=== PATIENT | male | born 1945 | race Caucasian/White ===

== ENCOUNTER → 2018-01-19 08:03 | Outpatient (CLI) | payer MEDICARE, SELFPAY ==
[2018-01-19 10:19] LABS: AST(SGOT) 24 U/L (15-37); Alanine Aminotransfer ALT/SGPT 34 U/L (16-61); Albumin, Serum 3.9 g/dL (3.2-5.0); Alkaline Phosphatase 70 U/L (45-117); Bilirubin, Direct 0.18 mg/dL (0.00-0.30); Cholesterol 125 mg/dL (200); Globulin 3.7 g/dL (2.2-4.2); High Density Lipoprotein 54 mg/dL; Protein, Total 7.6 g/dL (6.4-8.2); Triglycerides 80 mg/dL; Very Low Density Lipoprotein 16 mg/dL (5-40)
== END ==
PROVIDERS: Family Provider Family Medicine; PCP Family Medicine; Visit Provider Physician Assistant Medical
DX: E78.5 Hyperlipidemia, unspecified (principal); Z79.899 Other long term (current) drug therapy
CPT/HCPCS: 36415; 80061; 80076

== ENCOUNTER → 2018-02-08 06:11 | Outpatient (CLI) | payer MEDICARE, SELFPAY ==
--- NOTE | 2018-02-08 10:33 | STRESSREP ---
Stress Test Report Pharmacologic myocardial perfusion stress test. 72-year-old man with a history of chest pain. Medications: Aspirin metoprolol atorvastatin Plavix. Stress protocol: Resting EKG demonstrates sinus bradycardia with a rate of 56 bpm normal intervals and noted resting blood pressure is 138/84 mmHg. The patient exercised according to regular Jovanni protocol for 6 minutes and 45 seconds attaining a maximum heart rate of 153 bpm which was 103% of maximum predicted heart rate the maximum workload was 8.1 metabolic equivalents. At rest there were no ST or T-wave changes noted suggest ischemia peak exercise upsloping ST changes only were noted would not be the criteria for ischemia. No clinical angina was noted the test was terminated due to leg fatigue. The resting blood pressure 138/84 with a peak blood pressure 172/82. Myocardial perfusion protocol. 14.3 mCi of technetium 99m sestamibi was injected at rest. The patient exercised according to regular Jovanni protocol for 6 minutes and 45 seconds at 103% of maximum predicted heart rate at peak exercise 44.4 mCi of technetium 99m sestamibi was injected stress images were obtained stress and rest images were reconstructed and compared in the short axis vertical long and horizontal long axis. Gated images were also obtained. Perfusion SPECT analysis: Review of the stress images demonstrate normal uptake of tracer noted in all areas of the myocardium the resting images similarly demonstrate normal uptake of tracer noted in all areas of the myocardium. No areas of reversibility are noted suggest ischemia and no previous infarct is noted. Gated SPECT analysis: The gated ejection fraction is noted to be 66%. Conclusion: Normal exercise myocardial perfusion stress test at a moderate workload No clinical angina noted. Good functional aerobic capacity. Preserved ejection fraction.
== END ==
PROVIDERS: Family Provider Family Medicine; PCP Family Medicine; Visit Provider Internal Medicine Cardiovascular Disease
DX: R07.89 Other chest pain (principal)
CPT/HCPCS: 78452; 93017; A9500; A4216

== ENCOUNTER → 2018-07-19 08:08 | Outpatient (CLI) | payer MEDICARE, SELFPAY ==
[2018-07-19 09:20] LABS: AST(SGOT) 24 U/L (15-37); Alanine Aminotransfer ALT/SGPT 36 U/L (16-61); Albumin, Serum 3.9 g/dL (3.2-5.0); Alkaline Phosphatase 67 U/L (45-117); Bilirubin, Direct 0.21 mg/dL (0.00-0.30); Cholesterol 123 mg/dL (200); Globulin 3.6 g/dL (2.2-4.2); High Density Lipoprotein 47 mg/dL; PSA,Total- Diagnostic 8.71 ng/mL (0.0-4.0); Protein, Total 7.5 g/dL (6.4-8.2); Triglycerides 71 mg/dL; Very Low Density Lipoprotein 14 mg/dL (5-40)
== END ==
PROVIDERS: Family Provider Family Medicine; PCP Family Medicine; Referring Provider Physician Assistant Medical; Visit Provider Physician Assistant Medical
DX: E78.5 Hyperlipidemia, unspecified (principal); R97.20 Elevated prostate specific antigen [PSA]
CPT/HCPCS: 36415; 80061; 80076; 84153

== ENCOUNTER → 2019-01-18 | Outpatient (CLI) | payer MEDICARE, SELFPAY ==
[2019-01-18 08:49] LABS: AST(SGOT) 27 U/L (15-37); Alanine Aminotransfer ALT/SGPT 37 U/L (16-61); Albumin, Serum 3.9 g/dL (3.2-5.0); Alkaline Phosphatase 80 U/L (45-117); Bilirubin, Direct 0.24 mg/dL (0.00-0.30); Cholesterol 116 mg/dL (200); Globulin 3.4 g/dL (2.2-4.2); High Density Lipoprotein 47 mg/dL; Protein, Total 7.3 g/dL (6.4-8.2); Triglycerides 79 mg/dL; Very Low Density Lipoprotein 16 mg/dL (5-40)
== END | disposition home or self-care (01) ==
PROVIDERS: Referring Provider Physician Assistant Medical; Visit Provider Physician Assistant Medical
DX: E78.5 Hyperlipidemia, unspecified (principal)
CPT/HCPCS: 36415; 80061; 80076

== ENCOUNTER → 2019-01-25 11:24 | Outpatient (CLI) | payer MEDICARE, SELFPAY ==
[2019-01-25 10:13] VITALS: BMI 26.6
== END ==
PROVIDERS: Family Provider Family Medicine; PCP Family Medicine; Referring Provider Internal Medicine Cardiovascular Disease; Visit Provider Internal Medicine Cardiovascular Disease
DX: R55 Syncope and collapse (principal); R00.1 Bradycardia, unspecified
CPT/HCPCS: 93225; 93226

== ENCOUNTER → 2019-02-17 08:23 | Outpatient (CLI) | payer MEDICARE, SELFPAY ==
[2019-01-25 10:13] VITALS: BMI 26.6
--- NOTE | 2019-02-17 08:24 | ECHOCS_ITS ---
Reason For Study: CAD/ASHD Procedure This was a 2D Doppler, Color Flow transthoracic echocardiogram. Exam performed in department. Left Ventricle Normal LV size. Left ventricular systolic function is normal. The estimated ejection fraction is 55 %. Stage 2 diastolic dysfunction. No regional wall motion abnormalities noted. Right Ventricle Normal RV size. Normal systolic function. Atria Normal left atrium. Normal right atrium. Mitral Valve Normal mitral valve. Tricuspid Valve Normal tricuspid valve. Mild (1+) tricuspid valve insufficiency. Pulmonary artery systolic pressure is 35 mmHg. Aortic Valve Normal aortic valve. Trisinus/trileaflet aortic valve. Pulmonic Valve Normal pulmonic valve. Great Vessels Normal aortic root. The pulmonary artery is normal size. Normal inferior vena cava. Pericardium/Pleural No pericardial effusion. Medication 22 gauge I.V. with prn adaptor inserted into right arm. Diluted definity 4ml given slow IV push to enhance endocardial definition. MMode/2D Measurements & Calculations LVIDd: 4.8 cm IVSd: 0.69 cm Ao root diam: 3.3 cm LVIDs: 3.3 cm LVPWd: 0.81 cm RVDd: 3.3 cm FS: 31.9 % LAV(MOD-bp): 58.3 ml LVAd ap4: 30.5 cm2 SV(MOD-sp4): 51.1 ml LAV(MOD-bp) Indexed: 26.3 ml/m2 EDV(MOD-sp4): 90.6 ml LAV(MOD-sp2): 61.8 ml EDV(sp4-el): 93.1 ml LAV(MOD-sp4): 54.2 ml LVAs ap4: 18.1 cm2 ESV(MOD-sp4): 39.5 ml ESV(sp4-el): 39.5 ml EF(MOD-sp4): 56.4 % EF(sp4-el): 57.6 % SV(sp4-el): 53.6 ml LA A4 area: 19.7 cm2 LA dimension(2D): 3.6 cm RA A4 area: 17.2 cm2 Time Measurements MV dec time: 0.18 sec Doppler Measurements & Calculations MV E max reese: 92.6 cm/sec Lat Peak E' Reese: 11.6 cm/sec Med Peak E' Reese: 12.3 cm/sec MV A max reese: 56.4 cm/sec E/E' lat: 8.0 E/E' med: 7.5 MV E/A: 1.6 Ao V2 max: 113.2 cm/sec LV V1 max: 106.1 cm/sec PA V2 max: 86.3 cm/sec Ao max P.1 mmHg LV V1 max P.5 mmHg TR max reese: 276.4 cm/sec TR max P.7 mmHg Interpretation Summary Normal LV size. Left ventricular systolic function is normal. The estimated ejection fraction is 55 %. Stage 2 diastolic dysfunction. Mild (1+) tricuspid valve insufficiency. Contrast injection was performed. Ordering Physician: Joshua Bennett Referring Physician: DENNIS SHAIKH Performed By: Maryse Truong RDCS
== END ==
PROVIDERS: Family Provider Family Medicine; PCP Family Medicine; Referring Provider Internal Medicine Cardiovascular Disease; Visit Provider Internal Medicine Cardiovascular Disease
DX: R55 Syncope and collapse (principal)
CPT/HCPCS: 93306; Q9957; A4216; C8929

== ENCOUNTER → 2019-08-10 07:33 | Outpatient (CLI) | payer MEDICARE, SELFPAY ==
[2019-01-25 10:13] VITALS: BMI 26.6
[2019-08-10 08:57] LABS: AST(SGOT) 21 U/L (15-37); Alanine Aminotransfer ALT/SGPT 34 U/L (16-61); Albumin, Serum 3.8 g/dL (3.2-5.0); Alkaline Phosphatase 70 U/L (45-117); Bilirubin, Direct 0.22 mg/dL (0.00-0.30); Cholesterol 133 mg/dL (200); Globulin 3.6 g/dL (2.2-4.2); High Density Lipoprotein 60 mg/dL; Protein, Total 7.4 g/dL (6.4-8.2); Triglycerides 71 mg/dL; Very Low Density Lipoprotein 14 mg/dL (5-40)
== END ==
PROVIDERS: Family Provider Family Medicine; PCP Family Medicine; Referring Provider Physician Assistant Medical; Visit Provider Physician Assistant Medical
DX: E78.5 Hyperlipidemia, unspecified (principal)
CPT/HCPCS: 36415; 80061; 80076

== ENCOUNTER → 2020-02-09 08:26 | Outpatient (CLI) | payer MEDICARE, SELFPAY ==
[2019-08-18 08:30] VITALS: BMI 27.2
[2020-02-09 09:50] LABS: AST(SGOT) 26 U/L (15-37); Alanine Aminotransfer ALT/SGPT 38 U/L (16-61); Albumin, Serum 3.7 g/dL (3.2-5.0); Alkaline Phosphatase 75 U/L (45-117); Bilirubin, Direct 0.21 mg/dL (0.00-0.30); Cholesterol 115 mg/dL (200); Globulin 3.4 g/dL (2.2-4.2); High Density Lipoprotein 56 mg/dL; Protein, Total 7.1 g/dL (6.4-8.2); Triglycerides 63 mg/dL; Very Low Density Lipoprotein 13 mg/dL (5-40)
== END ==
PROVIDERS: PCP Family Medicine; Referring Provider Physician Assistant Medical; Visit Provider Physician Assistant Medical
DX: E78.00 Pure hypercholesterolemia, unspecified (principal); E78.5 Hyperlipidemia, unspecified
CPT/HCPCS: 36415; 80061; 80076

== ENCOUNTER → 2020-08-16 07:45 | Outpatient (CLI) | payer MEDICARE, SELFPAY ==
[2019-08-18 08:30] VITALS: BMI 27.2
[2020-08-16 08:43] LABS: AST(SGOT) 25 U/L (15-37); Alanine Aminotransfer ALT/SGPT 38 U/L (16-61); Albumin, Serum 3.8 g/dL (3.2-5.0); Alkaline Phosphatase 80 U/L (45-117); Bilirubin, Direct 0.24 mg/dL (0.00-0.30); Cholesterol 130 mg/dL (200); Globulin 3.7 g/dL (2.2-4.2); High Density Lipoprotein 58 mg/dL; Protein, Total 7.5 g/dL (6.4-8.2); Triglycerides 61 mg/dL; Very Low Density Lipoprotein 12 mg/dL (5-40)
== END ==
PROVIDERS: PCP Family Medicine; Referring Provider Internal Medicine Cardiovascular Disease; Visit Provider Internal Medicine Cardiovascular Disease
DX: E78.00 Pure hypercholesterolemia, unspecified (principal); E78.5 Hyperlipidemia, unspecified
CPT/HCPCS: 36415; 80061; 80076

== ENCOUNTER → 2021-08-20 08:09 | Outpatient (CLI) | payer MEDICARE, SELFPAY ==
[2021-08-20 09:03] LABS: AST(SGOT) 25 U/L (15-37); Alanine Aminotransfer ALT/SGPT 40 U/L (16-61); Albumin, Serum 3.7 g/dL (3.2-5.0); Alkaline Phosphatase 76 U/L (45-117); Bilirubin, Direct 0.18 mg/dL (0.00-0.30); Cholesterol 127 mg/dL (200); Globulin 3.6 g/dL (2.2-4.2); High Density Lipoprotein 50 mg/dL; Protein, Total 7.3 g/dL (6.4-8.2); Triglycerides 90 mg/dL; Very Low Density Lipoprotein 18 mg/dL (5-40)
== END ==
PROVIDERS: PCP Family Medicine; Referring Provider Internal Medicine Cardiovascular Disease; Visit Provider Internal Medicine Cardiovascular Disease
DX: E78.00 Pure hypercholesterolemia, unspecified (principal)
CPT/HCPCS: 36415; 80061; 80076

== ENCOUNTER → 2021-09-03 07:12 | Outpatient (CLI) | payer MEDICARE, SELFPAY ==
--- NOTE | 2021-09-03 17:34 | STRESSREP ---
Stress Test Report Exercise myocardial perfusion stress test. 75-year-old man with a history of coronary artery disease. Medications losartan aspirin atorvastatin Plavix. Stress protocol: Resting EKG demonstrates normal sinus rhythm with a rate of 62 bpm normal intervals are noted resting blood pressure is 128/84 mmHg. The patient exercised according to the regular Jovanni protocol for total duration of 6 minutes and 21 seconds. Patient completed 21 seconds into stage III of the Jovanni protocol the maximum heart rate attained was 148 bpm which was 102% of max impact at heart rate and the maximum workload was 8 metabolic equivalents. At rest there were no ST or T wave changes noted to suggest ischemia and at peak exercise upsloping ST changes less than 1 mm were noted with did not meet the criteria for ischemia. No clinical angina was noted the test was terminated due to target heart rate being achieved. Myocardial perfusion protocol. 13.8 mCi of technetium 99m sestamibi was injected at rest. The patient exercised according to regular Jovanni protocol for 6-1/2 minutes and at peak exercise 44.1 mCi of technetium 99m sestamibi was injected stress images were obtained stress and rest images were reconstructed and compared in the short axis vertical long and horizontal long axis. Gated images were also obtained per Perfusion SPECT analysis: Review of the stress images demonstrate normal uptake of tracer noted in all areas of the myocardium. The resting images similarly demonstrate normal uptake of tracer noted in all areas of the myocardium. No areas of reversibility are noted to suggest ischemia and no evidence of previous infarct is noted. Gated SPECT analysis: The gated ejection fraction is 50%. Conclusion: Normal exercise myocardial perfusion stress test at a moderate workload. Preserved ejection fraction.
== END ==
PROVIDERS: PCP Family Medicine; Referring Provider Internal Medicine Cardiovascular Disease; Visit Provider Internal Medicine Cardiovascular Disease
DX: Z95.5 Presence of coronary angioplasty implant and graft (principal); I25.10 Atherosclerotic heart disease of native coronary artery without angina pectoris
CPT/HCPCS: 78452; 93017; A9500; A4216

== ENCOUNTER → 2022-08-20 | Outpatient (CLI) | payer MEDICARE, SELFPAY ==
[2022-08-20 09:29] LABS: AST(SGOT) 26 U/L (15-37); Alanine Aminotransfer ALT/SGPT 34 U/L (16-61); Alkaline Phosphatase 74 U/L (45-117); Bilirubin, Direct 0.25 mg/dL (0.00-0.30); Cholesterol 132 mg/dL (200); Globulin 3.7 g/dL (2.2-4.2); High Density Lipoprotein 60 mg/dL; Protein, Total 7.7 g/dL (6.4-8.2); Triglycerides 63 mg/dL; Very Low Density Lipoprotein 13 mg/dL (5-40)
== END | disposition home or self-care (01) ==
LOC: LAB 08:25
PROVIDERS: PCP Family Medicine; Referring Provider Internal Medicine Cardiovascular Disease; Visit Provider Internal Medicine Cardiovascular Disease
DX: E78.00 Pure hypercholesterolemia, unspecified (principal)
CPT/HCPCS: 36415; 80061; 80076

== ENCOUNTER → 2023-05-28 | Outpatient (CLI) | payer MEDICARE, SELFPAY ==
[2023-05-28 09:43] LABS: AST(SGOT) 29 U/L (15-37); Alanine Aminotransfer ALT/SGPT 43 U/L (16-61); Albumin, Serum 3.9 g/dL (3.2-5.0); Alkaline Phosphatase 74 U/L (45-117); Bilirubin, Direct 0.22 mg/dL (0.00-0.30); Cholesterol 101 mg/dL (200); Globulin 3.6 g/dL (2.2-4.2); High Density Lipoprotein 42 mg/dL; Protein, Total 7.5 g/dL (6.4-8.2); Triglycerides 51 mg/dL; Very Low Density Lipoprotein 10 mg/dL (5-40)
== END | disposition home or self-care (01) ==
LOC: LAB 08:27
PROVIDERS: PCP Family Medicine; Referring Provider Internal Medicine Cardiovascular Disease; Visit Provider Internal Medicine Cardiovascular Disease
DX: E78.00 Pure hypercholesterolemia, unspecified (principal)
CPT/HCPCS: 36415; 80061; 80076

== ENCOUNTER → 2024-05-27 | Outpatient (CLI) | payer MEDICARE, SELFPAY ==
[2024-05-27 11:03] LABS: Absolute Lymphocyte Count 2.29 X10^3/uL (0.83-4.51); Absolute Neutrophil Count 3.9 X10^3/uL (2.0-7.7); Basophil# 0.05 X10^3/uL; Basophil% 0.7 % (0-1); Eosinophil# 0.08 X10^3/uL; Eosinophils% 1.2 % (0-5); Hematocrit 40.4 % (40-54); Lymphocyte # 2.29 X10^3/ul (0.83-4.51); Lymphocyte % 33.6 % (19-41); Mean Corp Hgb Conc 32.2 g/dL (32-36); Mean Corpuscular Volume 93.1 fL (80-94); Mean Platelet Vol. 9.6 fl (6.2-12.0); Monocyte# 0.53 X10^3/uL; Monocyte% 7.8 % (0-10); NRBC Flagged by Analyzer 0 % (0-5); Neutrophil # 3.85 X10^3/uL (2.7-7.7); Neutrophil % 56.4 % (47-70); Platelet Count 200 K/mm3 (150-450); RBC Distribution Width CV 16.2 % (11.6-14.6); Red Blood Count 4.34 M/mm3 (4.6-6.2); White Blood Count 6.8 K/mm3 (4.4-11.0)
[2024-05-27 11:41] LABS: CRP < 2.90 mg/L (0.0-3.0)
[2024-05-27 11:54] LABS: Erythrocyte Sedimentation Rate 6 mm/hr (0-20)
== END | disposition home or self-care (01) ==
PROVIDERS: PCP Family Medicine; Referring Provider Specialist; Visit Provider Specialist
DX: Z96.651 Presence of right artificial knee joint (principal)
CPT/HCPCS: 36415; 85025; 85652; 86140

== ENCOUNTER → 2024-07-21 | Outpatient (CLI) | payer MEDICARE, SELFPAY ==
[2024-07-21 10:31] LABS: AST(SGOT) 19 U/L (15-37); Alanine Aminotransfer ALT/SGPT 29 U/L (16-61); Albumin, Serum 3.9 g/dL (3.2-5.0); Alkaline Phosphatase 74 U/L (45-117); Bilirubin, Direct 0.25 mg/dL (0.00-0.30); Cholesterol 116 mg/dL (200); Globulin 3.9 g/dL (2.2-4.2); High Density Lipoprotein 58 mg/dL; Protein, Total 7.8 g/dL (6.4-8.2); Triglycerides 61 mg/dL; Very Low Density Lipoprotein 12 mg/dL (5-40)
== END | disposition home or self-care (01) ==
LOC: LAB 08:17
PROVIDERS: PCP Family Medicine; Referring Provider Physician Assistant Medical; Visit Provider Physician Assistant Medical
DX: E78.00 Pure hypercholesterolemia, unspecified (principal)
CPT/HCPCS: 36415; 80061; 80076

== ENCOUNTER → 2024-08-08 | Outpatient (CLI) | payer MEDICARE, SELFPAY ==
--- OUTSIDE RECORDS SUMMARY | 2024-08-08 06:00 | XMS RPT_ITS | CCD ---
Author Organization [facility] Care Team Providers Care Street Supervisor Name Role Phone DENNIS SHAIKH DO Primary Care Physician [phone] Jai MARSHALL, Shawna Unavailable Unavailable Anu Dominguez Primary Care Provider [phone] Anu Dominguez Primary Care Provider [phone] DENNIS SHAIKH DO Primary Care Physician [phone] [employer] DENNIS North DO Primary Care Unavailable MATY NAVARRO, DR JUDSON Whitehead Attending Unavailab stella RUTLEDGE MD, DR JUDSON Whitehead Admitting Unavailab stella SHAIKH DO, DENNIS Primary Care Unavailable EMIR CORDERO DO Attending Unavailable HAWA LUIS, DENNIS Primary Care Unavailable MATY NAVARRO, DR JUDSON Whitehead Attending Unavailab ERASMO Leiva Attending Tabitha SHAIKH DO, DENNIS Primary Care Unavailable HAWA LUIS, DENNIS Primary Care Unavailable DENNIS SHAIKH DO Attending Unavailable MATY NAVARRO, DR JUDSON Whitehead Attending Unavailab stella SHAIKH DO, DENNIS Primary Care Unavailable HAWA LUIS, DENNIS Primary Care Unavailable MATY NAVARRO, DR JUDSON Whitehead Attending Unavailab stella SHAIKH DO, DENNIS Primary Care Unavailable LENKA DEXTER PA-C Attending Unavailable LASHELL HALL, ERASMO Stringer Attending Unavai soo SHAIKH DO, DENNIS Primary Care Unavailable HAWA DO, DENNIS Primary Care Unavailable DENNIS SHAIKH DO Attending Unavailable Anu Dominguez Primary Care Provider Dennis Shaikh DO Primary Care Provider [phone] DENNIS SHAIKH Primary Care Unavailable TEENA CROCKETT Attending Unavailable ANU DOMINGUEZ Primary Care Unavailable TEENA CROCKETT Attending Unavailable Allergies Allergy Classification Reported Allergen(s) Allergy Type Date of Onset Reaction(s) Facility (13 sources) Diclofenac; Translations: [diclofenac topical] Drug Allergy Swelling [facility] (18 sources) Fluorouracil; Translations: [fluorouracil topical] Drug Allergy 08-18-2019 Rash [facility] (11 sources) Diclofenac; Translations: [DICLOFENAC SODIUM] Drug Allergy 07-23-2017 Swelling [facility] Work Phone: Medications Current Medications Medication Drug Class(es) Dates Sig (Normalized) Sig (Original) acetaminophen 1000 mg oral tablet (5 sources) Start: 12-02-2023 take 1 tablet by mouth once daily Tylenol Dose : 1,000 mg = 2 tab(s), Oral, TID, not to exceed 3000 mg/day, 0 Refill(s) Start Date: 12/02/23 Status: Ordered aspirin 81 mg oral tablet (20 sources) Platelet Aggregation Inhibitor, Nonsteroidal Anti-inflammatory Drug Start: 12-02-2023 take 1 tablet by mouth twice daily at mealtime aspirin Dose : 81 mg = 1 tab(s), Oral, BIDM, Take 81 mg aspirin twice daily with food for 4 weeks postoperatively for DVT prophylaxis., 0 Refill(s) Start Date: 12/02/23 Status: Ordered Start: 08-31-2019 take 1 dose by mouth once judi y aspirin Dose : 81 mg =, Oral, qDay, 0 Refill(s) Start Date: 08/31/19 Status: Ordered Start: 11-27-2011 take 1 tablet by [facility] once daily aspirin 81 mg ORAL chewable tablet Take 1 tablet by mouth once daily. 0 11/27/2011 Active Comment on above: Take 1 tablet by helena [facility] once daily. atorvastatin 80 mg oral tablet (20 sources) HMG-CoA Reductase Inhibitor Start: 6 Lipitor 80 mg oral tablet Dose : 80 mg = 1 tab(s), Oral, Daily Start Date: 07/27/16 Status: Ordered Comment on above: take one tablet judi y citalopram 20 mg oral tablet (1 source) Serotonin Reuptake Inhibitor Start: 3 citalopram 20 mg oral tablet Dose : 20 mg = 1 tab(s), Oral, qDay, Start with taking 1/2 tablet daily for 2 weeks then increase to 1 whole tablet daily. Discontinue Zoloft prescription please, # 30 tab(s), 2 Refill(s), Pharmacy: [facility]/pharmacy #[id number], Depression Anxiety, 186.5, cm... Start Date: 03/17/23 Status: Ordered clopidogrel 75 mg oral tablet (20 sources) P2Y12 Platelet Inhibitor Start: 6 Plavix 75 mg oral tablet Dose : 75 mg = 1 tab(s), Oral, Daily Start Date: 07/27/16 Status: Ordered Comment on above: take one tablet judi y docusate sodium 50 mg / sennosides, nursing home 8.6 mg oral tablet (2 sources) Start: 4 End: 4 take 1 tablet by mouth twice daily Senokot S 50 mg-8.6 mg oral tablet Dose = 2 tab(s), Oral, BID, Take until first bowel movement, then as needed, X 3 day(s), # 12 tab(s), 0 Refill(s), Pharmacy: [facility]/pharmacy #[id number], 186, cm, 12/01/23 14:02:00 EST, Height, kg, 12/01/23 14:02:00 EST, Dosing Weight Start Date: 12/02/23 Stop Date: 12/05/23 Status: Ordered doxycycline hyclate 100 mg oral capsule (2 sources) Tetracycline-class Drug Start: 4 End: 4 doxycycline hyclate 100 mg oral capsule Dose : 100 mg = 1 cap(s), Oral, q12h, X 14 day(s), # 28 cap(s), 0 Refill(s), 12/16/23 7:40:00 AM EST, Pharmacy: [facility]/pharmacy #[id number], 186, cm, 12/01/23 14:02:00 EST, Height, 97.1, kg, 12/01/23 14:02:00 EST, Dosing Weight Start Date: 12/02/23 Stop Date: 12/16/23 Status: Ordered famotidine 20 mg oral tablet (4 sources) Histamine-2 Receptor Antagonist Start: 4 Pepcid 20 mg oral tablet Dose : 20 mg = 1 tab(s), Oral, qDay, # 30 tab(s), 0 Refill(s), Pharmacy: [facility]/pharmacy #[id number], 186, cm, 12/01/23 14:02:00 EST, Height, kg, 12/01/23 14:02:00 EST, Dosing Weight Start Date: 12/02/23 Status: Ordered iv contrast (will be provided with radiology test) (10 sources) Start: 1 iv contrast (will be provided with radiology test) Indications: Elevated prostate specific antigen (PSA) MRI Prostate Inject, intravenously, once for 1 dose. No IV access, insert saline lock prior to the beginning of sedation, infusion, injection of imaging exam. Discontinue saline lock post exam. If Pt. has a central line or IVAD, may access for administration according to line specific nursing protocol. Once exam is complete flush line and de-access according to line specific nursing protocol in the MR contrast administration guidelines link. 1 Each 09/20/2021 Active Start: 09-20-2021 iv contrast (w ill be provided with radiology test) Indications: Elevated prostate specific antigen (PSA) MRI Prostate Inject, intravenously, once for 1 dose. No IV access, insert saline lock prior to the beginning of sedation, infusion, injection of imaging exam. Discontinue saline lock post exam. If Pt. has a central line or IVAD, may access for administration according to line specific nursing protocol. Once exam is complete flush line and de-access according to line specific nursing protocol in the MR contrast administration guidelines link. 1 Each 0 09/20/2021 Active Comment on above: MRI Prostate Inject, intravenously, once for 1 dose. No IV access, insert saline lock prior to the beginning of sedation, infusion, injection of imaging exam. Discontinue saline lock post exam. If Pt. has a central line or IVAD, may access for administration according to line specific nursing protocol. Once exam is complete flush line and de-access according to line specific nursing protocol in the MR contrast administration guidelines link. lisinopril 10 mg oral tablet (10 sources) Angiotensin Converting Enzyme Inhibitor Start: 020 take 1 tablet by mouth once daily lisinopril (ZESTRIL, PRINIVIL) 10 mg tablet Take 10 mg by mouth once daily. 08/23/2020 Active Comment on above: Take 10 mg by mouth once daily. losartan potassium 50 mg oral tablet (20 sources) Angiotensin 2 Receptor Jeremy Start: take 1 tablet by mouth once daily losartan (COZAAR) 50 mg tablet Take 50 mg by mouth once daily. 09/11/2021 Active Comment on above: Take 50 mg by mouth once daily. oxyCODONE hydrochloride 5 mg oral tablet (2 sources) Opioid Agonist Start: End: take 1-2 tablets by mouth every four hours as needed for pain oxyCODONE 5 mg oral tablet ( IMMEDIATE release ) See Instructions, PRN as needed for pain, 1-2 tab(s) Oral q4h, # 42 tab(s), 0 Refill(s), 12/09/23 7:41:00 AM EST, Pharmacy: [facility]/pharmacy #[id number], Status post revision of total replacement of right knee, 186, cm, 12/01/23 14:02:00 EST, Height, 97.1, kg, 12/01/23 14:02:00 EST, Dosing Weight Start Date: 12/02/23 Stop Date: 12/09/23 Status: Ordered pantoprazole 20 mg delayed release oral tablet (1 source) Proton Pump Inhibitor Start: Protonix 20 mg oral enteric coated tablet Dose : 20 mg = 1 tab(s), Oral, qDay, # 30 tab(s), 5 Refill(s), Pharmacy: [facility]/pharmacy #[id number], GERD (gastroesophageal reflux disease), 186.8, cm, 09/11/21 13:24:00 EST, Height, kg, 09/11/21 13:24:00 EST, Dosing Weight Start Date: 09/11/21 Status: Ordered sertraline 100 mg oral tablet (20 sources) Serotonin Reuptake Inhibitor Start: take 1 tablet by mouth once daily sertraline hcl(ZOLOFT 100 MG TAB) Take 100 mg by mouth once daily. 0 12/07/2008 Active Comment on above: Take one(1) tablet d aily. sulfamethoxazole 800 mg / trimethoprim 160 mg oral tablet (2 sources) Dihydrofolate Reductase Inhibitor Antibacterial, Sulfonamide Antimicrobial Start: End: take 1 tablet by mouth every twelve hours Bactrim DS 800 mg-160 mg oral tablet 1, Oral, q12h, X 7 day(s), # 14 tab(s), 0 Refill(s), [id number], 185.5, cm, 01/28/24 14:02:00 EDT, Height, 95.5, kg, 01/28/24 14:02:00 EDT, Dosing Weight Start Date: 01/28/24 Stop Date: 02/04/24 Status: Ordered Start: 01-19-2024 End: 01-26-2024 take 1 tablet by mouth every twelve hours Bactrim DS 800 mg-160 mg oral tablet Dose = 1 tab(s), Oral, q12h, Dosage expressed as trimethoprim, X 7 day(s), # 14 tab(s), 0 Refill(s), [id number], 185.4, cm, 01/19/24 13:20:00 EDT, Height, 96.8, kg, 01/19/24 13:07:00 EDT, Dosing Weight Start Date: 01/19/24 Stop Date: 01/26/24 Status: Ordered tamsulosin hydrochloride 0.4 mg oral capsule (20 sources) alpha-Adrenergic Jeremy Start: 08-15-2019 End: 08-03-2024 take 1 capsule by mouth once daily tamsulosin (FLOMAX) 0.4 mg take 1 capsule by mouth every day 90 capsule 3 08/03/2024 Active Comment on above: TAKE 1 CAPSULE BY [facility] ONCE DAILY Take 1 capsule by [facility] once daily. vitamin B12 (5 sources) Vitamin B12 Start: 11-10-2023 Vitamin B12 unsure what dose, 0 Refill(s) Start Date: 11/10/23 Status: Ordered Vitamin D3 1250 mcg (50,000 intl units) oral capsule (12 sources) Start: 09-16-2023 End: 09-10-2024 Vitamin D3 1250 mcg (50,000 intl units) oral capsule Dose : 1,250 mcg = 1 cap(s), Oral, qWeek, # 13 cap(s), 3 Refill(s), Pharmacy: [facility]/pharmacy #[id number], Vitamin D deficiency, 186, cm, 09/16/23 11:12:00 EST, Height, kg, 09/16/23 11:12:00 EST, Dosing Weight Start Date: 09/16/23 Stop Date: 09/10/24 Status: Ordered Start: 09-12-2022 End: 09-07-2023 Vitamin D3 1250 mcg (50,000 intl units) oral capsule Dose : 1,250 mcg = 1 cap(s), Oral, qWeek, # 13 cap(s), 3 Refill(s), Pharmacy: [facility]/pharmacy #[id number], Vitamin D deficiency, 187, cm, 09/12/22 10:07:00 EST, Height, kg, 09/12/22 10:07:00 EST, Dosing Weight Start Date: 09/12/22 Stop Date: 09/07/23 Status: Ordered Start: 09-12-2021 End: 09-07-2022 Vitamin D3 1250 mcg (50,000 intl units) oral capsule Dose : 1,250 mcg = 1 cap(s), Oral, qWeek, # 13 cap(s), 3 Refill(s), Pharmacy: [facility]/pharmacy #[id number], Vitamin D deficiency, 186.8, cm, 09/11/21 13:24:00 EST, Height, kg, 09/11/21 13:24:00 EST, Dosing Weight Start Date: 09/12/21 Stop Date: 09/07/22 Status: Ordered Completed/Discontinued Medications Medication Drug Class(es) Dates Sig (Normalized) Sig (Original) 24 hr metoprolol succinate 25 mg extended release oral tablet (20 sources) beta-Adrenergic Jeremy Start: 12-02-2023 End: 12-03-2023 Toprol-XL 25 mg oral tablet, extended release Start: 12/03/23 8:00:00 AM EST, Dose = 25 mg, = 1 tab(s), Oral, 0, 12/01/23 15:27:00 EST Start Date: 12/03/23 Stop Date: 12/03/23 Status: Completed Start: 08-15-2019 Metoprolol Suc cinate ER 25 mg oral tablet, extended release Dose : 25 mg = 1 tab(s), Oral, qDay, # 30 tab(s), 0 Refill(s) Start Date: 08/15/19 Status: Ordered metoprolol tartr ate 25 mg ORAL tablet Take by mouth once daily. Active Comment on above: take one tablet twic e daily Problems Active Problems Problem Classification Problem Date Documented Date Episodic/Chronic Acute myocardial infarction (5 sources) Myocardial infarction 07-27-2016 Chronic Anxiety disorders (9 sources) Anxiety disorder; Translations: [Anxiety disorder, unspecified] Chronic Coronary atherosclerosis and other heart disease (20 sources) Coronary arteriosclerosis; Translations: [History of myocardial infarction] 07-27-2016 Chronic Diabetes mellitus without complication (13 sources) Hyperglycemia 08-21-2020 Episodic Disorders of lipid metabolism (13 sources) Hypercholesterolemia 08-19-2019 Chronic Esophageal disorders (13 sources) Gastroesophageal reflux disease 09-11-2021 Chronic Essential hypertension (17 sources) Hypertensive disorder; Translations: [Essential hypertension] Onset: 3 08-19-2019 Chronic Genitourinary symptoms and ill-defined conditions (1 source) Urinary incontinence; Translations: [Unspecified urinary incontinence] 06-02-2023 Chronic Hemorrhoids (13 sources) Hemorrhoids 08-19-2019 Episodic Hyperplasia of prostate (20 sources) Benign prostatic hypertrophy with outflow obstruction; Translations: [Benign prostatic hyperplasia with lower urinary tract symptoms] Onset: 9 12-07-2008 Chronic Malaise and fatigue (9 sources) Fatigue; Translations: [Other fatigue] Episodic Mood disorders (20 sources) Depressive disorder; Translations: [Major depressive disorder] Onset: 4 07-27-2016 Chronic Nutritional deficiencies (12 sources) Vitamin D deficiency; Translations: [Vitamin D deficiency, unspecified] 03-12-2022 Chronic Nutritional deficiencies (7 sources) Cobalamin deficiency 05-19-2023 Episodic Osteoarthritis (14 sources) Osteoarthritis of left knee joint; Translations: [Osteoarthritis] Onset: 4 08-30-2019 Chronic Other aftercare (1 source) Follow-up orthopedic assessment; Translations: [Aftercare following joint replacement surgery] Chronic Other connective tissue disease (3 sources) Artificial knee joint present; Translations: [Presence of unspecified artificial knee joint] Onset: 4 Chronic Other connective tissue disease (1 source) Disorder of soft tissue; Translations: [Other specified soft tissue disorders] Episodic Other diseases of kidney and ureters (1 source) Disorder of kidney and/or ureter; Translations: [Disorder of kidney and ureter, unspecified] Onset: 4 Episodic Other ear and sense organ disorders (13 sources) 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 01-25-2020 Chronic Other ear and sense organ disorders (13 sources) Sensorineural hearing loss, bilateral 03-20-2020 Chronic Other injuries and conditions due to external causes (1 source) Traumatic AND/OR non-traumatic injury; Translations: [Other injury of unspecified body region, initial encounter] Onset: 4 Episodic Other male genital disorders (10 sources) Erectile dysfunction co-occurrent and due to arterial insufficiency; Translations: [Erectile dysfunction due to arterial insufficiency] Onset: 4 12-22-2013 Chronic Other nervous system disorders (1 source) Walking disability; Translations: [Difficulty in walking, not elsewhere classified] Chronic Other nervous system disorders (1 source) Muscle fasciculation; Translations: [Fasciculation] Episodic Other nervous system disorders (8 sources) Muscle twitch 03-17-2023 Episodic Other non-epithelial cancer of skin (13 sources) Malignant neoplasm of skin 07-27-2016 Episodic Comment on above: basal & squamous guy l Other non-traumatic joint disorders (11 sources) Shoulder pain 03-12-2022 Episodic Other non-traumatic joint disorders (5 sources) Knee pain 11-10-2023 Episodic Other non-traumatic joint disorders (1 source) Pain in right knee; Translations: [Pain of right knee joint] Episodic Residual codes; unclassified (13 sources) Needs influenza immunization 09-11-2021 Episodic Residual codes; unclassified (5 sources) Preoperative state 11-10-2023 Episodic Spondylosis; intervertebral disc disorders; other back problems (20 sources) Low back pain; Translations: [Pain in cervical spine] 03-12-2022 Episodic Unclassified (20 sources) Patient encounter status 09-11-2021 Urinary tract infections (1 source) Acute cystitis; Translations: [Acute cystitis without hematuria] 03-01-2024 Episodic Past or Other Problems Problem Classification Problem Date Documented Date Episodic/Chronic Genitourinary symptoms and ill-defined conditions (20 sources) Nocturia; Translations: [Nocturia] Onset: 11-27-2011 11-27-2011 Episodic Other screening for suspected conditions (not mental disorders or infectious disease) (20 sources) Viral screening status; Translations: [Raised prostate specific antigen] Onset: 12-07-2008 03-12-2022 Episodic Residual codes; unclassified (10 sources) Family history of prostate cancer; Translations: [Family history of malignant neoplasm of prostate] Onset: 11-27-2011 11-27-2011 Episodic Residual codes; unclassified (10 sources) Noncompliance with treatment; Translations: [Patient's noncompliance with other medical treatment and regimen] Onset: 12-25-2011 12-25-2011 Episodic Results Test Name Value Interpretation Reference Range Facility CNOVon 06-07-2024 CNOV Office Visit (UROLWS) LAZARO AMANDA ([id number]) 1945 M Date Time Provider Department 06/07/24 9:00 AM TEENA CROCKETT UROLBRY During your visit today, we recorded the following information about you: Temperature Pulse Respiration Blood pressure 97.5 degrees 76/minute 14/minute 126/68 Weight Height 95.7 kg 1.88 m Lana Yarbrough LPN 06/07/2024 9:55 AM Signed Verified name and date of . CC Post Void Residual HPI: Lazaro Amanda is a 78 year old male. The patient is here now for an appointment with JABARI Polo MT, PA-COV. Procedure: Explained procedure to patient and verbalizes understanding. Performed a PVR. Patient urinated and instructed to empty bladder as much as possible just prior to having PVR done using bladder ultrasound scanner. Results of scan: 0 mL The patient tolerated the procedure well. Plan: Appointment with Teena Parrish PA-C 06/07/2024 9:55 AM Signed [facility] EST[facility]LISHED PATIENT CLINIC NOTE Some elements copied from his previous note, which have been updated where appropriate, and all reflect current medical decision making from date of this visit. NAME: Lazaro Amanda CHIEF COMPLAINT: Annual BPH Follow -up and refills HISTORY OF PRESENT ILLNESS: Lazaro Amanda is a 78 year old male established patient following up for Annual BPH Follow -up and refills The patient reports he is doing quite well no new LUTs and medication working well No Longer following PSA Will call office when Rx needs refilled ISO PSA 3% LUTS: Non new LUTs Other symptoms: ED - no LABS: No results found for: HCT PSA (ng/mL) Date Value 05/27/2022 9.07 10/02/2020 8.30 07/15/2017 7.58 06/24/2016 8.01 12/24/2015 8.47 PSA Screening (ng/mL) Date Value 05/28/2023 8.45 No results found for: TESTOST PSA (ng/mL) Date Value 05/27/2022 9.07 10/02/2020 8.30 07/15/2017 7.58 06/24/2016 8.01 12/24/2015 8.47 PSA Screening (ng/mL) Date Value 05/28/2023 8.45 No results found for: CREAT MEDICATIONS: tamsulosin (FLOMAX) 0.4 mg Take 1 capsule by mouth once daily. losartan (COZAAR) 50 mg tablet Take 50 mg by mouth once daily. aspirin 81 mg ORAL chewable tablet Take 1 tablet by mouth once daily. clopidogrel (PLAVIX) 75 mg tablet Take by mouth once daily. atorvastatin (LIPITOR) 80 mg tablet Take by mouth once daily. metoprolol tartrate 25 mg ORAL tablet Take by mouth once daily. sertraline hcl(ZOLOFT 100 MG TAB) Take 100 mg by mouth once daily. iv contrast (will be provided with radiology test) MRI Prostate Inject, intravenously, once for 1 dose. No IV access, insert saline lock prior to the beginning of sedation, infusion, injection of imaging exam. Discontinue saline lock post exam. If Pt. has a central line or IVAD, may access for administration according to line specific nursing protocol. Once exam is complete flush line and de-access according to line specific nursing protocol in the MR contrast administration guidelines link. lisinopril (ZESTRIL, PRINIVIL) 10 mg tablet Take 10 mg by mouth once daily. PAST MEDICAL HISTORY: PAST MEDICAL HISTORY 03/01/2024: Acute cystitis without hematuria No date: Depression No date: Elevated prostate specific antigen (PSA) No date: Essential hypertension 08/13/2010: Heart attack (HCC) No date: History of BPH 06/02/2023: Urinary incontinence, unspecified type REVIEW OF SYSTEMS: GENERAL: No fever, chills, weight loss, or fatigue. All other systems reviewed and are negative PHYSICAL EXAMINATION: Blood pressure 126/68, pulse 76, temperature 36.4 ?C (97.5 ?F), temperature source Temporal, resp. rate 14, height 188 cm (6' 2 ), weight 95.7 kg (211 lb), SpO2 98%. GENERAL: WNL nutrition, no deformities, healthy appearing PROBLEM LIST REVIEW: Yes LABS: Results for orders placed or performed in visit on 03/01/24 UA DIP, URINE (POC) Result Value Ref Range GLUCOSE UA (POCT) Negative Negative mg/dL BILIRUBIN UA (POCT) Negative Negative KETONE UA (POCT) Negative Negative mg/dL SPECIFIC GRAVITY UA (POCT) >=1.030 1.005 - 1.030 HEMOGLOBIN/BLOOD UA (POCT) Trace-intact (A) Negative PH UA (POCT) 6.0 4.5 - 8.0 PROTEIN UA (POCT) Negative Negative mg/dL UROBILINOGEN UA (POCT) 0.2 Normal E.U./dL NITRITE UA (POCT) Negative Negative LEUKOCYTES UA (POCT) Small (A) Negative COLOR UA (POCT) Dark yellow CLARITY UA (POCT) Clear PROCEDURES: PVR: 0 ml IMPRESSION/PLAN: 1. Benign prostatic hyperplasia with urinary frequency - ICD9: 600.01, 788.41, ICD10: N40.1, R35.0 > No longer follows PSA > Refills not due will call Chronic stable, Medication - Renewed > 1 year Appt w/ B. JABARI Crockett MT, PA-C for annual follow-up and refills. JABARI Polo MT, PA-C Mooney, Brandon, PA-C 06/07/ (more content not included)... Normal [facility] UA DIP, URINE (POC)on 2023 BILIRUBIN UA (POCT) Negative Negative [facility] CLARITY UA (POCT) Slightly Cloudy [facility] COLOR UA (POCT) Dark yellow [facility] GLUCOSE UA (POCT) Negative Negative mg/dL [facility] Hemoglobin Ql (U) Small Abnormal Negative [facility] Interpretation and review of laboratory results Abnormal [facility] KETONE UA (POCT) Negative Negative mg/dL [facility] LEUKOCYTES UA (POCT) Trace Abnormal Negative [facility] NITRITE UA (POCT) Negative Negative [facility] PH UA (POCT) 5.5 4.5 - 8.0 [facility] Protein Ql (U) Negative Negative mg/dL [facility] SPECIFIC GRAVITY UA (POCT) >=1.030 1.005 - 1.030 [facility] UROBILINOGEN UA (POCT) 0.2 Normal E.U./dL [facility] Location:[facility], [address] [facility], [place], [place], [id number] [place] [address] POINT OF CARE [facility] CNOVon 03-01-2024 CNOV Office Visit (UROLWS) LAZARO AMANDA ([id number]) 1945 M Date Time Provider Department 03/01/24 2:00 PM TEENA CROCKETT UROLBRY During your visit today, we recorded the following information about you: Blood pressure Weight 102/58 94.6 kg Ceci Oswald MA 03/01/2024 6:50 PM Signed Patient's post-void bladder scan: 3 ML. MADHURI Baird Brandon, PA-C 03/01/2024 6:50 PM Signed [facility] EST[facility] PATIENT CLINIC NOTE Some elements copied from his previous note, which have been updated where appropriate, and all reflect current medical decision making from date of this visit. SERVICE DATE: March 01, 2024 NAME: Lazaro Amanda CHIEF COMPLAINT: Urinary Tract Infection follow-up HISTORY OF PRESENT ILLNESS: Lazaro Amanda is a 78 year old male an established patient following up for Urinary Tract Infection The patient reports he had a week of chills and low grade fever 100.0* had urine culture that showed Klebsiella on 01/19/2024 And new urine culture on 01/28/2024 was negative after full course of Bactrim Doing well now, will keep his annual follow-up for PSA and prostate check LUTS: None LABS: PSA (ng/mL) Date Value 05/27/2022 9.07 10/02/2020 8.30 07/15/2017 7.58 06/24/2016 8.01 PSA Screening (ng/mL) Date Value 05/28/2023 8.45 No results found for: CREAT No results found for: TESTOST No results found for: HCT PSA (ng/mL) Date Value 05/27/2022 9.07 10/02/2020 8.30 07/15/2017 7.58 06/24/2016 8.01 PSA Screening (ng/mL) Date Value 05/28/2023 8.45 MEDICATIONS: tamsulosin (FLOMAX) 0.4 mg Take 1 capsule by mouth once daily. losartan (COZAAR) 50 mg tablet Take 50 mg by mouth once daily. iv contrast (will be provided with radiology test) MRI Prostate Inject, intravenously, once for 1 dose. No IV access, insert saline lock prior to the beginning of sedation, infusion, injection of imaging exam. Discontinue saline lock post exam. If Pt. has a central line or IVAD, may access for administration according to line specific nursing protocol. Once exam is complete flush line and de-access according to line specific nursing protocol in the MR contrast administration guidelines link. aspirin 81 mg ORAL chewable tablet Take 1 tablet by mouth once daily. clopidogrel (PLAVIX) 75 mg tablet take one tablet daily atorvastatin (LIPITOR) 80 mg tablet take one tablet daily metoprolol tartrate 25 mg ORAL tablet take one tablet twice daily sertraline hcl(ZOLOFT 100 MG TAB) Take one(1) tablet daily. lisinopril (ZESTRIL, PRINIVIL) 10 mg tablet Take 10 mg by mouth once daily. PAST MEDICAL HISTORY: PAST MEDICAL HISTORY Diagnosis Date Depression Elevated prostate specific antigen (PSA) Essential hypertension Heart attack (HCC) 08/13/2010 History of BPH PAST SURGICAL HISTORY: PAST SURGICAL HISTORY Procedure Laterality Date PAST SURGICAL HISTORY OF Right 12/01/2023 knee replacement PAST SURGICAL HISTORY OF rotator cuff repair PAST SURGICAL HISTORY OF Left 2019 Total knee replacement STENT PLACEMENT three stents/cardiac REVIEW OF SYSTEMS: GENERAL: No fever, chills, weight loss, or fatigue. All other systems reviewed and are negative PHYSICAL EXAMINATION: Blood pressure 102/58, weight 94.6 kg (208 lb 9.6 oz), SpO2 96%. GENERAL: WNL nutrition, no deformities, healthy appearing PROBLEM LIST REVIEW: Yes LABS: Results for orders placed or performed in visit on 03/01/24 UA DIP, URINE (POC) Result Value Ref Range GLUCOSE UA (POCT) Negative Negative mg/dL BILIRUBIN UA (POCT) Negative Negative KETONE UA (POCT) Negative Negative mg/dL SPECIFIC GRAVITY UA (POCT) >=1.030 1.005 - 1.030 HEMOGLOBIN/BLOOD UA (POCT) Trace-intact (A) Negative PH UA (POCT) 6.0 4.5 - 8.0 PROTEIN UA (POCT) Negative Negative mg/dL UROBILINOGEN UA (POCT) 0.2 Normal E.U./dL NITRITE UA (POCT) Negative Negative LEUKOCYTES UA (POCT) Small (A) Negative COLOR UA (POCT) Dark yellow CLARITY UA (POCT) Clear Urine Culture - 01/28/2024 - No Growth PROCEDURES: PVR - 3 ml IMPRESSION/PLAN: 78 year old male with 1. Acute cystitis without hematuria - ICD9: 595.0, ICD10: N30.00 (primary diagnosis) 2. Elevated prostate specific antigen (PSA) - ICD9: 790.93, ICD10: R97.20 > Acute Condition: Resolved needs monitored with labs and follow-up visits > Chronic Conditions: Stable and monitored with labs and follow-up visits > Continue with follow-up in May as planned JABARI Polo, [place], PA-C Allergies As of Date: 03/01/2024 Noted Allergy Reaction FLUOROURACIL 08/18/2019 2 - Rash SOLARAZE (DICLOFENAC SODIUM) 07/23/2017 7 - Swelling Comments: topical Date Reviewed: 03/01/2024 Reviewed by: Ceci Oswald MA - Fully Assessed Reason for Visit: Follow Up [171] UTI [116] Elevated PSA [3 (more content not included)... Normal [facility] UA DIP, URINE (POC)on 2023 BILIRUBIN UA (POCT) Negative Negative [facility] CLARITY UA (POCT) Clear [facility] COLOR UA (POCT) Dark yellow [facility] GLUCOSE UA (POCT) Negative Negative mg/dL [facility] Hemoglobin Ql (U) Trace-intact Abnormal Negative [facility] Interpretation and review of laboratory results Abnormal [facility] KETONE UA (POCT) Negative Negative mg/dL [facility] LEUKOCYTES UA (POCT) Small Abnormal Negative [facility] NITRITE UA (POCT) Negative Negative [facility] PH UA (POCT) 6.0 4.5 - 8.0 [facility] Protein Ql (U) Negative Negative mg/dL [facility] SPECIFIC GRAVITY UA (POCT) >=1.030 1.005 - 1.030 [facility] UROBILINOGEN UA (POCT) 0.2 Normal E.U./dL [facility] Location:[facility], [address], [place], [place], [address] [place] [address] POINT OF CARE [facility] No Panel Informationon 01-27 Culture Urine No growth at 48 hours. [facility] CEFTRIAXONE:SUSC:PT:ISOLATE: ORDQN:MICon 01-19-2024 cefTRIAXone CURTIS [Susc] >100,000 cfu/ml Klebsiella oxytoca Raoultella ornithinolytica [facility] cefTRIAXone CURTIS [Susc]on Klebsiella oxytoca Raoultella ornithinolytica Klebsiella oxytoca Raoultella ornithinolytica [facility] .Auto Diffon 12-03-2023 Basophil, Absolute 0.0 10 3/mcL Normal 0.0-0.2 [facility] ([place]) Comment on above: Performed By: #### M G, TSH, CBC, CMP, ANEU, VIDH, GFR, ADIFF #### [facility] [address] [place], [place] [address] #### B12 #### [address] [address] Basophils/100 WBC (Bld) 0.3 % Normal 0.0-2.5 [facility] ([place]) Comment on above: Performed By: #### M G, TSH, CBC, CMP, ANEU, VIDH, GFR, ADIFF #### [address] [address] #### B12 #### [address] [address] Eosinophil, Absolute 0.0 10 3/mcL Normal 0.0-0.4 [facility] ([place]) Comment on above: Performed By: #### M G, TSH, CBC, CMP, ANEU, VIDH, GFR, ADIFF #### [address] [address] #### B12 #### [address] [address] Eosinophils/100 WBC (Bld) 0.5 % Normal 0.0-7.0 [facility] ([place]) Comment on above: Performed By: #### M G, TSH, CBC, CMP, ANEU, VIDH, GFR, ADIFF #### [address] [address] #### B12 #### [address] [address] Lymphocyte, Absolute 2.3 10 3/mcL Normal 0.8-3.9 [facility] ([place]) Comment on above: Performed By: #### M G, TSH, CBC, CMP, ANEU, VIDH, GFR, ADIFF #### [address] [address] #### B12 #### [address] [address] Lymphocytes/100 WBC (Bld) 26.2 % Normal 10.0-50.0 [facility] ([place]) Comment on above: Performed By: #### M G, TSH, CBC, CMP, ANEU, VIDH, GFR, ADIFF #### [place] [address] #### B12 #### [address] [address] Monocyte, Absolute 0.7 10 3/mcL Normal 0.2-1.0 [facility] ([place]) Comment on above: Performed By: #### M G, TSH, CBC, CMP, ANEU, VIDH, GFR, ADIFF #### [address] [address] #### B12 #### [address] [address] Monocytes/100 WBC (Bld) 8.4 % Normal 1.7-13.0 [facility] ([place]) Comment on above: Performed By: #### M G, TSH, CBC, CMP, ANEU, VIDH, GFR, ADIFF #### [address] [address] #### B12 #### [address] [address] Neutrophils/100 WBC (Bld) 64.6 % Normal 37.0-80.0 [facility] ([place]) Comment on above: Performed By: #### M G, TSH, CBC, CMP, ANEU, VIDH, GFR, ADIFF #### [address] [address] #### B12 #### [address] [address] .GFRon 12-03-2023 GFR 63 ml/min/1.73sqm Normal [facility] ([place]) Comment on above: Result Comment: GFR Population mean for , Non- Americans Ages 20-29 = 116 mL/min/1.73 sq.m. Ages 30-39 = 107 mL/min/1.73 sq.m. Ages 40-49 = 99 mL/min/1.73 sq.m. Ages 50-59 = 93 mL/min/1.73 sq.m. Ages 60-69 = 85 mL/min/1.73 sq.m. Ages 70+ = 75 mL/min/1.73 sq.m. Chronic Kidney Disease: Less than 60 mL/min/1.73 square meters End Stage Renal Disease: Less than 15 mL/min/1.73 square meters Performed By: #### M G, TSH, CBC, CMP, ANEU, VIDH, GFR, ADIFF #### [address] [address] #### B12 #### [address] [address] GFR Non- 52 ml/min/1.73sqm Normal [facility] ([place]) Comment on above: Result Comment: GFR Population mean for , Non- Americans Ages 20-29 = 116 mL/min/1.73 sq.m. Ages 30-39 = 107 mL/min/1.73 sq.m. Ages 40-49 = 99 mL/min/1.73 sq.m. Ages 50-59 = 93 mL/min/1.73 sq.m. Ages 60-69 = 85 mL/min/1.73 sq.m. Ages 70+ = 75 mL/min/1.73 sq.m. Chronic Kidney Disease: Less than 60 mL/min/1.73 square meters End Stage Renal Disease: Less than 15 mL/min/1.73 square meters Performed By: #### M G, TSH, CBC, CMP, ANEU, VIDH, GFR, ADIFF #### [address] [address] #### B12 #### [address] [address] .NEUABSon 12-03-2023 Neutrophil, Absolute 5.6 10 3/mcL Normal 2.9-6.2 [facility] ([place]) Comment on above: Performed By: #### M G, TSH, CBC, CMP, ANEU, VIDH, GFR, ADIFF #### [address] [address] #### B12 #### [address] [address] BMPon 12-03-2023 BUN/Creatinine Ratio 22 ratio Normal 7-27 [facility] ([place]) Comment on above: Performed By: #### M G, TSH, CBC, CMP, ANEU, VIDH, GFR, ADIFF #### [address] [address] #### B12 #### [address] [address] Calcium [Mass/Vol] 8.7 mg/dL Normal 8.4-10.2 [facility] ([place]) Comment on above: Performed By: #### M G, TSH, CBC, CMP, ANEU, VIDH, GFR, ADIFF #### [place] [address] #### B12 #### [address] [address] Chloride [Moles/Vol] 107 mmol/L Normal 98-107 [facility] ([place]) Comment on above: Performed By: #### M G, TSH, CBC, CMP, ANEU, VIDH, GFR, ADIFF #### [place] [address] #### B12 #### [address] [address] CO2 [Moles/Vol] 27 mmol/L Normal 23-31 [facility] ([place]) Comment on above: Performed By: #### M G, TSH, CBC, CMP, ANEU, VIDH, GFR, ADIFF #### [place] [address] #### B12 #### [address] [address] Creatinine [Mass/Vol] 1.33 mg/dL High 0.70-1.30 [facility] ([place]) Comment on above: Performed By: #### M G, TSH, CBC, CMP, ANEU, VIDH, GFR, ADIFF #### [place] [address] #### B12 #### [address] [address] Electrolyte Balance 7.0 mEq/L Normal 4.0-15.0 [facility] ([place]) Comment on above: Performed By: #### M G, TSH, CBC, CMP, ANEU, VIDH, GFR, ADIFF #### [place] [address] #### B12 #### [address] [address] Glucose [Mass/Vol] 115 mg/dL High 83-110 [facility] ([place]) Comment on above: Performed By: #### M G, TSH, CBC, CMP, ANEU, VIDH, GFR, ADIFF #### [address] [address] #### B12 #### [address] [address] Potassium [Moles/Vol] 4.4 mmol/L Normal 3.5-5.1 [facility] ([place]) Comment on above: Performed By: #### M G, TSH, CBC, CMP, ANEU, VIDH, GFR, ADIFF #### [place] [address] #### B12 #### [address] [address] Sodium [Moles/Vol] 141 mmol/L Normal 136-145 [facility] ([place]) Comment on above: Performed By: #### M G, TSH, CBC, CMP, ANEU, VIDH, GFR, ADIFF #### [place] [address] #### B12 #### [address] [address] Urea nitrogen [Mass/Vol] 29 mg/dL High 7-18 [facility] ([place]) Comment on above: Performed By: #### M G, TSH, CBC, CMP, ANEU, VIDH, GFR, ADIFF #### [place] [address] #### B12 #### [address] [address] CBCon 12-03-2023 Erythrocyte distribution width (RBC) [Ratio] 13.6 % Normal 11.5-14.5 [facility] ([place]) Comment on above: Performed By: #### A KIRSTIE, BMP, CBC, GFR, ADIFF #### [place] [address] Hematocrit (Bld) [Volume fraction] 28.0 % Low 42.0-52.0 [facility] ([place]) Comment on above: Performed By: #### A KIRSTIE, BMP, CBC, GFR, ADIFF #### [address] [address] MCH (RBC) [Entitic mass] 34.1 pg High 27.0-31.2 [facility] ([place]) Comment on above: Performed By: #### A KIRSTIE, BMP, CBC, GFR, ADIFF #### [address] [address] MCV (RBC) [Entitic vol] 95.0 fL High 80.0-94.0 [facility] ([place]) Comment on above: Performed By: #### A KIRSTIE, BMP, CBC, GFR, ADIFF #### [address] [address] Platelet 152 10 3/mcL Normal 130-400 [facility] ([place]) Comment on above: Performed By: #### A KIRSTIE, BMP, CBC, GFR, ADIFF #### [address] [address] Platelet mean volume (Bld) [Entitic vol] 7.5 fL Normal 7.4-10.4 [facility] ([place]) Comment on above: Performed By: #### A KIRSTIE, BMP, CBC, GFR, ADIFF #### [address] [address] RBC 2.94 10 6/mcL Low 4.04-6.13 [facility] ([place]) Comment on above: Performed By: #### A KIRSTIE, BMP, CBC, GFR, ADIFF #### [address] [address] WBC 8.8 10 3/mcL Normal 4.6-10.8 [facility] ([place]) Comment on above: Performed By: #### A KIRSTIE, BMP, CBC, GFR, ADIFF #### [address] [address] Hgb 10.0 G/dL Low 14.0-18.0 [facility] ([place]) Comment on above: Performed By: #### A KIRSTIE, BMP, CBC, GFR, ADIFF #### [place] [address] [place], [place] [address] MCHC 36.6 G/dL High 31.8-35.4 [facility] ([place]) Comment on above: Performed By: #### A KIRSTIE, BMP, CBC, GFR, ADIFF #### [place] [address] [place], [place] [address] LABORATORYOrdered By: SYSTEM SYSTEM on 12-03-2023 Basophil, Absolute 0.0 103/mcL Normal 0.0 - 0.2 10^3/mcL AO Workflow SS Basophils/100 WBC (Bld) 0.3 % Normal 0.0 - 2.5 % AO Workflow SS Calcium [Mass/Vol] 8.7 mg/dL Normal 8.4 - 10. 2 mg/dL AO ADM SS Chloride [Moles/Vol] 107 mmol/L Normal 98 - 10 7 mmol/L AO ADM SS CO2 [Moles/Vol] 27 mmol/L Normal 23 - 31 mmol/L AO ADM SS Creatinine [Mass/Vol] 1.33 mg/dL High 0.70 - 1.30 mg/dL AO ADM SS Electrolyte Balance 7.0 mEq/L Normal 4.0 - 15 .0 mEq/L AO ADM SS Eosinophil, Absolute 0.0 103/mcL Normal 0.0 - 0 .4 10^3/mcL AO Workflow SS Eosinophils/100 WBC (Bld) 0.5 % Normal 0.0 - 7.0 % AO Workflow SS Erythrocyte distribution width (RBC) [Ratio] 13.6 % Normal 11.5 - 14.5 % AO Workflow SS GFR/1.73 sq M.predicted among blacks MDRD (S/P/Bld) [Vol rate/Area] 63 ml/min/1.73sqm Invalid Interpretation Code AO Chemistry S Comment on above: Interpretive Data: GFR Population mean for , Non- Americans Ages 20-29 = 116 mL/min/1.73 sq.m. Ages 30-39 = 107 mL/min/1.73 sq.m. Ages 40-49 = 99 mL/min/1.73 sq.m. Ages 50-59 = 93 mL/min/1.73 sq.m. Ages 60-69 = 85 mL/min/1.73 sq.m. Ages 70+ = 75 mL/min/1.73 sq.m. Chronic Kidney Disease: Less than 60 mL/min/1.73 square meters End Stage Renal Disease: Less than 15 mL/min/1.73 square meters GFR/1.73 sq M.predicted among non-blacks MDRD (S/P/Bld) [Vol rate/Area] 52 ml/min/1.73sqm Invalid Interpretation Code AO Chemistry S Comment on above: Interpretive Data: GFR Population mean for , Non- Americans Ages 20-29 = 116 mL/min/1.73 sq.m. Ages 30-39 = 107 mL/min/1.73 sq.m. Ages 40-49 = 99 mL/min/1.73 sq.m. Ages 50-59 = 93 mL/min/1.73 sq.m. Ages 60-69 = 85 mL/min/1.73 sq.m. Ages 70+ = 75 mL/min/1.73 sq.m. Chronic Kidney Disease: Less than 60 mL/min/1.73 square meters End Stage Renal Disease: Less than 15 mL/min/1.73 square meters Glucose [Mass/Vol] 115 mg/dL High 83 - 110 mg/dL AO ADM SS Hematocrit (Bld) [Volume fraction] 28.0 % Low 42.0 - 52.0 % AO Workflow SS Hemoglobin (Bld) [Mass/Vol] 10.0 G/dL Low 14.0 - 18.0 G/dL AO Workflow SS Lymphocyte, Absolute 2.3 103/mcL Normal 0.8 - 3 .9 10^3/mcL AO Workflow SS Lymphocytes/100 WBC (Bld) 26.2 % Normal 10.0 - 50.0 % AO Workflow SS MCH (RBC) [Entitic mass] 34.1 pg High 27.0 - 31.2 pg AO Workflow SS MCHC 36.6 G/dL High 31.8 - 35.4 G/dL AO Workflow SS MCV (RBC) [Entitic vol] 95.0 fL High 80.0 - 94.0 fL AO Workflow SS Monocyte, Absolute 0.7 103/mcL Normal 0.2 - 1.0 10^3/mcL AO Workflow SS Monocytes/100 WBC (Bld) 8.4 % Normal 1.7 - 13.0 % AO Workflow SS Neutrophil, Absolute 5.6 103/mcL Normal 2.9 - 6 .2 10^3/mcL AO Workflow SS Neutrophils/100 WBC (Bld) 64.6 % Normal 37.0 - 80.0 % AO Workflow SS Platelet mean volume (Bld) [Entitic vol] 7.5 fL Normal 7.4 - 10.4 fL AO Workflow SS Platelets (Bld) [#/Vol] 152 103/mcL Normal 130 - 400 10^3/mcL AO Workflow SS Potassium [Moles/Vol] 4.4 mmol/L Normal 3.5 - 5.1 mmol/L AO ADM SS RBC (Bld) [#/Vol] 2.94 106/mcL Low 4.04 - 6.1 3 10^6/mcL AO Workflow SS Sodium [Moles/Vol] 141 mmol/L Normal 136 - 145 mmol/L AO ADM SS Urea nitrogen [Mass/Vol] 29 mg/dL High 7 - 18 mg/dL AO ADM SS Urea nitrogen/Creatinine [Mass ratio] 22 ratio Normal 7 - 27 ratio AO ADM SS WBC (Bld) [#/Vol] 8.8 103/mcL Normal 4.6 - 10.8 10^3/mcL AO Workflow SS .Auto Diffon 12-02-2023 Basophil, Absolute 0.0 10 3/mcL Normal 0.0-0.2 [facility] ([place]) Comment on above: Performed By: #### M G, TSH, CBC, CMP, ANEU, VIDH, GFR, ADIFF #### [address] [address] #### B12 #### [address] [address] Basophils/100 WBC (Bld) 0.1 % Normal 0.0-2.5 [facility] ([place]) Comment on above: Performed By: #### M G, TSH, CBC, CMP, ANEU, VIDH, GFR, ADIFF #### [address] [address] #### B12 #### [address] [address] Eosinophil, Absolute 0.0 10 3/mcL Normal 0.0-0.4 [facility] ([place]) Comment on above: Performed By: #### M G, TSH, CBC, CMP, ANEU, VIDH, GFR, ADIFF #### [address] [address] #### B12 #### [address] [address] Eosinophils/100 WBC (Bld) 0.0 % Normal 0.0-7.0 [facility] ([place]) Comment on above: Performed By: #### M G, TSH, CBC, CMP, ANEU, VIDH, GFR, ADIFF #### [address] [address] #### B12 #### [address] [address] Lymphocyte, Absolute 0.9 10 3/mcL Normal 0.8-3.9 [facility] ([place]) Comment on above: Performed By: #### M G, TSH, CBC, CMP, ANEU, VIDH, GFR, ADIFF #### [address] [address] #### B12 #### [address] [address] Lymphocytes/100 WBC (Bld) 6.7 % Low 10.0-50.0 [facility] ([place]) Comment on above: Performed By: #### M G, TSH, CBC, CMP, ANEU, VIDH, GFR, ADIFF #### [address] [address] #### B12 #### [address] [address] Monocyte, Absolute 0.8 10 3/mcL Normal 0.2-1.0 [facility] ([place]) Comment on above: Performed By: #### M G, TSH, CBC, CMP, ANEU, VIDH, GFR, ADIFF #### [address] [address] #### B12 #### [address] [address] Monocytes/100 WBC (Bld) 6.2 % Normal 1.7-13.0 [facility] ([place]) Comment on above: Performed By: #### M G, TSH, CBC, CMP, ANEU, VIDH, GFR, ADIFF #### [address] [address] #### B12 #### [address] [address] Neutrophils/100 WBC (Bld) 87.0 % High 37.0-80.0 [facility] ([place]) Comment on above: Performed By: #### M G, TSH, CBC, CMP, ANEU, VIDH, GFR, ADIFF #### [address] [address] #### B12 #### [address] [address] .GFRon 12-02-2023 GFR 61 ml/min/1.73sqm Normal [facility] ([place]) Comment on above: Result Comment: GFR Population mean for , Non- Americans Ages 20-29 = 116 mL/min/1.73 sq.m. Ages 30-39 = 107 mL/min/1.73 sq.m. Ages 40-49 = 99 mL/min/1.73 sq.m. Ages 50-59 = 93 mL/min/1.73 sq.m. Ages 60-69 = 85 mL/min/1.73 sq.m. Ages 70+ = 75 mL/min/1.73 sq.m. Chronic Kidney Disease: Less than 60 mL/min/1.73 square meters End Stage Renal Disease: Less than 15 mL/min/1.73 square meters Performed By: #### M G, TSH, CBC, CMP, ANEU, VIDH, GFR, ADIFF #### [address] [address] #### B12 #### [address] [address] GFR Non- 50 ml/min/1.73sqm Normal [facility] ([place]) Comment on above: Result Comment: GFR Population mean for , Non- Americans Ages 20-29 = 116 mL/min/1.73 sq.m. Ages 30-39 = 107 mL/min/1.73 sq.m. Ages 40-49 = 99 mL/min/1.73 sq.m. Ages 50-59 = 93 mL/min/1.73 sq.m. Ages 60-69 = 85 mL/min/1.73 sq.m. Ages 70+ = 75 mL/min/1.73 sq.m. Chronic Kidney Disease: Less than 60 mL/min/1.73 square meters End Stage Renal Disease: Less than 15 mL/min/1.73 square meters Performed By: #### M G, TSH, CBC, CMP, ANEU, VIDH, GFR, ADIFF #### [address] [address] #### B12 #### [address] [address] .NEUABSon 12-02-2023 Neutrophil, Absolute 11.1 10 3/mcL High 2.9-6.2 [facility] ([place]) Comment on above: Performed By: #### M G, TSH, CBC, CMP, ANEU, VIDH, GFR, ADIFF #### [address] [address] #### B12 #### [address] [address] BMPon 12-02-2023 BUN/Creatinine Ratio 19 ratio Normal 7-27 [facility] ([place]) Comment on above: Performed By: #### M G, TSH, CBC, CMP, ANEU, VIDH, GFR, ADIFF #### [address] [address] #### B12 #### [address] [address] Calcium [Mass/Vol] 8.8 mg/dL Normal 8.4-10.2 [facility] ([place]) Comment on above: Performed By: #### M G, TSH, CBC, CMP, ANEU, VIDH, GFR, ADIFF #### [place] [address] #### B12 #### [address] [address] Chloride [Moles/Vol] 102 mmol/L Normal 98-107 [facility] ([place]) Comment on above: Performed By: #### M G, TSH, CBC, CMP, ANEU, VIDH, GFR, ADIFF #### [address] [address] #### B12 #### [address] [address] CO2 [Moles/Vol] 26 mmol/L Normal 23-31 [facility] ([place]) Comment on above: Performed By: #### M G, TSH, CBC, CMP, ANEU, VIDH, GFR, ADIFF #### [address] [address] #### B12 #### [address] [address] Creatinine [Mass/Vol] 1.37 mg/dL High 0.70-1.30 [facility] ([place]) Comment on above: Performed By: #### M G, TSH, CBC, CMP, ANEU, VIDH, GFR, ADIFF #### [address] [address] #### B12 #### [address] [address] Electrolyte Balance 10.0 mEq/L Normal 4.0-15.0 [facility] ([place]) Comment on above: Performed By: #### M G, TSH, CBC, CMP, ANEU, VIDH, GFR, ADIFF #### [address] [address] #### B12 #### [address] [address] Glucose [Mass/Vol] 162 mg/dL High 83-110 [facility] ([place]) Comment on above: Performed By: #### M G, TSH, CBC, CMP, ANEU, VIDH, GFR, ADIFF #### [address] [address] #### B12 #### [address] [address] Potassium [Moles/Vol] 4.2 mmol/L Normal 3.5-5.1 [facility] ([place]) Comment on above: Performed By: #### M G, TSH, CBC, CMP, ANEU, VIDH, GFR, ADIFF #### [address] [address] #### B12 #### [address] [address] Sodium [Moles/Vol] 138 mmol/L Normal 136-145 [facility] ([place]) Comment on above: Performed By: #### M G, TSH, CBC, CMP, ANEU, VIDH, GFR, ADIFF #### [place] [address] #### B12 #### [address] [address] Urea nitrogen [Mass/Vol] 26 mg/dL High 7-18 [facility] ([place]) Comment on above: Performed By: #### M G, TSH, CBC, CMP, ANEU, VIDH, GFR, ADIFF #### [place] [address] #### B12 #### [address] 12-02-[address] Erythrocyte distribution width (RBC) [Ratio] 13.3 % Normal 11.5-14.5 [facility] ([place]) Comment on above: Performed By: #### M G, TSH, CBC, CMP, ANEU, VIDH, GFR, ADIFF #### [place] [address] #### B12 #### [address] [address] Hematocrit (Bld) [Volume fraction] 33.8 % Low 42.0-52.0 [facility] ([place]) Comment on above: Performed By: #### M G, TSH, CBC, CMP, ANEU, VIDH, GFR, ADIFF #### [place] [address] #### B12 #### [place] [address] Hgb 12.0 G/dL Low 14.0-18.0 [facility] ([place]) Comment on above: Performed By: #### M G, TSH, CBC, CMP, ANEU, VIDH, GFR, ADIFF #### [place] [address] #### B12 #### [place] [address] MCH (RBC) [Entitic mass] 33.4 pg High 27.0-31.2 [facility] ([place]) Comment on above: Performed By: #### M G, TSH, CBC, CMP, ANEU, VIDH, GFR, ADIFF #### [place] [address] #### B12 #### [place] [address] MCHC 35.5 G/dL High 31.8-35.4 [facility] ([place]) Comment on above: Performed By: #### M G, TSH, CBC, CMP, ANEU, VIDH, GFR, ADIFF #### [place] [address] #### B12 #### [place] [address] MCV (RBC) [Entitic vol] 93.9 fL Normal 80.0-94.0 [facility] ([place]) Comment on above: Performed By: #### M G, TSH, CBC, CMP, ANEU, VIDH, GFR, ADIFF #### [place] [address] #### B12 #### [place] [address] Platelet 176 10 3/mcL Normal 130-400 [facility] ([place]) Comment on above: Performed By: #### M G, TSH, CBC, CMP, ANEU, VIDH, GFR, ADIFF #### [place] [address] #### B12 #### [address] [address] Platelet mean volume (Bld) [Entitic vol] 8.0 fL Normal 7.4-10.4 [facility] ([place]) Comment on above: Performed By: #### M G, TSH, CBC, CMP, ANEU, VIDH, GFR, ADIFF #### [address] [address] #### B12 #### [place] [address] RBC 3.60 10 6/mcL Low 4.04-6.13 [facility] ([place]) Comment on above: Performed By: #### M G, TSH, CBC, CMP, ANEU, VIDH, GFR, ADIFF #### [address] [address] #### B12 #### [place] [address] WBC 12.7 10 3/mcL High 4.6-10.8 [facility] ([place]) Comment on above: Performed By: #### M G, TSH, CBC, CMP, ANEU, VIDH, GFR, ADIFF #### [place] [address] #### B12 #### [place] [address] LABORATORYOrdered By: SYSTEM SYSTEM on 12-02-2023 Basophil, Absolute 0.0 103/mcL Normal 0.0 - 0.2 10^3/mcL AO Workflow SS Basophils/100 WBC (Bld) 0.1 % Normal 0.0 - 2.5 % AO Workflow SS Calcium [Mass/Vol] 8.8 mg/dL Normal 8.4 - 10. 2 mg/dL AO ADM SS Chloride [Moles/Vol] 102 mmol/L Normal 98 - 10 7 mmol/L AO ADM SS CO2 [Moles/Vol] 26 mmol/L Normal 23 - 31 mmol/L AO ADM SS Creatinine [Mass/Vol] 1.37 mg/dL High 0.70 - 1.30 mg/dL AO ADM SS Electrolyte Balance 10.0 mEq/L Normal 4.0 - 15 .0 mEq/L AO ADM SS Eosinophil, Absolute 0.0 103/mcL Normal 0.0 - 0 .4 10^3/mcL AO Workflow SS Eosinophils/100 WBC (Bld) 0.0 % Normal 0.0 - 7.0 % AO Workflow SS Erythrocyte distribution width (RBC) [Ratio] 13.3 % Normal 11.5 - 14.5 % AO Workflow SS GFR/1.73 sq M.predicted among blacks MDRD (S/P/Bld) [Vol rate/Area] 61 ml/min/1.73sqm Invalid Interpretation Code AO Chemistry S Comment on above: Interpretive Data: GFR Population mean for , Non- Americans Ages 20-29 = 116 mL/min/1.73 sq.m. Ages 30-39 = 107 mL/min/1.73 sq.m. Ages 40-49 = 99 mL/min/1.73 sq.m. Ages 50-59 = 93 mL/min/1.73 sq.m. Ages 60-69 = 85 mL/min/1.73 sq.m. Ages 70+ = 75 mL/min/1.73 sq.m. Chronic Kidney Disease: Less than 60 mL/min/1.73 square meters End Stage Renal Disease: Less than 15 mL/min/1.73 square meters GFR/1.73 sq M.predicted among non-blacks MDRD (S/P/Bld) [Vol rate/Area] 50 ml/min/1.73sqm Invalid Interpretation Code AO Chemistry S Comment on above: Interpretive Data: GFR Population mean for , Non- Americans Ages 20-29 = 116 mL/min/1.73 sq.m. Ages 30-39 = 107 mL/min/1.73 sq.m. Ages 40-49 = 99 mL/min/1.73 sq.m. Ages 50-59 = 93 mL/min/1.73 sq.m. Ages 60-69 = 85 mL/min/1.73 sq.m. Ages 70+ = 75 mL/min/1.73 sq.m. Chronic Kidney Disease: Less than 60 mL/min/1.73 square meters End Stage Renal Disease: Less than 15 mL/min/1.73 square meters Glucose [Mass/Vol] 162 mg/dL High 83 - 110 mg/dL AO ADM SS Hematocrit (Bld) [Volume fraction] 33.8 % Low 42.0 - 52.0 % AO Workflow SS Hemoglobin (Bld) [Mass/Vol] 12.0 G/dL Low 14.0 - 18.0 G/dL AO Workflow SS Lymphocyte, Absolute 0.9 103/mcL Normal 0.8 - 3 .9 10^3/mcL AO Workflow SS Lymphocytes/100 WBC (Bld) 6.7 % Low 10.0 - 50.0 % AO Workflow SS MCH (RBC) [Entitic mass] 33.4 pg High 27.0 - 31.2 pg AO Workflow SS MCHC 35.5 G/dL High 31.8 - 35.4 G/dL AO Workflow SS MCV (RBC) [Entitic vol] 93.9 fL Normal 80.0 - 94.0 fL AO Workflow SS Monocyte, Absolute 0.8 103/mcL Normal 0.2 - 1.0 10^3/mcL AO Workflow SS Monocytes/100 WBC (Bld) 6.2 % Normal 1.7 - 13.0 % AO Workflow SS Neutrophil, Absolute 11.1 103/mcL High 2.9 - 6 .2 10^3/mcL AO Workflow SS Neutrophils/100 WBC (Bld) 87.0 % High 37.0 - 80.0 % AO Workflow SS Platelet mean volume (Bld) [Entitic vol] 8.0 fL Normal 7.4 - 10.4 fL AO Workflow SS Platelets (Bld) [#/Vol] 176 103/mcL Normal 130 - 400 10^3/mcL AO Workflow SS Potassium [Moles/Vol] 4.2 mmol/L Normal 3.5 - 5.1 mmol/L AO ADM SS RBC (Bld) [#/Vol] 3.60 106/mcL Low 4.04 - 6.1 3 10^6/mcL AO Workflow SS Sodium [Moles/Vol] 138 mmol/L Normal 136 - 145 mmol/L AO ADM SS Urea nitrogen [Mass/Vol] 26 mg/dL High 7 - 18 mg/dL AO ADM SS Urea nitrogen/Creatinine [Mass ratio] 19 ratio Normal 7 - 27 ratio AO ADM SS WBC (Bld) [#/Vol] 12.7 103/mcL High 4.6 - 10.8 10^3/mcL AO Workflow SS Gel ABOon 12-01-2023 ABO/Rh Interp Positive Invalid Interpretation Code [facility] ([place]) Comment on above: Performed By: #### M G, TSH, CBC, CMP, ANEU, VIDH, GFR, ADIFF #### [address] [place], [place] [address] #### B12 #### [address] [address] Gel ABSon 12-01-2023 Antibody Screen Gel Negative Normal [facility] ([place]) Comment on above: Performed By: #### M G, TSH, CBC, CMP, ANEU, VIDH, GFR, ADIFF #### [address] [place], [place] [address] #### B12 #### [facility] [address] [place] [id number] LABORATORYOrdered By: Mary Beth Teague on 12-01-2023 ABO/Rh Interp Positive Invalid Interpretation Code AO BB SS Antibody Screen Gel Negative ABSC (12/01/23 9:19 AM) Normal AO BB SS No Panel Informationon 12-01 GS 2+ White Blood Cells No organisms seen. [facility] AFS Acid Fast Smear from Concentrated Specimen: Negative [facility] Culture Tissue No growth to date [facility] [place] FUNSM No fungal elements observed by calcofluor white stain. [facility] GS 1+ White Blood Cells No organisms seen. [facility] XR KNEE 1 OR 2 VIEWS RIGHTon 12-01-2023 XR KNEE 1 OR 2 VIEWS RIGHT ORIGINAL EXAMINATION: TWO XRAY VIEWS OF THE RIGHT KNEE 12/01/2023 1:27 pm COMPARISON: None. HISTORY: ORDERING SYSTEM PROVIDED HISTORY: Reason for Exam: Status Post Arthroplasty FINDINGS: A complete knee prosthesis is identified. The components appear well seated and intact. No acute fracture or dislocation. Gas in the soft tissues is likely postoperative. Surgical shivani overlie the skin anteriorly. Vascular calcifications are shown soft tissues. IMPRESSION: Surgical changes. Interpreted by: Nichelle Olson MD Preliminary Report By: Nichelle Olson MD Electronically signed By Nichelle Olson MD Dictated Date: 12/01/2023 1:36:46 PM Prelim Date: 12/01/2023 1:37:22 PM Sign Date: 12/01/2023 1:37:22 PM Ordering Provider: JUDSON Stanton [facility] ([place]) .Auto Diffon 11-05-2023 Basophil, Absolute 0.0 10 3/mcL Normal 0.0-0.2 [facility] ([place]) Comment on above: Performed By: #### M G, TSH, CBC, CMP, ANEU, VIDH, GFR, ADIFF #### [address] [address] #### B12 #### [address] [address] Basophils/100 WBC (Bld) 0.8 % Normal 0.0-2.5 [facility] ([place]) Comment on above: Performed By: #### M G, TSH, CBC, CMP, ANEU, VIDH, GFR, ADIFF #### [address] [address] #### B12 #### [address] [address] Eosinophil, Absolute 0.1 10 3/mcL Normal 0.0-0.4 [facility] ([place]) Comment on above: Performed By: #### M G, TSH, CBC, CMP, ANEU, VIDH, GFR, ADIFF #### [address] [address] #### B12 #### [address] [address] Eosinophils/100 WBC (Bld) 1.4 % Normal 0.0-7.0 [facility] ([place]) Comment on above: Performed By: #### M G, TSH, CBC, CMP, ANEU, VIDH, GFR, ADIFF #### [address] [address] #### B12 #### [address] [address] Lymphocyte, Absolute 1.6 10 3/mcL Normal 0.8-3.9 [facility] ([place]) Comment on above: Performed By: #### M G, TSH, CBC, CMP, ANEU, VIDH, GFR, ADIFF #### [address] [address] #### B12 #### [address] [address] Lymphocytes/100 WBC (Bld) 30.1 % Normal 10.0-50.0 [facility] ([place]) Comment on above: Performed By: #### M G, TSH, CBC, CMP, ANEU, VIDH, GFR, ADIFF #### [address] [address] #### B12 #### [address] [address] Monocyte, Absolute 0.4 10 3/mcL Normal 0.2-1.0 [facility] ([place]) Comment on above: Performed By: #### M G, TSH, CBC, CMP, ANEU, VIDH, GFR, ADIFF #### [address] [address] #### B12 #### [address] [address] Monocytes/100 WBC (Bld) 8.0 % Normal 1.7-13.0 [facility] ([place]) Comment on above: Performed By: #### M G, TSH, CBC, CMP, ANEU, VIDH, GFR, ADIFF #### [address] [address] #### B12 #### [address] [address] Neutrophils/100 WBC (Bld) 59.7 % Normal 37.0-80.0 [facility] ([place]) Comment on above: Performed By: #### M G, TSH, CBC, CMP, ANEU, VIDH, GFR, ADIFF #### [address] [address] #### B12 #### [address] [address] .GFRon 11-05-2023 GFR 71 ml/min/1.73sqm Normal [facility] ([place]) Comment on above: Result Comment: GFR Population mean for , Non- Americans Ages 20-29 = 116 mL/min/1.73 sq.m. Ages 30-39 = 107 mL/min/1.73 sq.m. Ages 40-49 = 99 mL/min/1.73 sq.m. Ages 50-59 = 93 mL/min/1.73 sq.m. Ages 60-69 = 85 mL/min/1.73 sq.m. Ages 70+ = 75 mL/min/1.73 sq.m. Chronic Kidney Disease: Less than 60 mL/min/1.73 square meters End Stage Renal Disease: Less than 15 mL/min/1.73 square meters Performed By: #### M G, TSH, CBC, CMP, ANEU, VIDH, GFR, ADIFF #### [address] [address] #### B12 #### [place] [address] GFR Non- 59 ml/min/1.73sqm Normal [facility] ([place]) Comment on above: Result Comment: GFR Population mean for , Non- Americans Ages 20-29 = 116 mL/min/1.73 sq.m. Ages 30-39 = 107 mL/min/1.73 sq.m. Ages 40-49 = 99 mL/min/1.73 sq.m. Ages 50-59 = 93 mL/min/1.73 sq.m. Ages 60-69 = 85 mL/min/1.73 sq.m. Ages 70+ = 75 mL/min/1.73 sq.m. Chronic Kidney Disease: Less than 60 mL/min/1.73 square meters End Stage Renal Disease: Less than 15 mL/min/1.73 square meters Performed By: #### M G, TSH, CBC, CMP, ANEU, VIDH, GFR, ADIFF #### [address] [address] #### B12 #### [place] [id number] .NEUABSon 11-05-2023 Neutrophil, Absolute 3.1 10 3/mcL Normal 2.9-6.2 [facility] ([place]) Comment on above: Performed By: #### M G, TSH, CBC, CMP, ANEU, VIDH, GFR, ADIFF #### [address] [address] #### B12 #### [address] [address] ALBon 11-05-2023 Albumin Level 3.8 G/dL Normal 3.4-4.8 [facility] ([place]) Comment on above: Performed By: #### M G, TSH, CBC, CMP, ANEU, VIDH, GFR, ADIFF #### [place] [address] #### B12 #### [id number] [place] [address] 11-05-2023 BUN/Creatinine Ratio 21 ratio Normal 7-27 [facility] ([place]) Comment on above: Performed By: #### M G, TSH, CBC, CMP, ANEU, VIDH, GFR, ADIFF #### [address] [address] #### B12 #### [address] [address] Calcium [Mass/Vol] 9.6 mg/dL Normal 8.4-10.2 [facility] ([place]) Comment on above: Performed By: #### M G, TSH, CBC, CMP, ANEU, VIDH, GFR, ADIFF #### [address] [address] #### B12 #### [address] [address] Chloride [Moles/Vol] 106 mmol/L Normal 98-107 [facility] ([place]) Comment on above: Performed By: #### M G, TSH, CBC, CMP, ANEU, VIDH, GFR, ADIFF #### [place] [address] #### B12 #### [address] [address] CO2 [Moles/Vol] 26 mmol/L Normal 23-31 [facility] ([place]) Comment on above: Performed By: #### M G, TSH, CBC, CMP, ANEU, VIDH, GFR, ADIFF #### [address] [address] #### B12 #### [address] [address] Creatinine [Mass/Vol] 1.20 mg/dL Normal 0.70-1.30 [facility] ([place]) Comment on above: Performed By: #### M G, TSH, CBC, CMP, ANEU, VIDH, GFR, ADIFF #### [address] [address] #### B12 #### [address] [address] Electrolyte Balance 11.0 mEq/L Normal 4.0-15.0 [facility] ([place]) Comment on above: Performed By: #### M G, TSH, CBC, CMP, ANEU, VIDH, GFR, ADIFF #### [address] [address] #### B12 #### [address] [address] Glucose [Mass/Vol] 120 mg/dL High 83-110 [facility] ([place]) Comment on above: Performed By: #### M G, TSH, CBC, CMP, ANEU, VIDH, GFR, ADIFF #### [address] [address] #### B12 #### [address] [address] Potassium [Moles/Vol] 4.2 mmol/L Normal 3.5-5.1 [facility] ([place]) Comment on above: Performed By: #### M G, TSH, CBC, CMP, ANEU, VIDH, GFR, ADIFF #### [address] [address] #### B12 #### [address] [address] Sodium [Moles/Vol] 143 mmol/L Normal 136-145 [facility] ([place]) Comment on above: Performed By: #### M G, TSH, CBC, CMP, ANEU, VIDH, GFR, ADIFF #### [address] [address] #### B12 #### [address] [address] Urea nitrogen [Mass/Vol] 25 mg/dL High 7-18 [facility] ([place]) Comment on above: Performed By: #### M G, TSH, CBC, CMP, ANEU, VIDH, GFR, ADIFF #### [address] [address] #### B12 #### [address] [address] CBCon 11-05-2023 Erythrocyte distribution width (RBC) [Ratio] 14.0 % Normal 11.5-14.5 [facility] ([place]) Comment on above: Order Comment: Pre-A dmission Testing Performed By: #### M G, TSH, CBC, CMP, ANEU, VIDH, GFR, ADIFF #### [address] [address] #### B12 #### [address] [address] Hematocrit (Bld) [Volume fraction] 38.9 % Low 42.0-52.0 [facility] ([place]) Comment on above: Order Comment: Pre-A dmission Testing Performed By: #### M G, TSH, CBC, CMP, ANEU, VIDH, GFR, ADIFF #### [address] [address] #### B12 #### [address] [address] Hgb 13.7 G/dL Low 14.0-18.0 [facility] ([place] Comment on above: Order Comment: Pre-A dmission Testing Performed By: #### M G, TSH, CBC, CMP, ANEU, VIDH, GFR, ADIFF #### [address] [address] #### B12 #### [address] [address] MCH (RBC) [Entitic mass] 33.5 pg High 27.0-31.2 [facility] ([place] Comment on above: Order Comment: Pre-A dmission Testing Performed By: #### M G, TSH, CBC, CMP, ANEU, VIDH, GFR, ADIFF #### [place] [address] #### B12 #### [place] [address] MCHC 35.1 G/dL Normal 31.8-35.4 [facility] ([place] Comment on above: Order Comment: Pre-A dmission Testing Performed By: #### M G, TSH, CBC, CMP, ANEU, VIDH, GFR, ADIFF #### [place] [address] #### B12 #### [place] [address] MCV (RBC) [Entitic vol] 95.3 fL High 80.0-94.0 [facility] ([place] Comment on above: Order Comment: Pre-A dmission Testing Performed By: #### M G, TSH, CBC, CMP, ANEU, VIDH, GFR, ADIFF #### [place] [address] #### B12 #### [place] [address] Platelet 169 10 3/mcL Normal 130-400 [facility] ([place]) Comment on above: Order Comment: Pre-A dmission Testing Performed By: #### M G, TSH, CBC, CMP, ANEU, VIDH, GFR, ADIFF #### [place] [address] #### B12 #### [place] [address] Platelet mean volume (Bld) [Entitic vol] 7.7 fL Normal 7.4-10.4 [facility] ([place] Comment on above: Order Comment: Pre-A dmission Testing Performed By: #### M G, TSH, CBC, CMP, ANEU, VIDH, GFR, ADIFF #### [address] [address] #### B12 #### [address] [address] RBC 4.08 10 6/mcL Normal 4.04-6.13 [facility] ([place]) Comment on above: Order Comment: Pre-A dmission Testing Performed By: #### M G, TSH, CBC, CMP, ANEU, VIDH, GFR, ADIFF #### [address] [address] #### B12 #### [address] [address] WBC 5.2 10 3/mcL Normal 4.6-10.8 [facility] ([place] Comment on above: Order Comment: Pre-A dmission Testing Performed By: #### M G, TSH, CBC, CMP, ANEU, VIDH, GFR, ADIFF #### [address] [address] #### B12 #### [address] [address] [address] KNEE W/O CONTRAST RIGHTon 11-05-2023 CT KNEE W/O CONTRAST RIGHT ORIGINAL EXAMINATION: CT OF THE RIGHT KNEE WITHOUT CONTRAST 11/05/2023 10:43 am TECHNIQUE: CT of the right knee was performed without the administration of intravenous contrast. Multiplanar reformatted images are provided for review. Automated exposure control, iterative reconstruction, and/or weight based adjustment of the mA/kV was utilized to reduce the radiation dose to as low as reasonably achievable. COMPARISON: MR knee 08/11/2023 HISTORY ORDERING SYSTEM PROVIDED HISTORY: Reason for Exam: Unilateral primary osteoarthritis, right knee Hoang protocol. FINDINGS: Bones: No evidence of acute fracture or dislocation. No aggressive appearing osseous abnormality or periostitis. 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 Diverticulosis without diverticulitis. There is a large popliteal cyst with some surrounding hazy infiltrative changes of the soft tissues. There is a small fat containing right inguinal hernia. Markedly enlarged prostate measuring 6.4 cm. Joint: The patient is status post left medial avis knee arthroplasty. No evidence of hardware failure. There are mild degenerative changes of the lateral tibiofemoral joint space as well as the patellofemoral space including marginal osteophyte production. There is mild lateral subluxation of the patella. Small joint effusion. Degenerative changes in the hindfoot as well as an os trigonum noted. Degenerative changes of the hip joint including joint space narrowing, marginal osteophyte production as well as subchondral sclerosis and some cyst formation. IMPRESSION: No acute osseous abnormality or aggressive osseous lesion. Mild degenerative changes of the lateral tibiofemoral compartment and patellofemoral compartment. Mild lateral subluxation of the patella. Status post right knee medial hemiarthroplasty. No evidence of hardware failure. Small right knee joint effusion. Diverticulosis without diverticulitis. Prostatomegaly. I have personally reviewed the images of this examination, agree with resident's findings and interpretation. Interpreted by: Hasmukh Landaverde MD Preliminary Report By: Rodríguez Freire Electronically signed By Hasmukh Landaverde MD Dictated Date: 11/05/2023 10:49:35 AM Prelim Date: 11/05/2023 1:14:23 PM Sign Date: 11/05/2023 1:14:23 PM Ordering Provider: JUDSON RUTLEDGE Normal [facility]) Gel ABOon 11-05-2023 ABO/Rh Interp Positive Invalid Interpretation Code [facility] ([place]) Comment on above: Performed By: #### M G, TSH, CBC, CMP, ANEU, VIDH, GFR, ADIFF #### [address] [address] #### B12 #### [address] [address] Gel ABSon 11-05-2023 Antibody Screen Gel Negative Normal [facility] ([place]) Comment on above: Performed By: #### M G, TSH, CBC, CMP, ANEU, VIDH, GFR, ADIFF #### [address] [address] #### B12 #### [address] [address] LABORATORYOrdered By: Radha Bertrand on 11-05-2023 ABO/Rh Interp Positive Invalid Interpretation Code AO BB SS Antibody Screen Gel Negative ABSC (11/05/23 9:53 AM) Normal AO BB SS LABORATORYOrdered By: SYSTEM SYSTEM on 11-05-2023 Albumin BCP dye [Mass/Vol] 3.8 G/dL Normal 3.4 - 4.8 G/dL AO ADM SS Basophil, Absolute 0.0 103/mcL Normal 0.0 - 0.2 10^3/mcL AO Workflow SS Basophils/100 WBC (Bld) 0.8 % Normal 0.0 - 2.5 % AO Workflow SS Calcium [Mass/Vol] 9.6 mg/dL Normal 8.4 - 10. 2 mg/dL AO ADM SS Chloride [Moles/Vol] 106 mmol/L Normal 98 - 10 7 mmol/L AO ADM SS CO2 [Moles/Vol] 26 mmol/L Normal 23 - 31 mmol/L AO ADM SS Creatinine [Mass/Vol] 1.20 mg/dL Normal 0.70 - 1.30 mg/dL AO ADM SS Electrolyte Balance 11.0 mEq/L Normal 4.0 - 15 .0 mEq/L AO ADM SS Eosinophil, Absolute 0.1 103/mcL Normal 0.0 - 0 .4 10^3/mcL AO Workflow SS Eosinophils/100 WBC (Bld) 1.4 % Normal 0.0 - 7.0 % AO Workflow SS Erythrocyte distribution width (RBC) [Ratio] 14.0 % Normal 11.5 - 14.5 % AO Workflow SS GFR/1.73 sq M.predicted among blacks MDRD (S/P/Bld) [Vol rate/Area] 71 ml/min/1.73sqm Invalid Interpretation Code AO Chemistry S Comment on above: Interpretive Data: GFR Population mean for , Non- Americans Ages 20-29 = 116 mL/min/1.73 sq.m. Ages 30-39 = 107 mL/min/1.73 sq.m. Ages 40-49 = 99 mL/min/1.73 sq.m. Ages 50-59 = 93 mL/min/1.73 sq.m. Ages 60-69 = 85 mL/min/1.73 sq.m. Ages 70+ = 75 mL/min/1.73 sq.m. Chronic Kidney Disease: Less than 60 mL/min/1.73 square meters End Stage Renal Disease: Less than 15 mL/min/1.73 square meters GFR/1.73 sq M.predicted among non-blacks MDRD (S/P/Bld) [Vol rate/Area] 59 ml/min/1.73sqm Invalid Interpretation Code AO Chemistry S Comment on above: Interpretive Data: GFR Population mean for , Non- Americans Ages 20-29 = 116 mL/min/1.73 sq.m. Ages 30-39 = 107 mL/min/1.73 sq.m. Ages 40-49 = 99 mL/min/1.73 sq.m. Ages 50-59 = 93 mL/min/1.73 sq.m. Ages 60-69 = 85 mL/min/1.73 sq.m. Ages 70+ = 75 mL/min/1.73 sq.m. Chronic Kidney Disease: Less than 60 mL/min/1.73 square meters End Stage Renal Disease: Less than 15 mL/min/1.73 square meters Glucose [Mass/Vol] 120 mg/dL High 83 - 110 mg/dL AO ADM SS Hematocrit (Bld) [Volume fraction] 38.9 % Low 42.0 - 52.0 % AO Workflow SS Hemoglobin (Bld) [Mass/Vol] 13.7 G/dL Low 14.0 - 18.0 G/dL AO Workflow SS Lymphocyte, Absolute 1.6 103/mcL Normal 0.8 - 3 .9 10^3/mcL AO Workflow SS Lymphocytes/100 WBC (Bld) 30.1 % Normal 10.0 - 50.0 % AO Workflow SS MCH (RBC) [Entitic mass] 33.5 pg High 27.0 - 31.2 pg AO Workflow SS MCHC 35.1 G/dL Normal 31.8 - 35.4 G/dL AO Workflow SS MCV (RBC) [Entitic vol] 95.3 fL High 80.0 - 94.0 fL AO Workflow SS Monocyte, Absolute 0.4 103/mcL Normal 0.2 - 1.0 10^3/mcL AO Workflow SS Monocytes/100 WBC (Bld) 8.0 % Normal 1.7 - 13.0 % AO Workflow SS Neutrophil, Absolute 3.1 103/mcL Normal 2.9 - 6 .2 10^3/mcL AO Workflow SS Neutrophils/100 WBC (Bld) 59.7 % Normal 37.0 - 80.0 % AO Workflow SS Platelet mean volume (Bld) [Entitic vol] 7.7 fL Normal 7.4 - 10.4 fL AO Workflow SS Platelets (Bld) [#/Vol] 169 103/mcL Normal 130 - 400 10^3/mcL AO Workflow SS Potassium [Moles/Vol] 4.2 mmol/L Normal 3.5 - 5.1 mmol/L AO ADM SS RBC (Bld) [#/Vol] 4.08 106/mcL Normal 4.04 - 6.1 3 10^6/mcL AO Workflow SS Sodium [Moles/Vol] 143 mmol/L Normal 136 - 145 mmol/L AO ADM SS Urea nitrogen [Mass/Vol] 25 mg/dL High 7 - 18 mg/dL AO ADM SS Urea nitrogen/Creatinine [Mass ratio] 21 ratio Normal 7 - 27 ratio AO ADM SS WBC (Bld) [#/Vol] 5.2 103/mcL Normal 4.6 - 10.8 10^3/mcL AO Workflow SS LABORATORYOrdered By: Leni Chadwick on 11-05-2023 MRSA (PCR) Not Detected 1 (11/05/23 9:53 AM) Normal Not Detected Auto Viro/Sero SS Comment on above: Result Comment: Note s MRSA PCR Int MRSA DNA not detected by Real-Time Polymerase Chain Reaction (PCR). A negative result may be due to intermittent colonization. Colonization may vary depending on patient treatment, patient status, or exposure to high-risk environments.As with all PCR based in vitro diagnostic tests, extremely low levels of target below the limit of detection of the assay may be detected, but results may not be reproducible. Invalid Interpretation Code Auto Viro/Sero SS MRSAPCRon 11-05-2023 MRSA (PCR) Not detected Normal Not Detected [facility] ([place]) Comment on above: Result Comment: [place] [id number] Performed By: #### M G, TSH, CBC, CMP, ANEU, VIDH, GFR, ADIFF #### [place] [place], [place] [address] #### B12 #### [address] [address] MRSA PCR Int Normal [facility] ([place]) Comment on above: Result Comment: MRSA DNA not detected by Real-Time Polymerase Chain Reaction (PCR). A negative result may be due to intermittent colonization. Colonization may vary depending on patient treatment, patient status, or exposure to high-risk environments. As with all PCR based in vitro diagnostic tests, extremely low levels of target below the limit of detection of the assay may be detected, but results may not be reproducible. See Below Performed By: #### M G, TSH, CBC, CMP, ANEU, VIDH, GFR, ADIFF #### [facility] [address] [place], [place] [address] #### B12 #### [address] [address] MRI KNEE W/O CONTRAST RIGHTo n 08-17-2023 MRI KNEE W/O CONTRAST RIGHT ORIGINAL EXAMINATION: MRI OF THE RIGHT KNEE WITHOUT HUPBMHKE84/31/2023 10:47 am TECHNIQUE: Multiplanar multisequence MRI of the right knee was performed without the administration of intravenous contrast. COMPARISON: None HISTORY: ORDERING SYSTEM PROVIDED HISTORY: Reason for Exam: PAIN IN RIGHT KNEE, previous hemiarthroplasty, instability suspected FINDINGS: The patient has a medial hemiarthroplasty causing artifact despite utilizing metal artifact reduction technique. Evaluation of the medial compartment is not reliable. The lateral femorotibial compartment shows areas of high-grade cartilage loss in the weight-bearing portions of the femur and tibia. No underlying osteochondral defects. There is globular intrasubstance signal in the lateral meniscal body without articular extension. Also fraying of its free edge. No definite lateral meniscal tear the lateral collateral ligament and major lateral supporting structures are intact. The ACL is normal. There is thickening and moderately increased intrasubstance signal in the PCL suggestive of mucoid degeneration and intrasubstance tearing. It maintains normal trajectory however. There is mild tendinosis in the distal quadriceps tendon without focal or high-grade tear. The patellar tendon is intact. Bone marrow signal is within normal limits. No evidence of stress reaction or fracture. There is no patellar maltracking. There is low-grade patellar chondromalacia but high-grade loss of articular cartilage in the trochlea. Patellar retinacula are intact with susceptibility artifacts in the region of the medial retinaculum. There is increased signal in the suprapatellar quadriceps fat pad. The infrapatellar fat is unremarkable. There is minimal joint effusion. Small ganglion cysts are present posterior to the lateral femoral metaphysis and the lateral gastrocnemius insertion. There is also a small midline popliteal cyst extending cephalad lateral to the popliteal vessels. Other muscles and tendons around the knee are unremarkable. There is trace fluid in a medial popliteal cyst. IMPRESSION: Medial arthroplasty. High-grade cartilage loss in the lateral femorotibial compartment. Lateral meniscal degeneration without an obvious tear. Mucoid degeneration and intrasubstance tearing of the PCL. No partial or full-thickness tear. Mild quadriceps tendinosis. No partial or full-thickness tear. Edema in the suprapatellar quadriceps fat pad. This can be from impingement. Clinical significance is uncertain, correlate clinically. Interpreted by: Ian Marrero MD Preliminary Report By: Ian Marrero MD Electronically signed By Ian Marrero MD Dictated Date: 08/17/2023 9:05:21 AM Prelim Date: 08/17/2023 9:15:24 AM Sign Date: 08/17/2023 9:15:24 AM Ordering Provider: JUDSON RUTLEDGE Normal [facility] ([place]) UA DIP, URINE (POC)on 2022 BILIRUBIN UA (POCT) Negative Negative [facility] CLARITY UA (POCT) Clear [facility] COLOR UA (POCT) Dark yellow [facility] [facility] GLUCOSE UA (POCT) Negative Negative mg/dL [facility] Hemoglobin Ql (U) Trace-lysed Abnormal Negative [facility] KETONE UA (POCT) Negative Negative mg/dL [facility] LEUKOCYTES UA (POCT) Negative Negative [facility] NITRITE UA (POCT) Negative Negative [facility] PH UA (POCT) 5.0 4.5 - 8.0 [facility] Protein Ql (U) Negative Negative mg/dL [facility] SPECIFIC GRAVITY UA (POCT) 1.025 1.005 - 1.030 [facility] UROBILINOGEN UA (POCT) 0.2 E.U./dL Normal E.U./dL [facility] .Auto Diffon 03-17-2023 Basophil, Absolute 0.0 10 3/mcL Normal 0.0-0.2 [facility] ([place]) Comment on above: Performed By: #### M G, TSH, CBC, CMP, ANEU, VIDH, GFR, ADIFF #### [address] [address] #### B12 #### [address] [address] Basophils/100 WBC (Bld) 0.6 % Normal 0.0-2.5 [facility] ([place]) Comment on above: Performed By: #### M G, TSH, CBC, CMP, ANEU, VIDH, GFR, ADIFF #### [address] [address] #### B12 #### [address] [address] Eosinophil, Absolute 0.1 10 3/mcL Normal 0.0-0.4 [facility] ([place]) Comment on above: Performed By: #### M G, TSH, CBC, CMP, ANEU, VIDH, GFR, ADIFF #### [address] [address] #### B12 #### [address] [address] Eosinophils/100 WBC (Bld) 1.4 % Normal 0.0-7.0 [facility] ([place]) Comment on above: Performed By: #### M G, TSH, CBC, CMP, ANEU, VIDH, GFR, ADIFF #### [address] [address] #### B12 #### [address] [address] Lymphocyte, Absolute 1.7 10 3/mcL Normal 0.8-3.9 [facility] ([place]) Comment on above: Performed By: #### M G, TSH, CBC, CMP, ANEU, VIDH, GFR, ADIFF #### [address] [address] #### B12 #### [address] [address] Lymphocytes/100 WBC (Bld) 28.8 % Normal 10.0-50.0 [facility] ([place]) Comment on above: Performed By: #### M G, TSH, CBC, CMP, ANEU, VIDH, GFR, ADIFF #### [address] [address] #### B12 #### [address] [address] Monocyte, Absolute 0.5 10 3/mcL Normal 0.2-1.0 [facility] ([place]) Comment on above: Performed By: #### M G, TSH, CBC, CMP, ANEU, VIDH, GFR, ADIFF #### [address] [address] #### B12 #### [address] [address] Monocytes/100 WBC (Bld) 9.1 % Normal 1.7-13.0 [facility] ([place]) Comment on above: Performed By: #### M G, TSH, CBC, CMP, ANEU, VIDH, GFR, ADIFF #### [address] [address] #### B12 #### [address] [address] Neutrophils/100 WBC (Bld) 60.1 % Normal 37.0-80.0 [facility] ([place]) Comment on above: Performed By: #### M G, TSH, CBC, CMP, ANEU, VIDH, GFR, ADIFF #### [address] [address] #### B12 #### [address] [address] .GFRon 03-17-2023 GFR 73 ml/min/1.73sqm Normal [facility] ([place]) Comment on above: Result Comment: GFR Population mean for , Non- Americans Ages 20-29 = 116 mL/min/1.73 sq.m. Ages 30-39 = 107 mL/min/1.73 sq.m. Ages 40-49 = 99 mL/min/1.73 sq.m. Ages 50-59 = 93 mL/min/1.73 sq.m. Ages 60-69 = 85 mL/min/1.73 sq.m. Ages 70+ = 75 mL/min/1.73 sq.m. Chronic Kidney Disease: Less than 60 mL/min/1.73 square meters End Stage Renal Disease: Less than 15 mL/min/1.73 square meters Performed By: #### M G, TSH, CBC, CMP, ANEU, VIDH, GFR, ADIFF #### [address] [address] #### B12 #### [address] [address] GFR Non- 60 ml/min/1.73sqm Normal [facility] ([place]) Comment on above: Result Comment: GFR Population mean for , Non- Americans Ages 20-29 = 116 mL/min/1.73 sq.m. Ages 30-39 = 107 mL/min/1.73 sq.m. Ages 40-49 = 99 mL/min/1.73 sq.m. Ages 50-59 = 93 mL/min/1.73 sq.m. Ages 60-69 = 85 mL/min/1.73 sq.m. Ages 70+ = 75 mL/min/1.73 sq.m. Chronic Kidney Disease: Less than 60 mL/min/1.73 square meters End Stage Renal Disease: Less than 15 mL/min/1.73 square meters Performed By: #### M G, TSH, CBC, CMP, ANEU, VIDH, GFR, ADIFF #### [address] [address] #### B12 #### [address] [address] .NEUABSon 03-17-2023 Neutrophil, Absolute 3.6 10 3/mcL Normal 2.9-6.2 [facility] ([place]) Comment on above: Performed By: #### M G, TSH, CBC, CMP, ANEU, VIDH, GFR, ADIFF #### [address] [address] #### B12 #### [address] [address] B12on 03-17-2023 Cobalamin (Vitamin B12) [Mass/Vol] 379 pg/mL Normal 211-911 [facility] ([place]) Comment on above: Performed By: #### M G, TSH, CBC, CMP, ANEU, VIDH, GFR, ADIFF #### [address] [address] #### B12 #### [address] [address] CBCon 03-17-2023 Erythrocyte distribution width (RBC) [Ratio] 14.0 % Normal 11.5-14.5 [facility] ([place]) Comment on above: Performed By: #### M G, TSH, CBC, CMP, ANEU, VIDH, GFR, ADIFF #### [place] [address] #### B12 #### [address] [address] Hematocrit (Bld) [Volume fraction] 41.1 % Low 42.0-52.0 [facility] ([place]) Comment on above: Performed By: #### M G, TSH, CBC, CMP, ANEU, VIDH, GFR, ADIFF #### [address] [address] #### B12 #### [address] [address] Hgb 14.0 G/dL Normal 14.0-18.0 [facility] ([place]) Comment on above: Performed By: #### M G, TSH, CBC, CMP, ANEU, VIDH, GFR, ADIFF #### [place] [address] #### B12 #### [address] [address] MCH (RBC) [Entitic mass] 33.0 pg High 27.0-31.2 [facility] ([place]) Comment on above: Performed By: #### M G, TSH, CBC, CMP, ANEU, VIDH, GFR, ADIFF #### [address] [address] #### B12 #### [address] [address] MCHC 34.0 G/dL Normal 31.8-35.4 [facility] ([place]) Comment on above: Performed By: #### M G, TSH, CBC, CMP, ANEU, VIDH, GFR, ADIFF #### [place] [address] #### B12 #### [place] [address] MCV (RBC) [Entitic vol] 97.0 fL High 80.0-94.0 [facility] ([place]) Comment on above: Performed By: #### M G, TSH, CBC, CMP, ANEU, VIDH, GFR, ADIFF #### [place] [address] #### B12 #### [place] [address] Platelet 190 10 3/mcL Normal 130-400 [facility] ([place]) Comment on above: Performed By: #### M G, TSH, CBC, CMP, ANEU, VIDH, GFR, ADIFF #### [place] [address] #### B12 #### [place] [address] Platelet mean volume (Bld) [Entitic vol] 7.4 fL Normal 7.4-10.4 [facility] ([place]) Comment on above: Performed By: #### M G, TSH, CBC, CMP, ANEU, VIDH, GFR, ADIFF #### [place] [address] #### B12 #### [place] [address] RBC 4.24 10 6/mcL Normal 4.04-6.13 [facility] ([place]) Comment on above: Performed By: #### M G, TSH, CBC, CMP, ANEU, VIDH, GFR, ADIFF #### [place] [address] #### B12 #### [place] [address] WBC 6.0 10 3/mcL Normal 4.6-10.8 [facility] ([place]) Comment on above: Performed By: #### M G, TSH, CBC, CMP, ANEU, VIDH, GFR, ADIFF #### [address] [address] #### B12 #### [address] [address] CMPon 03-17-2023 Albumin Level 4.3 G/dL Normal 3.4-4.8 [facility] ([place]) Comment on above: Performed By: #### M G, TSH, CBC, CMP, ANEU, VIDH, GFR, ADIFF #### [place] [address] #### B12 #### [place] [address] Albumin/Globulin [Mass ratio] 1.5 {ratio} Normal 1.1-2.5 [facility] ([place]) Comment on above: Performed By: #### M G, TSH, CBC, CMP, ANEU, VIDH, GFR, ADIFF #### [place] [address] #### B12 #### [place] [address] ALP [Catalytic activity/Vol] 78 U/L Normal 40-135 [facility] ([place]) Comment on above: Performed By: #### M G, TSH, CBC, CMP, ANEU, VIDH, GFR, ADIFF #### [address] [address] #### B12 #### [address] [address] ALT [Catalytic activity/Vol] 31 U/L Normal 16-63 [facility] ([place]) Comment on above: Performed By: #### M G, TSH, CBC, CMP, ANEU, VIDH, GFR, ADIFF #### [address] [address] #### B12 #### [address] [address] AST [Catalytic activity/Vol] 20 U/L Normal 10-40 [facility] ([place]) Comment on above: Performed By: #### M G, TSH, CBC, CMP, ANEU, VIDH, GFR, ADIFF #### [address] [address] #### B12 #### [address] [address] Bili Total 0.8 mg/dL Normal 0.2-1.0 [facility] ([place]) Comment on above: Result Comment: Use of this assay is not recommended for patients undergoing treatment with eltrombopag due to the potential for falsely elevated results. Performed By: #### M G, TSH, CBC, CMP, ANEU, VIDH, GFR, ADIFF #### [place] [address] #### B12 #### [place] [id number] BUN/Creatinine Ratio 19 ratio Normal 7-27 [facility] ([place]) Comment on above: Performed By: #### M G, TSH, CBC, CMP, ANEU, VIDH, GFR, ADIFF #### [place] [address] #### B12 #### [address] [address] Calcium [Mass/Vol] 9.4 mg/dL Normal 8.4-10.2 [facility] ([place]) Comment on above: Performed By: #### M G, TSH, CBC, CMP, ANEU, VIDH, GFR, ADIFF #### [place] [address] #### B12 #### [address] [address] Chloride [Moles/Vol] 106 mmol/L Normal 98-107 [facility] ([place]) Comment on above: Performed By: #### M G, TSH, CBC, CMP, ANEU, VIDH, GFR, ADIFF #### [place] [address] #### B12 #### [address] [address] CO2 [Moles/Vol] 28 mmol/L Normal 23-31 [facility] ([place]) Comment on above: Performed By: #### M G, TSH, CBC, CMP, ANEU, VIDH, GFR, ADIFF #### [address] [address] #### B12 #### [address] [address] Creatinine [Mass/Vol] 1.18 mg/dL Normal 0.70-1.30 [facility] ([place]) Comment on above: Performed By: #### M G, TSH, CBC, CMP, ANEU, VIDH, GFR, ADIFF #### [address] [address] #### B12 #### [address] [address] Electrolyte Balance 6.0 mEq/L Normal 4.0-15.0 [facility] ([place]) Comment on above: Performed By: #### M G, TSH, CBC, CMP, ANEU, VIDH, GFR, ADIFF #### [address] [address] #### B12 #### [address] [address] Globulin 2.9 G/dL Normal [facility] ([place]) Comment on above: Performed By: #### M G, TSH, CBC, CMP, ANEU, VIDH, GFR, ADIFF #### [address] [address] #### B12 #### [address] [address] Glucose [Mass/Vol] 118 mg/dL High 83-110 [facility] ([place]) Comment on above: Performed By: #### M G, TSH, CBC, CMP, ANEU, VIDH, GFR, ADIFF #### [address] [address] #### B12 #### [address] [address] Potassium [Moles/Vol] 4.7 mmol/L Normal 3.5-5.1 [facility] ([place]) Comment on above: Performed By: #### M G, TSH, CBC, CMP, ANEU, VIDH, GFR, ADIFF #### [address] [address] #### B12 #### [address] [address] Sodium [Moles/Vol] 140 mmol/L Normal 136-145 [facility] ([place]) Comment on above: Performed By: #### M G, TSH, CBC, CMP, ANEU, VIDH, GFR, ADIFF #### [address] [address] #### B12 #### [address] [address] Total Protein 7.2 G/dL Normal 6.4-8.2 [facility] ([place]) Comment on above: Performed By: #### M G, TSH, CBC, CMP, ANEU, VIDH, GFR, ADIFF #### [address] [address] #### B12 #### [address] [address] Urea nitrogen [Mass/Vol] 23 mg/dL High 7-18 [facility] ([place]) Comment on above: Performed By: #### M G, TSH, CBC, CMP, ANEU, VIDH, GFR, ADIFF #### [address] [address] #### B12 #### [address] [address] LABORATORYOrdered By: SYSTEM SYSTEM on 03-17-2023 25-hydroxyvitamin D3 [Mass/Vol] 60.2 ng/mL Invalid Interpretation Code AO ADM SS Albumin BCP dye [Mass/Vol] 4.3 G/dL Invalid Interpretation Code 3.4 - 4.8 G/dL AO ADM SS Albumin/Globulin [Mass ratio] 1.5 {ratio} Invalid Interpretation Code 1.1 - 2.5 ratio AO ADM SS ALP [Catalytic activity/Vol] 78 U/L Invalid Interpretation Code 40 - 135 U/L AO ADM SS ALT With P-5'-P [Catalytic activity/Vol] 31 U/L Invalid Interpretation Code 16 - 63 U/L AO ADM SS AST With P-5'-P [Catalytic activity/Vol] 20 U/L Invalid Interpretation Code 10 - 40 U/L AO ADM SS Bilirubin [Mass/Vol] 0.8 mg/dL Invalid Interpretation Code 0.2 - 1.0 mg/dL AO ADM SS Calcium [Mass/Vol] 9.4 mg/dL Invalid Interpretation Code 8.4 - 10.2 mg/dL AO ADM SS Chloride [Moles/Vol] 106 mmol/L Invalid Interpretation Code 98 - 107 mmol/L AO ADM SS CO2 [Moles/Vol] 28 mmol/L Invalid Interpretation Code 23 - 31 mmol/L AO ADM SS Cobalamin (Vitamin B12) [Mass/Vol] 379 pg/mL Invalid Interpretation Code 211 - 911 pg/mL AH ADM SS Creatinine [Mass/Vol] 1.18 mg/dL Invalid Interpretation Code 0.70 - 1.30 mg/dL AO ADM SS Electrolyte Balance 6.0 mEq/L Invalid Interpretation Code 4.0 - 15.0 mEq/L AO ADM SS GFR/1.73 sq M.predicted among blacks MDRD (S/P/Bld) [Vol rate/Area] 73 ml/min/1.73sqm Invalid Interpretation Code AO Chemistry S GFR/1.73 sq M.predicted among non-blacks MDRD (S/P/Bld) [Vol rate/Area] 60 ml/min/1.73sqm Invalid Interpretation Code AO Chemistry S Globulin 2.9 G/dL Invalid Interpretation Code AO ADM SS Glucose [Mass/Vol] 118 mg/dL Invalid Interpretation Code 83 - 110 mg/dL AO ADM SS Magnesium [Mass/Vol] 2.0 mg/dL Invalid Interpretation Code 1.8 - 2.4 mg/dL AO ADM SS Potassium [Moles/Vol] 4.7 mmol/L Invalid Interpretation Code 3.5 - 5.1 mmol/L AO ADM SS Protein [Mass/Vol] 7.2 G/dL Invalid Interpretation Code 6.4 - 8.2 G/dL AO ADM SS Sodium [Moles/Vol] 140 mmol/L Invalid Interpretation Code 136 - 145 mmol/L AO ADM SS TSH Qn 1.67 m[IU]/L Invalid Interpretation Code 0.36 - 3.74 mcIU/mL AO ADM SS Urea nitrogen [Mass/Vol] 23 mg/dL Invalid Interpretation Code 7 - 18 mg/dL AO ADM SS Urea nitrogen/Creatinine [Mass ratio] 19 ratio Invalid Interpretation Code 7 - 27 ratio AO ADM SS LABORATORYOrdered By: Ronda Hillman on 03-17-2023 Basophil, Absolute 0.0 103/mcL Invalid Interpretation Code 0.0 - 0.2 10^3/mcL AO Workflow SS Basophils/100 WBC (Bld) 0.6 % Invalid Interpretation Code 0.0 - 2.5 % AO Workflow SS Eosinophil, Absolute 0.1 103/mcL Invalid Interpretation Code 0.0 - 0.4 10^3/mcL AO Workflow SS Eosinophils/100 WBC (Bld) 1.4 % Invalid Interpretation Code 0.0 - 7.0 % AO Workflow SS Erythrocyte distribution width (RBC) [Ratio] 14.0 % Invalid Interpretation Code 11.5 - 14.5 % AO Workflow SS Hematocrit (Bld) [Volume fraction] 41.1 % Invalid Interpretation Code 42.0 - 52.0 % AO Workflow SS Hemoglobin (Bld) [Mass/Vol] 14.0 G/dL Invalid Interpretation Code 14.0 - 18.0 G/dL AO Workflow SS Lymphocyte, Absolute 1.7 103/mcL Invalid Interpretation Code 0.8 - 3.9 10^3/mcL AO Workflow SS Lymphocytes/100 WBC (Bld) 28.8 % Invalid Interpretation Code 10.0 - 50.0 % AO Workflow SS MCH (RBC) [Entitic mass] 33.0 pg Invalid Interpretation Code 27.0 - 31.2 pg AO Workflow SS MCHC 34.0 G/dL Invalid Interpretation Code 31.8 - 35.4 G/dL AO Workflow SS MCV (RBC) [Entitic vol] 97.0 fL Invalid Interpretation Code 80.0 - 94.0 fL AO Workflow SS Monocyte, Absolute 0.5 103/mcL Invalid Interpretation Code 0.2 - 1.0 10^3/mcL AO Workflow SS Monocytes/100 WBC (Bld) 9.1 % Invalid Interpretation Code 1.7 - 13.0 % AO Workflow SS Neutrophil, Absolute 3.6 103/mcL Invalid Interpretation Code 2.9 - 6.2 10^3/mcL AO Workflow SS Neutrophils/100 WBC (Bld) 60.1 % Invalid Interpretation Code 37.0 - 80.0 % AO Workflow SS Platelet mean volume (Bld) [Entitic vol] 7.4 fL Invalid Interpretation Code 7.4 - 10.4 fL AO Workflow SS Platelets (Bld) [#/Vol] 190 103/mcL Invalid Interpretation Code 130 - 400 10^3/mcL AO Workflow SS RBC (Bld) [#/Vol] 4.24 106/mcL Invalid Interpretation Code 4.04 - 6.13 10^6/mcL AO Workflow SS WBC (Bld) [#/Vol] 6.0 103/mcL Invalid Interpretation Code 4.6 - 10.8 10^3/mcL AO Workflow SS MALBRon 03-17-2023 U Creatinine 190.9 mg/dL Normal 39.0-259.0 [facility] ([place]) Comment on above: Performed By: #### M G, TSH, CBC, CMP, ANEU, VIDH, GFR, ADIFF #### [address] [address] #### B12 #### [address] [address] U Microalb 1311 mcg/dL Normal [facility] ([place]) Comment on above: Performed By: #### M G, TSH, CBC, CMP, ANEU, VIDH, GFR, ADIFF #### [address] [address] #### B12 #### [address] [address] U Ratio Alb/Cre 7 mcg/mg Normal 0-30 [facility] ([place]) Comment on above: Performed By: #### M G, TSH, CBC, CMP, ANEU, VIDH, GFR, ADIFF #### [address] [address] #### B12 #### [address] [address] MGon 03-17-2023 Magnesium [Mass/Vol] 2.0 mg/dL Normal 1.8-2.4 [facility] ([place]) Comment on above: Performed By: #### M G, TSH, CBC, CMP, ANEU, VIDH, GFR, ADIFF #### [address] [address] #### B12 #### [address] [address] TSHon 03-17-2023 TSH Qn 1.67 m[IU]/L Normal 0.36-3.74 [facility] ([place]) Comment on above: Performed By: #### M G, TSH, CBC, CMP, ANEU, VIDH, GFR, ADIFF #### [address] [address] #### B12 #### [address] [address] VIDHon 03-17-2023 Vit. D 25-Hydroxy 60.2 ng/mL Normal [facility] ([place]) Comment on above: Result Comment: Inte rpretive Values Based on Total 25(OH) Vitamin D: Deficient <20 ng/mL Insufficient 20 - <30 ng/mL Sufficient 30-100 ng/mL Performed By: #### M G, TSH, CBC, CMP, ANEU, VIDH, GFR, ADIFF #### [address] [address] #### B12 #### [address] [address] UA DIP, URINE (POC)on 2021 BILIRUBIN UA (POCT) Negative Negative [facility] CLARITY UA (POCT) Clear [facility] COLOR UA (POCT) Yellow [facility] GLUCOSE UA (POCT) Negative Negative mg/dL [facility] HEMOGLOBIN/BLOOD UA (POCT) Trace-intact Abnormal Negative [facility] KETONE UA (POCT) Negative Negative mg/dL [facility] LEUKOCYTES UA (POCT) Trace Abnormal Negative [facility] NITRITE UA (POCT) Negative Negative [facility] PH UA (POCT) 6.5 4.5 - 8.0 [facility] Protein Ql (U) Negative Negative mg/dL [facility] SPECIFIC GRAVITY UA (POCT) 1.020 1.005 - 1.030 [facility] UROBILINOGEN UA (POCT) 0.2 E.U./dL Normal E.U./dL [facility] LABORATORYOrdered By: Karolina Singletary on 03-12-2022 Albumin BCP dye [Mass/Vol] 4.3 G/dL Invalid Interpretation Code 3.4 - 4.8 G/dL AO ADM SS Albumin/Globulin [Mass ratio] 1.4 {ratio} Invalid Interpretation Code 1.1 - 2.5 ratio AO ADM SS ALP [Catalytic activity/Vol] 71 U/L Invalid Interpretation Code 40 - 135 U/L AO ADM SS ALT With P-5'-P [Catalytic activity/Vol] 30 U/L Invalid Interpretation Code 16 - 63 U/L AO ADM SS AST With P-5'-P [Catalytic activity/Vol] 21 U/L Invalid Interpretation Code 10 - 40 U/L AO ADM SS Bilirubin [Mass/Vol] 0.7 mg/dL Invalid Interpretation Code 0.2 - 1.0 mg/dL AO ADM SS Calcium [Mass/Vol] 9.6 mg/dL Invalid Interpretation Code 8.4 - 10.2 mg/dL AO ADM SS Chloride [Moles/Vol] 105 mmol/L Invalid Interpretation Code 98 - 107 mmol/L AO ADM SS CO2 [Moles/Vol] 27 mmol/L Invalid Interpretation Code 23 - 31 mmol/L AO ADM SS Creatinine [Mass/Vol] 1.36 mg/dL Invalid Interpretation Code 0.70 - 1.30 mg/dL AO ADM SS Electrolyte Balance 8.0 mEq/L Invalid Interpretation Code 4.0 - 15.0 mEq/L AO ADM SS Globulin 3.0 G/dL Invalid Interpretation Code AO ADM SS Glucose [Mass/Vol] 115 mg/dL Invalid Interpretation Code 83 - 110 mg/dL AO ADM SS Potassium [Moles/Vol] 4.4 mmol/L Invalid Interpretation Code 3.5 - 5.1 mmol/L AO ADM SS Protein [Mass/Vol] 7.3 G/dL Invalid Interpretation Code 6.4 - 8.2 G/dL AO ADM SS Sodium [Moles/Vol] 140 mmol/L Invalid Interpretation Code 136 - 145 mmol/L AO ADM SS TSH Qn 1.66 m[IU]/L Invalid Interpretation Code 0.36 - 3.74 mcIU/mL AO ADM SS Urea nitrogen [Mass/Vol] 31 mg/dL Invalid Interpretation Code 7 - 18 mg/dL AO ADM SS Urea nitrogen/Creatinine [Mass ratio] 23 ratio Invalid Interpretation Code 7 - 27 ratio AO ADM SS Vit. D 25-Hydroxy 56.2 ng/mL Invalid Interpretation Code AO ADM SS LABORATORYOrdered By: SYSTEM SYSTEM on 03-12-2022 GFR 62 ml/min/1.73sqm Invalid Interpretation Code AO Chemistry S GFR Non- 51 ml/min/1.73sqm Invalid Interpretation Code AO Chemistry S LABORATORYOrdered By: Seda Bingham on 03-12-2022 Hep C Ab Non-Reactive (03/12/22 11:32 AM) Invalid Interpretation Code Non-Reactive AH ADM SS Hep C Ab Int Nonreactive: Samples with a value < 0.80 are considered nonreactive (negative) for antibodies to HCV.A negative test result does not exclude the possibility of exposure to or infection with HCV. HCV antibodies may be undetectable in some stages of the infection and in some clinical conditions. Invalid Interpretation Code AH Chemistry S LABORATORYOrdered By: Karolina Singletary on 09-11-2021 Prostate specific Ag [Mass/Vol] 10.19 ng/mL Invalid Interpretation Code 0.00 - 4.00 ng/mL AO ADM SS Vit. D 25-Hydroxy 21.6 ng/mL Invalid Interpretation Code AO ADM SS Vital Signs Date Time Vital Sign Value Performing Clinician Facility 06-07-2024 08:55-0400 Body height 188 cm [employer] PA-C Work Phone: [facility] 06-07-2024 08:55-0400 Body mass index (BMI) [Ratio] 27.09 kg/m2 Teena Crockett PA-C Work Phone: [facility] 06-07-2024 08:55-0400 Body temperature 97.5 [degF] Teena Crockett PA-C Work Phone: [facility] 06-07-2024 08:55-0400 Body weight 95.71 kg Teena Crockett PA-C Work Phone: [facility] 06-07-2024 08:55-0400 Diastolic blood pressure 68 mm[Hg] Teena Crockett PA-C Work Phone: [facility] 06-07-2024 08:55-0400 Heart rate 76 /min Teena Crockett PA-C Work Phone: [facility] 06-07-2024 08:55-0400 Respiratory rate 14 /min Teena Crockett PA-C Work Phone: [facility] 06-07-2024 08:55-0400 SaO2% (BldA) [Mass fraction] 98 % Teena Crockett PA-C Work Phone: [facility] 06-07-2024 08:55-0400 Systolic blood pressure 126 mm[Hg] Teena Crockett PA-C Work Phone: [facility] 03-01-2024 13:55-0400 Body mass index (BMI) [Ratio] 26.78 kg/m2 Teena Crockett PA-C Work Phone: [facility] 03-01-2024 13:55-0400 Body weight 94.62 kg Teena Crockett PA-C Work Phone: [facility] 03-01-2024 13:55-0400 Diastolic blood pressure 58 mm[Hg] Teena Crockett PA-C Work Phone: [facility] 03-01-2024 13:55-0400 SaO2% (BldA) [Mass fraction] 96 % Teena Crockett PA-C Work Phone: [facility] 03-01-2024 13:55-0400 Systolic blood pressure 102 mm[Hg] Teena Crockett PA-C Work Phone: [facility] 12-03-2023 15:35-0500 Body height 185.4 cm EMIR CORDERO DO [facility] 12-03-2023 15:35-0500 Body temperature 98.06 [degF] EMIR CORDERO DO [facility] 12-03-2023 15:35-0500 Body weight 97.7 kg EMIR CORDERO DO [facility] 12-03-2023 15:35-0500 Diastolic Blood Pressure Non-Invasive 83 mm[Hg] EMIR CORDERO DO [facility] 12-03-2023 15:35-0500 Heart rate 84 /min EMIR CORDERO DO [facility] 12-03-2023 15:35-0500 Respiratory rate 18 /min EMIR CORDERO DO [facility] 12-03-2023 15:35-0500 Systolic Blood Pressure Non-Invasive 138 mm[Hg] EMIR CORDERO DO [facility] 12-03-2023 13:20-0500 Body temperature 97.7 [degF] DR JUDSON RUTLEDGE MD [facility] 12-03-2023 13:20-0500 Diastolic Blood Pressure Non-Invasive 67 mm[Hg] DR JUDSON RUTLEDGE MD [facility] 12-03-2023 13:20-0500 Heart rate 76 /min DR JUDSON RTULEDGE MD [facility] 12-03-2023 13:20-0500 Respiratory rate 18 /min DR JUDSON RUTLEDGE MD [facility] 12-03-2023 13:20-0500 Systolic Blood Pressure Non-Invasive 114 mm[Hg] DR JUDSON RUTLEDGE MD [facility] 12-03-2023 12:01-0500 Body temperature 97.7 [degF] DR JUDSON RUTLEDGE MD [facility] 12-03-2023 12:01-0500 Diastolic Blood Pressure Non-Invasive 64 mm[Hg] DR JUDSON RUTLEDGE MD [facility] 12-03-2023 12:01-0500 Heart rate 66 /min DR JUDSON RUTLEDGE MD [facility] 12-03-2023 12:01-0500 Respiratory rate 16 /min DR JUDSON RUTLEDGE MD [facility] 12-03-2023 12:01-0500 Systolic Blood Pressure Non-Invasive 102 mm[Hg] DR JUDSON RUTLEDGE MD [facility] 12-03-2023 08:06-0500 Heart rate 63 /min DR JUDSON RUTLEDGE MD [facility] 12-03-2023 07:39-0500 Body temperature 97.34 [degF] DR JUDSON RUTLEDGE MD [facility] 12-03-2023 07:39-0500 Diastolic Blood Pressure Non-Invasive 78 mm[Hg] DR JUDSON RUTLEDGE MD [facility] 12-03-2023 07:39-0500 Heart rate 60 /min DR JUDSON RUTLEDGE MD [facility] 12-03-2023 07:39-0500 Respiratory rate 16 /min DR JUDSON RUTLEDGE MD [facility] 12-03-2023 07:39-0500 Systolic Blood Pressure Non-Invasive 127 mm[Hg] DR JUDSON RUTLEDGE MD [facility] 12-03-2023 02:48-0500 Heart rate 64 /min DR JUDSON RUTLEDGE MD [facility] 12-02-2023 18:53-0500 Heart rate 74 /min DR JUDSON RUTLEDGE MD [facility] 12-02-2023 16:04-0500 Heart rate 63 /min DR JUDSON RUTLEDGE MD [facility] 12-02-2023 09:20-0500 Heart rate 61 /min DR JUDSON RUTLEDGE MD [facility] 12-02-2023 04:40-0500 Heart rate 62 /min DR JUDSON RUTLEDGE MD [facility] 12-01-2023 14:02-0500 Body height [address] JUDSON RUTLEDGE MD [facility] 12-01-2023 14:02-0500 Body weight 97.[address] JUDSON RUTLEDGE MD [facility] 12-01-2023 14:02-0500 Body weight 28.07 kg/m2 DR JUDSON RUTLEDGE MD [facility] 12-01-2023 12:35-0500 Respiratory Rate - Anes 9 br/min DR JUDSON RUTLEDGE MD [facility] 12-01-2023 12:30-0500 Respiratory Rate - Anes 10 br/min DR JUDSON RUTLEDGE MD [facility] 12-01-2023 12:25-0500 Respiratory Rate - Anes 6 br/min DR JUDSON RUTLEDGE MD [facility] 12-01-2023 09:19-0500 Body height [address] JUDSON RUTLEDGE MD [facility] 12-01-2023 09:19-0500 Body temperature 98.06 [degF] DR JUDSON RUTLEDGE MD [facility] 12-01-2023 09:19-0500 Body weight 97.[address] JUDSON RUTLEDGE MD [facility] 11-05-2023 09:21-0500 Body height [address] JUDSON RUTLEDGE MD [facility] 11-05-2023 09:21-0500 Body weight 97.[address] JUDSON RUTLEDGE MD [facility] 06-02-2023 10:19-0400 Body height 188 cm Teena Crockett PA-C Work Phone: [facility] 06-02-2023 10:190400 Body temperature 98.01 [degF] Teena Crockett PA-C Work Phone: [facility] 06-02-2023 10:190400 Body weight 96.98 kg Teena Crockett PA-C Work Phone: [facility] 06-02-2023 10:190400 Diastolic blood pressure 70 mm[Hg] Teena Crockett PA-C Work Phone: [facility] 06-02-2023 10:19-0400 Heart rate 72 /min Teena Crockett PA-C Work Phone: [facility] 06-02-2023 10:190400 SaO2% (BldA) [Mass fraction] 96 % Teena Crockett PA-C Work Phone: [facility] 06-02-2023 10:190400 Systolic blood pressure 114 mm[Hg] Teena Crockett PA-C Work Phone: [facility] 05-30-2022 10:52-0400 Body height 188 cm Teena Crockett PA-C Work Phone: [facility] 05-30-2022 10:52-0400 Body temperature 97.59 [degF] Teena Crockett PA-C Work Phone: [facility] 05-30-2022 10:52-0400 Body weight 97.98 kg Teena Crockett PA-C Work Phone: [facility] 05-30-2022 10:52-0400 Diastolic blood pressure 74 mm[Hg] Teena Crockett PA-C Work Phone: [facility] 05-30-2022 10:52-0400 Heart rate 72 /min Teena Crockett PA-C Work Phone: [facility] 05-30-2022 10:52-0400 Respiratory rate 16 /min Teena Crockett PA-C Work Phone: [facility] 05-30-2022 10:52-0400 SaO2% (BldA) [Mass fraction] 98 % Teena Crockett PA-C Work Phone: [facility] 05-30-2022 10:52-0400 Systolic blood pressure 138 mm[Hg] Teena Crockett PA-C Work Phone: [facility] 01-03-2022 12:43-0400 Diastolic Blood Pressure NBP 79 1 SUZANNE DYSON MD [facility] 01-03-2022 12:43-0400 Heart rate 69 /min SUZANNE DYSON MD [facility] 01-03-2022 12:43-0400 Respiratory rate 18 /min SUZANNE DYSON MD [facility] 01-03-2022 12:43-0400 Systolic Blood Pressure NBP 109 1 SUZANNE DYSON MD [facility] 01-03-2022 12:39-0400 Diastolic Blood Pressure NBP 69 1 SUZANNE DYSON MD [facility] 01-03-2022 12:39-0400 Heart rate 62 /min SUZANNE DYSON MD [facility] 01-03-2022 12:39-0400 Respiratory rate 14 /min SUZANNE DYSON MD [facility] 01-03-2022 12:39-0400 Systolic Blood Pressure NBP 96 1 SUZANNE DYSON MD [facility] 01-03-2022 12:36-0400 Diastolic Blood Pressure NBP 59 1 SUZANNE DYSON MD [facility] 01-03-2022 12:36-0400 Heart rate 65 /min SUZANNE DYSON MD [facility] 01-03-2022 12:36-0400 Respiratory rate 17 /min SUZANNE DYSON MD [facility] 01-03-2022 12:36-0400 Systolic Blood Pressure NBP 79 1 SUZANNE DYSON MD [facility] 01-03-2022 11:40-0400 Body height 188 cm SUZANNE DYSON MD [facility] 01-03-2022 11:40-0400 Body temperature 207.86 [degF] SUZANNE DYSON MD [facility] 01-03-2022 11:40-0400 Body weight 97.7 kg SUZANNE DYSON MD [facility] 01-03-2022 11:40-0400 Heart rate 65 /min SUZANNE DYSON MD [facility] Encounters Encounter Date Encounter Type Care Provider Facility Start: 07-30-2024 End: 08-03-2024 Refill Teena Crockett PA-C Work Phone: Urology Comment on above: Refill Request Start: 06-07-2024 End: 06-07-2024 ambulatory DENNIS SHAIKH Facility:[facility] Start: 06-07-2024 End: 06-07-2024 Patient encounter procedure Teena Crockett PA-C Work Phone: Urology Comment on above: Benign prostatic hyp erplasia with urinary frequency (Primary Dx); Elevated prostate specific antigen (PSA) Start: 03-01-2024 End: 03-01-2024 ambulatory ANU DOMINGUEZ Facility:[facility] Start: 03-01-2024 End: 03-01-2024 Patient encounter procedure Teena Crockett PA-C Work Phone: Urology Comment on above: Acute cystitis witho ut hematuria (Primary Dx); Elevated prostate specific antigen (PSA) Start: 01-28-2024 End: 02-02-2024 ambulatory ERASMO LOBO [employer]STING SUPERVISOR-CONTENT ASSISTANT Facility:[facility] Start: 01-28-2024 End: 02-01-2024 Outreach Lab ERASMO LOBO [employer] HARVESTING SUPERVISOR-CONTENT ASSISTANT [facility] Start: 01-19-2024 End: 01-24-2024 ambulatory ERASMO LOBO [employer] HARVESTING SUPERVISOR-CONTENT ASSISTANT Facility:[facility] Start: 01-19-2024 End: 01-23-2024 Outreach Lab ERASMO LOBO [employer] HARVESTING SUPERVISOR-CONTENT ASSISTANT [facility] Start: 12-07-2023 End: 01-12-2024 ambulatory DENNIS SHAIKH DO Facility:[facility] Start: 12-07-2023 End: 01-12-2024 Physical therapy management LENKA DEXTER PA-C [facility] Start: 12-03-2023 End: 12-03-2023 Emergency department patient visit DENNIS SHAIKH DO Facility:[facility] Start: 12-03-2023 End: 12-03-2023 Emergency department patient visit EMIR CORDERO DO [facility] Start: 12-01-2023 End: 12-03-2023 Evaluation and management of inpatient WONGMICK DAVISONPRAVEEN [employer] HARVESTING SUPERVISOR-CONTENT ASSISTANT Facility:[facility] Start: 12-01-2023 End: 12-03-2023 Evaluation and management of inpatient DR JUDSON RUTLEDGE MD [facility] Start: 11-05-2023 End: 11-06-2023 ambulatory DENNIS SHAIKH DO Facility:[facility] Start: 11-05-2023 End: 11-05-[address] JUDSON RUTLEDGE MD [facility] Start: 08-11-2023 End: 08-12-[address] JUDSON RUTLEDGE MD Facility:[facility] Start: 08-11-2023 End: 08-11-[address] JUDSON RUTLEDGE MD [facility] Start: 06-02-2023 End: 06-02-2023 Patient encounter procedure Teena Crockett PA-C Work Phone: Urology Comment on above: Elevated prostate sp ecific antigen (PSA) (Primary Dx); Urinary frequency; Urinary incontinence, unspecified type Start: 05-20-2023 Refill Teena Crockett PA-C Work Phone: Urology Comment on above: Refill Request Start: 03-17-2023 End: 03-22-2023 ambulatory DENNIS SHAIKH DO Facility:[facility] Start: 03-17-2023 End: 03-18-2023 ambulatory DENNIS HAWA DO Facility:[facility] Start: 03-17-2023 End: 03-17-2023 Patient encounter procedure DENNIS Felix HAWA DO [facility] Start: 09-25-2022 End: 10-21-2022 Physical therapy management DENNIS SHAIKH DO [facility] Start: 09-15-2022 Telephone encounter Teena vernonricci PA-C Work Phone: Urology Comment on above: Release Of Medical R ecords Start: 09-12-2022 End: 09-12-2022 Patient encounter procedure DENNIS SHIAKH DO [facility] Start: 06-03-2022 Telephone encounter Teena Mo oney PA-C Work Phone: Urology Comment on above: Results Start: 05-30-2022 End: 05-30-2022 Patient encounter procedure Teena Crockett PA-C Work Phone: Urology Comment on above: Elevated prostate sp ecific antigen (PSA) (Primary Dx) Start: 05-26-2022 ambulatory Teena Crockett PA-C Work Phone: [facility] Start: 05-26-2022 Patient encounter procedure Teena Crockett PA-C Work Phone: Urology Comment on above: appointment info Start: 05-12-2022 Refill Teena Crockett PA-C Work Phone: Urology Comment on above: Refill Request Start: 03-12-2022 End: 03-12-2022 Patient encounter procedure DENNIS Felix HAWA DO [facility] Start: 01-03-2022 End: 01-03-2022 Minor Procedure SUZANNE DYSON MD [facility] Start: 09-11-2021 End: 09-11-2021 Patient encounter procedure DENNIS Elvira HAWA DO [facility] Procedures Date Procedure Procedure Detail Performing Clinician Start: 06-07-2024 Urnls dip stick/tabl et rgnt auto w/o microscopy Teena Crockett PA-C Work Phone: Start: 03-01-2024 Urnls dip stick/tabl et rgnt auto w/o microscopy Teena Crockett PA-C Work Phone: Start: 06-02-2023 Urnls dip stick/tabl et rgnt auto w/o microscopy Teena Crockett PA-C Work Phone: Start: 05-30-2022 Urnls dip stick/tabl et rgnt auto w/o microscopy Teena Crockett PA-C Work Phone: Start: 08-30-2019 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 DENNIS SHAIKH DO Comment on above: LEFT Appendectomy DENNIS SHAIKH DO Arthroplasty of knee DENNIS SHAIKH DO Comment on above: right Colonoscopy DENNIS SHAIKH DO Inguinal hernia (disorder) K KIT HAWA DO Comment on above: right Malignant neoplasm o f skin (disorder) DENNIS SHAIKH DO Comment on above: removal of Prostate biopsy samp le (specimen) DENNIS SHAIKH DO Rotator cuff includi ng muscles and tendons (body structure) DENNIS SHAIKH DO Comment on above: bilateral Stent, device (physi stiven object) DENNIS SHAIKH DO Comment on above: cardiac x 3 Tonsillectomy DENNIS SHAIKH DO Plan of Treatment Date Care Activity Detail Author Start: 06-06-2025 End: 06-06-2025 Patient encounter procedure 06/06/2025 9:00 AM EDT Office Visit Urology [address] [place] [address] Teena Crockett PA-C [address] [place], [place] [id number] Annual Urology Comment on above: Annual Start: 06-12-2024 Covid-19 Vaccine ( season) Covid-19 Vaccine () [facility] Start: 06-12-2024 Influenza vaccination Influenza Vacc ine (#1) [facility] Start: 06-07-2024 End: 06-07-2024 Patient encounter procedure 06/07/2024 9:00 AM EDT Office Visit Urology [address] [place] [address] Teena Crockett PA-C [address] [place], [place] [id number] Annual Urology Comment on above: Annual Start: 06-02-2024 End: 08-02-2024 Prostate specific Ag [Mass/volume] in Serum or Plasma PSA/PROSTSPECAG DIAG Lab Routine Elevated prostate specific antigen (PSA) Expected: 06/02/2024 (Approximate), Expires: 08/02/2024 [facility] Work Phone: Comment on above: Expected: 06/02/2024 (Approximate), Expires: 08/02/2024 Start: 03-20-2024 Urine microalbumin profile DTaP,Tdap,Td Vaccine (2 - Td or Tdap) [facility] Start: 10-12-2023 Advance Directive Discussion Advance Directive Discussion [facility] Start: 10-12-2023 Behavioral Health Screening Behavioral Health Screening [facility] Start: 06-12-2023 Covid-19 Vaccine () Covid-19 Vaccine () [facility] Start: 06-12-2023 Influenza vaccination INFLUENZA (#1) [facility] Start: 05-30-2023 End: 07-30-2023 Prostate specific Ag [Mass/volume] in Serum or Plasma PSA/PROSTSPECAG DIAG Lab Routine Elevated prostate specific antigen (PSA) Expected: 05/30/2023, Expires: 07/30/2023 [facility] Work Phone: Comment on above: Expected: 05/30/2023 , Expires: 07/30/2023 Start: 12-13-2022 COVID-19 VACCINE (6 - Moderna series) COVID-19 VACCINE (6 - Moderna series) [facility] Start: 10-12-2022 ADVANCE DIRECTIVE DISCUSSION ADVANCE DIRECTIVE DISCUSSION [facility] Start: 10-12-2022 DEPRESSION ASSESSMENT DEPRESSION ASS ESSMENT [facility] Start: 06-12-2022 Influenza vaccination INFLUENZA (#1) [facility] Start: 05-30-2022 End: 07-30-2022 ISOPSA ASSAY FOR UROLOGY USE ONLY [facility] Work Phone: Comment on above: Expected: 05/30/2022 , Expires: 07/30/2022 Start: 05-27-2022 End: 07-27-2022 Prostate specific Ag [Mass/volume] in Serum or Plasma [facility] Work Phone: Comment on above: Expected: 05/27/2022 , Expires: 07/27/2022 Start: 05-09-2022 COVID-19 VACCINE (5 - Booster for Moderna series) COVID-19 VACCINE (5 - Booster for Moderna series) [facility] Start: 05-09-2022 COVID-19 VACCINE (5 - Moderna series) COVID-19 VACCINE (5 - Moderna series) [facility] Start: 12-26-2021 COVID-19 VACCINE (4 - Booster for Moderna series) COVID-19 VACCINE (4 - Booster for Moderna series) [facility] Start: 10-12-2021 ADVANCE DIRECTIVE DISCUSSION ADVANCE DIRECTIVE DISCUSSION [facility] Start: 10-12-2021 DEPRESSION ASSESSMENT DEPRESSION ASS ESSMENT [facility] Start: 2020 RSV Vaccine (1 - 1-d ose 75+ series) RSV Vaccine (1 - 1-dose 75+ series) [facility] Start: 10-12-2012 PNEUMOCOCCAL: 65+ (2 - PCV) PNEUMOCOCCAL: 65+ (2 - PCV) [facility] Start: 2005 RSV Vaccine (1 - 1-d ose 60+ series) RSV Vaccine (1 - 1-dose 60+ series) [facility] Start: 1995 SHINGRIX VACCINE (1 of 2) SHINGRIX VACCINE (1 of 2) [facility] Start: 1990 DIABET[facility]CREEN [facility] Start: 1990 Diabetes Screening Diabetes Screenin g [facility] Start: 1964 Urine microalbumin profile DTAP,TDAP,TD (1 - Tdap) [facility] Start: 1963 Anxiety Screening Anxiety Screening [facility] Start: 1963 Depression Screening Depression Scre ening [facility] Start: 1963 HEPATITIS C SCREENING HEPATITIS C [facility] Start: 1963 Hepatitis C screening Hepatitis C [facility] Start: 1957 Adult depression screening assessment DEPRESSION SCREENING [facility] Ananya post-voiding residual urine&/bladder cap US MSR POST-VOID RESID URINE Procedures Routine Elevated prostate specific antigen (PSA) Ordered: 06/02/2023 [facility] Work Phone: Comment on above: Ordered: 06/02/2023 POST VOID RESIDUAL POST VOID RES IDUAL Procedures Routine Elevated prostate specific antigen (PSA) Ordered: 05/30/2022 [facility] Work Phone: Comment on above: Ordered: 05/30/2022 POST VOID RESIDUAL POST VOID RES IDUAL Procedures Routine Ordered: 06/07/2024 [facility] Work Phone: Comment on above: Ordered: 06/07/2024 UA DIP, URINE (POC) UA DIP, URIN E (POC) Lab Routine Elevated prostate specific antigen (PSA) Urinary frequency Urinary incontinence, unspecified type Ordered: 06/02/2023 [facility] Work Phone: Comment on above: Ordered: 06/02/2023 [facility] Immunizations Immunization Date Immunization Notes Care Provider Ashli mccann 09-16-2023 influenza, high dose seasonal, preservative-free; Translations: [Fluad Quadrivalent PF ] DR JUDSON RUTLEDGE MD [facility] 09-16-2023 influenza virus vacc ine, unspecified formulation Teena Crockett PA-C Work Phone: [facility] 09-12-2022 influenza, high dose seasonal, preservative-free DENNIS SHAIKH DO [facility] 08-15-2022 COVID-19, mRNA, LNP- S, bivalent booster, PF, 30 mcg/0.3 mL dose; Translations: [Pfizer-BioNTech COVID-19 (12y+) Bivalent Booster Vaccine PF] DENNIS SHAIKH DO [facility] 08-15-2022 SARSCoV2 mRNA([id number]+)biv al vac; Translations: [Pfizer-BioNTech COVID-19 (12y+) Bivalent Booster Vaccine PF] DR JUDSON RUTLEDGE MD [facility] 03-14-2022 COVID-19, mRNA, LNP- S, PF, 100 mcg or 50 mcg dose; Translations: [Moderna COVID-19 Vaccine] DENNIS SHAIKH DO [facility] 09-11-2021 influenza, injectabl e, quadrivalent, contains preservative; Translations: [Fluarix PF Quadrivalent ] DENNIS SHAIKH DO [facility] 08-28-2021 COVID-19, mRNA, LNP- S, PF, 100 mcg/ 0.5 mL dose; Translations: [Moderna COVID-19 Vaccine] DENNIS SHAIKH DO [facility] 12-18-2020 COVID-19, mRNA, LNP- S, PF, 100 mcg/ 0.5 mL dose; Translations: [Moderna COVID-19 Vaccine] DENNIS SHAIKH DO [facility] 11-20-2020 COVID-19, mRNA, LNP- S, PF, 100 mcg/ 0.5 mL dose; Translations: [Moderna COVID-19 Vaccine] DENNIS HAWA DO [facility] 08-21-2020 influenza, injectabl e, quadrivalent, preservative free; Translations: [Fluarix PF Quadrivalent ] DENNIS SHAIKH DO [facility] 03-03-2019 pneumococcal conjuga te vaccine, 13 valent DENNIS HAWA DO [facility] 03-20-2014 tetanus toxoid, redu daniel diphtheria toxoid, and acellular pertussis vaccine, adsorbed DENNIS HAWA DO [facility] 10-12-2011 pneumococcal polysaccharide vaccine, 23 valent Teena Crockett PA-C Work Phone: [facility] 09-24-2011 pneumococcal polysaccharide vaccine, 23 valent DENNIS SHAIKH DO [facility] Payers Date Payer Category Payer Medicare [id number] 2017 Medicare [employer] [place] [place] [id number] 2017-Present [phone] [address] [place] [address] O [id number] 2017 Unknown [id number] 1945 Unknown [id number] 1945 Unknown [id number] 1945 Unknown [id number] 1945 Unknown [id number] 1945 Unknown [id number] 1945 Unknown [id number] 1945 Unknown [id number] 1945 Unknown [id number] 1945 Unknown [id number] 1945 Unknown [id number] Social History Date Type Detail Facility Start: 08-19-2019 End: 06-02-2023 Ex-smoker (finding) [facility] Start: 1945 Sex Assigned At Male A [facility] History of tobacco use Current smoker [facility] Work Phone: Start: 09-20-2021 End: 06-02-2023 Tobacco use and exposure Smokeless tobacco non-user [facility] Work Phone: Start: 09-20-2021 End: 06-07-2024 Alcohol intake Current drinker of alcohol (finding) [facility] Start: 09-20-2021 History SDOH Alcohol Comment 2-3 times a week [facility] Start: 05-30-2022 End: 06-02-2023 Alcohol intake [facility] Start: 05-20-2022 End: 05-30-2022 Exposure to SARS-CoV-2 (event) Not sure [facility] Start: 05-30-2022 End: 06-02-2023 Tobacco use panel [facility] National Score (1-10 0), lower number is lower risk 67 [facility] Start: 10-07-2020 Gender identity Identifies as male gender (finding) [facility] Start: 10-07-2020 Sexual orientation Heterosexual (kerwin barba) [facility] Functional Status Date Assessment Result Facility 12-07-2023 Functional Status Objective: Observation: Surgical dressing intact with minimal to no drainage visable. Bruising surrounding R knee and R lower leg. LE Strength/ROM: Hip PROM: Left [WNL], Right [WNL] AROM L knee: flexion [130 deg], extension [0 deg] AROM R knee: flexion [84 deg], extension [-10] PROM R knee: flexion [NT], extension [-5 deg] Right hip flexion [4/5], abduction [4/5], adduction [4+/5], extension [4/5], knee flexion [3-/5], knee extension [3-/5], ankle DF [5/5], PF [5/5] Left hip flexion [5/5], abduction [5/5], adduction [5/5], extension [5/5], knee flexion [5/5], knee extension [5/5], ankle DF [5/5], PF [5/5] 30 second sit to stand test: Unable to perform sit to stand from standard chair without use of UE support Balance: Semi-tandem stance: Left [30 seconds] Right [30 seconds] Tandem stance: Left [30 seconds] Right [27 seconds] Single leg stance: NT Gait: Pt ambulating with FWW with R antalgic gait pattern. Stairs: Pt ascending/descending stairs with step-to pattern with rail or walker. FOTO Score: 54/100 [facility] 12-03-2023 Functional Status Independent [facility] 12-03-2023 [facility] Functional Status Awake, Watching TV [facility] 12-03-2023 Functional Status Independent Maura [facility] 12-03-2023 Functional Status bilateral knee high rem kenia/off [facility] 12-03-2023 Functional Status Door open, Room check performed [facility] 12-03-2023 Functional Status Maura [facility] 12-02-2023 Functional Status Maura [facility] 12-02-2023 Functional Status Maura [facility] 12-02-2023 Functional Status [facility] 12-01-2023 Functional Status Minimum assistance [facility] 12-01-2023 Functional Status Maura [facility] 12-01-2023 Functional Status [facility]-01-[facility]23 [facility] Status Single level home [facility] 11-05-2023 Functional Status Sensory Defici ts Hearing deficit, left ear, Hearing deficit, right ear [facility] 09-25-2022 Functional Status Home Living Ad ditional Information OBJECTIVE Vitals: BP 131/84 Posture: forward head posture Gait: WNL Transfers: WNL Sensation: no abnormalities or asymmetries Reflexes: NT Edema: none AROM: cervical flexion - WNL, extension - severe restrictions, lat flexion - severe restriction bilat, rotation to L - moderate restriction, rotation to R - mild restriction PROM: mod restriction with rotation, muscle guarding present intermittently deep cervical flexor endurance: 3 sec [facility] Mental Status Date Assessment Result Facility 12-03-2023 Mental Status Orientation Oriented x 4 [facility] 12-03-2023 [facility] 12-02-2023 [facility] 12-02-2023 [facility] Status [facility] 12-02-2023 Mental Status [facility] Clinical Notes 01-03-2022 to 08-01-2024 Telephone Encounter - Gustavo Phan RN - 08/01/2024 9:06 AM EDTTelephone Encounter - Gustavo Phan RN - 08/01/2024 9:06 AM EDTPatient JackLanaJOHN - 06/07/2024 8:54 AM EDT Note Date & Type Note Facility 08-01-2024 Telephone encounter Note [facility] 06/07/24 Patient phones requesting refills as follows: Requested Prescriptions Pending Prescriptions Disp Refills tamsulosin (FLOMAX) 0.4 mg [Pharmacy Med Name: TAMSULOSIN HCL 0.4 MG CAPSULE] 90 capsule 3 Sig: take 1 capsule by mouth every day Please review and advise. Gustavo Phan RN [facility] 08-01-2024 Miscellaneous Notes [facility] 06/07/24 Patient phones requesting refills as follows: Requested Prescriptions Pending Prescriptions Disp Refills tamsulosin (FLOMAX) 0.4 mg [Pharmacy Med Name: TAMSULOSIN HCL 0.4 MG CAPSULE] 90 capsule 3 Sig: take 1 capsule by mouth every day Please review and advise. Gustavo Phan RN documented in this encounter [facility] 06-07-2024 Instructions Teena Crockett PA-C - 06/07/2024 9:03 AM EDT > 1 year Appt w/ B. JABARI Crockett, SAQIB ENCARNACION for annual follow-up and refills. documented in this encounter [facility] 06-07-2024 Note HNO ID: [id number] Author: TEENA CROCKETT PA-C Service: ? Author Type: Physician Infantry Unit Leader Type: Progress Notes Filed: 06/07/2024 09:55 Note Text: [facility] [place] [facility]IENT [facility] NOTE Some elements copied from his previous note, which have been updated where appropriate, and all reflect current medical decision making from date of this visit. NAME: Lazaro Amanda CHIEF COMPLAINT: Annual BPH Follow -up and refills HISTORY OF PRESENT ILLNESS: Lazaro Amanda is a 78 year old male established patient following up for Annual BPH Follow -up and refills The patient reports he is doing quite well no new LUTs and medication working well No Longer following PSA Will call office when Rx needs refilled ISO PSA 3% LUTS: Non new LUTs Other symptoms: ED - no LABS: No results found for: HCT PSA (ng/mL) Date Value 05/27/2022 9.07 10/02/2020 8.30 07/15/2017 7.58 06/24/2016 8.01 12/24/2015 8.47 PSA Screening (ng/mL) Date Value 05/28/2023 8.45 No results found for: TESTOST PSA (ng/mL) Date Value 05/27/2022 9.07 10/02/2020 8.30 07/15/2017 7.58 06/24/2016 8.01 12/24/2015 8.47 PSA Screening (ng/mL) Date Value 05/28/2023 8.45 No results found for: CREAT MEDICATIONS: tamsulosin (FLOMAX) 0.4 mg Take 1 capsule by mouth once daily. losartan (COZAAR) 50 mg tablet Take 50 mg by mouth once daily. aspirin 81 mg ORAL chewable tablet Take 1 tablet by mouth once daily. clopidogrel (PLAVIX) 75 mg tablet Take by mouth once daily. atorvastatin (LIPITOR) 80 mg tablet Take by mouth once daily. metoprolol tartrate 25 mg ORAL tablet Take by mouth once daily. sertraline hcl(ZOLOFT 100 MG TAB) Take 100 mg by mouth once daily. iv contrast (will be provided with radiology test) MRI Prostate Inject, intravenously, once for 1 dose. No IV access, insert saline lock prior to the beginning of sedation, infusion, injection of imaging exam. Discontinue saline lock post exam. If Pt. has a central line or IVAD, may access for administration according to line specific nursing protocol. Once exam is complete flush line and de-access according to line specific nursing protocol in the MR contrast administration guidelines link. lisinopril (ZESTRIL, PRINIVIL) 10 mg tablet Take 10 mg by mouth once daily. PAST MEDICAL HISTORY: PAST MEDICAL HISTORY 03/01/2024: Acute cystitis without hematuria No date: Depression No date: Elevated prostate specific antigen (PSA) No date: Essential hypertension 08/13/2010: Heart attack (HCC) No date: History of BPH 06/02/2023: Urinary incontinence, unspecified type REVIEW OF SYSTEMS: GENERAL: No fever, chills, weight loss, or fatigue. All other systems reviewed and are negative PHYSICAL EXAMINATION: Blood pressure 126/68, pulse 76, temperature 36.4 ?C (97.5 ?F), temperature source Temporal, resp. rate 14, height 188 cm (6' 2 ), weight 95.7 kg (211 lb), SpO2 98%. GENERAL: WNL nutrition, no deformities, healthy appearing PROBLEM LIST REVIEW: Yes LABS: Results for orders placed or performed in visit on 03/01/24 UA DIP, URINE (POC) Result Value Ref Range GLUCOSE UA (POCT) Negative Negative mg/dL BILIRUBIN UA (POCT) Negative Negative KETONE UA (POCT) Negative Negative mg/dL SPECIFIC GRAVITY UA (POCT) >=1.030 1.005 - 1.030 HEMOGLOBIN/BLOOD UA (POCT) Trace-intact (A) Negative PH UA (POCT) 6.0 4.5 - 8.0 PROTEIN UA (POCT) Negative Negative mg/dL UROBILINOGEN UA (POCT) 0.2 Normal E.U./dL NITRITE UA (POCT) Negative Negative LEUKOCYTES UA (POCT) Small (A) Negative COLOR UA (POCT) Dark yellow CLARITY UA (POCT) Clear PROCEDURES: PVR: 0 ml IMPRESSION/PLAN: 1. Benign prostatic hyperplasia with urinary frequency - ICD9: 600.01, 788.41, ICD10: N40.1, R35.0 > No longer follows PSA > Refills not due will call Chronic stable, Medication - Renewed > 1 year Appt w/ B. JABARI Crockett, ALYSHA, SAQIB for annual follow-up and refills. JABARI Polo, ALYSHA, SAQIB [facility] 06-07-2024 History of Presen t illness Narrative Images from the original note were not included. [facility] [place] [facility] PATIENT CLIN[facility] NOTE Some elements copied from his previous note, which have been updated where appropriate, and all reflect current medical decision making from date of this visit. NAME: Lazaro Amanda CHIEF COMPLAINT: Annual BPH Follow -up and refills HISTORY OF PRESENT ILLNESS: Lazaro Amanda is a 78 year old male established patient following up for Annual BPH Follow -up and refills The patient reports he is doing quite well no new LUTs and medication working well No Longer following PSA Will call office when Rx needs refilled ISO PSA 3% LUTS: Non new LUTs Other symptoms: ED - no LABS: No results found for: HCT PSA (ng/mL) Date Value 05/27/2022 9.07 10/02/2020 8.30 07/15/2017 7.58 06/24/2016 8.01 12/24/2015 8.47 PSA Screening (ng/mL) Date Value 05/28/2023 8.45 No results found for: TESTOST PSA (ng/mL) Date Value 05/27/2022 9.07 10/02/2020 8.30 07/15/2017 7.58 06/24/2016 8.01 12/24/2015 8.47 PSA Screening (ng/mL) Date Value 05/28/2023 8.45 No results found for: CREAT MEDICATIONS: tamsulosin (FLOMAX) 0.4 mg Take 1 capsule by mouth once daily. losartan (COZAAR) 50 mg tablet Take 50 mg by mouth once daily. aspirin 81 mg ORAL chewable tablet Take 1 tablet by mouth once daily. clopidogrel (PLAVIX) 75 mg tablet Take by mouth once daily. atorvastatin (LIPITOR) 80 mg tablet Take by mouth once daily. metoprolol tartrate 25 mg ORAL tablet Take by mouth once daily. sertraline hcl(ZOLOFT 100 MG TAB) Take 100 mg by mouth once daily. iv contrast (will be provided with radiology test) MRI Prostate Inject, intravenously, once for 1 dose. No IV access, insert saline lock prior to the beginning of sedation, infusion, injection of imaging exam. Discontinue saline lock post exam. If Pt. has a central line or IVAD, may access for administration according to line specific nursing protocol. Once exam is complete flush line and de-access according to line specific nursing protocol in the MR contrast administration guidelines link. lisinopril (ZESTRIL, PRINIVIL) 10 mg tablet Take 10 mg by mouth once daily. PAST MEDICAL HISTORY: PAST MEDICAL HISTORY 03/01/2024: Acute cystitis without hematuria No date: Depression No date: Elevated prostate specific antigen (PSA) No date: Essential hypertension 08/13/2010: Heart attack (HCC) No date: History of BPH 06/02/2023: Urinary incontinence, unspecified type REVIEW OF SYSTEMS: GENERAL: No fever, chills, weight loss, or fatigue. All other systems reviewed and are negative PHYSICAL EXAMINATION: Blood pressure 126/68, pulse 76, temperature 36.4 C (97.5 F), temperature source Temporal, resp. rate 14, height 188 cm (6' 2 ), weight 95.7 kg (211 lb), SpO2 98%. GENERAL: WNL nutrition, no deformities, healthy appearing PROBLEM LIST REVIEW: Yes LABS: Results for orders placed or performed in visit on 03/01/24 UA DIP, URINE (POC) Result Value Ref Range GLUCOSE UA (POCT) Negative Negative mg/dL BILIRUBIN UA (POCT) Negative Negative KETONE UA (POCT) Negative Negative mg/dL SPECIFIC GRAVITY UA (POCT) >=1.030 1.005 - 1.030 HEMOGLOBIN/BLOOD UA (POCT) Trace-intact (A) Negative PH UA (POCT) 6.0 4.5 - 8.0 PROTEIN UA (POCT) Negative Negative mg/dL UROBILINOGEN UA (POCT) 0.2 Normal E.U./dL NITRITE UA (POCT) Negative Negative LEUKOCYTES UA (POCT) Small (A) Negative COLOR UA (POCT) Dark yellow CLARITY UA (POCT) Clear PROCEDURES: PVR: 0 ml IMPRESSION/PLAN: 1. Benign prostatic hyperplasia with urinary frequency - ICD9: 600.01, 788.41, ICD10: N40.1, R35.0 > No longer follows PSA > Refills not due will call Chronic stable, Medication - Renewed > 1 year Appt w/ B. JABARI Crockett MT, PA-C for annual follow-up and refills. JABARI Polo MT, PA-C Verified name and date of . CC Post Void Residual HPI: Lazaro Amanda is a 78 year old male. The patient is here now for an appointment with JABARI Polo MT, PA-COV. Procedure: Explained procedure to patient and verbalizes understanding. Performed a PVR. Patient urinated and instructed to empty bladder as much as possible just prior to having PVR done using bladder ultrasound scanner. Results of scan: 0 mL The patient tolerated the procedure well. Plan: Appointment with Teena. documented in this encounter [facility] 06-07-2024 Note HNO ID: [id number] Author: LANA YARBROUGH LPN Service: ? Author Type: LICENSED NURSE Type: Progress Notes Filed: 06/07/2024 09:55 Note Text: Verified name and date of . CC Post Void Residual HPI: Lazaro Amanda is a 78 year old male. The patient is here now for an appointment with JABARI Polo MT, PA-COV. Procedure: Explained procedure to patient and verbalizes understanding. Performed a PVR. Patient urinated and instructed to empty bladder as much as possible just prior to having PVR done using bladder ultrasound scanner. Results of scan: 0 mL The patient tolerated the procedure well. Plan: Appointment with Teena. [facility] 03-01-2024 Note HNO ID: [id number] Author: TEENA CROCKETT PA-C Service: ? Author Type: Physician Infantry Unit Leader Type: Progress Notes Filed: 03/01/2024 18:50 Note Text: [facility] [place] [facility] PATIENT [facility]IN[facility] NOTE Some elements copied from his previous note, which have been updated where appropriate, and all reflect current medical decision making from date of this visit. SERVICE DATE: March 01, 2024 NAME: Lazaro Amanda CHIEF COMPLAINT: Urinary Tract Infection follow-up HISTORY OF PRESENT ILLNESS: Lazaro Amanda is a 78 year old male an established patient following up for Urinary Tract Infection The patient reports he had a week of chills and low grade fever 100.0* had urine culture that showed Klebsiella on 01/19/2024 And new urine culture on 01/28/2024 was negative after full course of Bactrim Doing well now, will keep his annual follow-up for PSA and prostate check LUTS: None LABS: PSA (ng/mL) Date Value 05/27/2022 9.07 10/02/2020 8.30 07/15/2017 7.58 06/24/2016 8.01 PSA Screening (ng/mL) Date Value 05/28/2023 8.45 No results found for: CREAT No results found for: TESTOST No results found for: HCT PSA (ng/mL) Date Value 05/27/2022 9.07 10/02/2020 8.30 07/15/2017 7.58 06/24/2016 8.01 PSA Screening (ng/mL) Date Value 05/28/2023 8.45 MEDICATIONS: tamsulosin (FLOMAX) 0.4 mg Take 1 capsule by mouth once daily. losartan (COZAAR) 50 mg tablet Take 50 mg by mouth once daily. iv contrast (will be provided with radiology test) MRI Prostate Inject, intravenously, once for 1 dose. No IV access, insert saline lock prior to the beginning of sedation, infusion, injection of imaging exam. Discontinue saline lock post exam. If Pt. has a central line or IVAD, may access for administration according to line specific nursing protocol. Once exam is complete flush line and de-access according to line specific nursing protocol in the MR contrast administration guidelines link. aspirin 81 mg ORAL chewable tablet Take 1 tablet by mouth once daily. clopidogrel (PLAVIX) 75 mg tablet take one tablet daily atorvastatin (LIPITOR) 80 mg tablet take one tablet daily metoprolol tartrate 25 mg ORAL tablet take one tablet twice daily sertraline hcl(ZOLOFT 100 MG TAB) Take one(1) tablet daily. lisinopril (ZESTRIL, PRINIVIL) 10 mg tablet Take 10 mg by mouth once daily. PAST MEDICAL HISTORY: PAST MEDICAL HISTORY Diagnosis Date Depression Elevated prostate specific antigen (PSA) Essential hypertension Heart attack (HCC) 08/13/2010 History of BPH PAST SURGICAL HISTORY: PAST SURGICAL HISTORY Procedure Laterality Date PAST SURGICAL HISTORY OF Right 12/01/2023 knee replacement PAST SURGICAL HISTORY OF rotator cuff repair PAST SURGICAL HISTORY OF Left 2018 Total knee replacement STENT PLACEMENT three stents/cardiac REVIEW OF SYSTEMS: GENERAL: No fever, chills, weight loss, or fatigue. All other systems reviewed and are negative PHYSICAL EXAMINATION: Blood pressure 102/58, weight 94.6 kg (208 lb 9.6 oz), SpO2 96%. GENERAL: WNL nutrition, no deformities, healthy appearing PROBLEM LIST REVIEW: Yes LABS: Results for orders placed or performed in visit on 03/01/24 UA DIP, URINE (POC) Result Value Ref Range GLUCOSE UA (POCT) Negative Negative mg/dL BILIRUBIN UA (POCT) Negative Negative KETONE UA (POCT) Negative Negative mg/dL SPECIFIC GRAVITY UA (POCT) >=1.030 1.005 - 1.030 HEMOGLOBIN/BLOOD UA (POCT) Trace-intact (A) Negative PH UA (POCT) 6.0 4.5 - 8.0 PROTEIN UA (POCT) Negative Negative mg/dL UROBILINOGEN UA (POCT) 0.2 Normal E.U./dL NITRITE UA (POCT) Negative Negative LEUKOCYTES UA (POCT) Small (A) Negative COLOR UA (POCT) Dark yellow CLARITY UA (POCT) Clear Urine Culture - 01/28/2024 - No Growth PROCEDURES: PVR - 3 ml IMPRESSION/PLAN: 78 year old male with 1. Acute cystitis without hematuria - ICD9: 595.0, ICD10: N30.00 (primary diagnosis) 2. Elevated prostate specific antigen (PSA) - ICD9: 790.93, ICD10: R97.20 > Acute Condition: Resolved needs monitored with labs and follow-up visits > Chronic Conditions: Stable and monitored with labs and follow-up visits > Continue with follow-up in May as planned JABARI Polo, MT, PA-C [facility] 03-01-2024 History of Presen t illness Narrative Images from the original note were not included. [facility] NOTE Some elements copied from his previous note, which have been updated where appropriate, and all reflect current medical decision making from date of this visit. SERVICE DATE: March 01, 2024 NAME: Lazaro Amanda CHIEF COMPLAINT: Urinary Tract Infection follow-up HISTORY OF PRESENT ILLNESS: Lazaro Amanda is a 78 year old male an established patient following up for Urinary Tract Infection The patient reports he had a week of chills and low grade fever 100.0* had urine culture that showed Klebsiella on 01/19/2024 And new urine culture on 01/28/2024 was negative after full course of Bactrim Doing well now, will keep his annual follow-up for PSA and prostate check LUTS: None LABS: PSA (ng/mL) Date Value 05/27/2022 9.07 10/02/2020 8.30 07/15/2017 7.58 06/24/2016 8.01 PSA Screening (ng/mL) Date Value 05/28/2023 8.45 No results found for: CREAT No results found for: TESTOST No results found for: HCT PSA (ng/mL) Date Value 05/27/2022 9.07 10/02/2020 8.30 07/15/2017 7.58 06/24/2016 8.01 PSA Screening (ng/mL) Date Value 05/28/2023 8.45 MEDICATIONS: tamsulosin (FLOMAX) 0.4 mg Take 1 capsule by mouth once daily. losartan (COZAAR) 50 mg tablet Take 50 mg by mouth once daily. iv contrast (will be provided with radiology test) MRI Prostate Inject, intravenously, once for 1 dose. No IV access, insert saline lock prior to the beginning of sedation, infusion, injection of imaging exam. Discontinue saline lock post exam. If Pt. has a central line or IVAD, may access for administration according to line specific nursing protocol. Once exam is complete flush line and de-access according to line specific nursing protocol in the MR contrast administration guidelines link. aspirin 81 mg ORAL chewable tablet Take 1 tablet by mouth once daily. clopidogrel (PLAVIX) 75 mg tablet take one tablet daily atorvastatin (LIPITOR) 80 mg tablet take one tablet daily metoprolol tartrate 25 mg ORAL tablet take one tablet twice daily sertraline hcl(ZOLOFT 100 MG TAB) Take one(1) tablet daily. lisinopril (ZESTRIL, PRINIVIL) 10 mg tablet Take 10 mg by mouth once daily. PAST MEDICAL HISTORY: PAST MEDICAL HISTORY Diagnosis Date Depression Elevated prostate specific antigen (PSA) Essential hypertension Heart attack (HCC) 08/13/2010 History of BPH PAST SURGICAL HISTORY: PAST SURGICAL HISTORY Procedure Laterality Date PAST SURGICAL HISTORY OF Right 12/01/2023 knee replacement PAST SURGICAL HISTORY OF rotator cuff repair PAST SURGICAL HISTORY OF Left 2019 Total knee replacement STENT PLACEMENT three stents/cardiac REVIEW OF SYSTEMS: GENERAL: No fever, chills, weight loss, or fatigue. All other systems reviewed and are negative PHYSICAL EXAMINATION: Blood pressure 102/58, weight 94.6 kg (208 lb 9.6 oz), SpO2 96%. GENERAL: WNL nutrition, no deformities, healthy appearing PROBLEM LIST REVIEW: Yes LABS: Results for orders placed or performed in visit on 03/01/24 UA DIP, URINE (POC) Result Value Ref Range GLUCOSE UA (POCT) Negative Negative mg/dL BILIRUBIN UA (POCT) Negative Negative KETONE UA (POCT) Negative Negative mg/dL SPECIFIC GRAVITY UA (POCT) >=1.030 1.005 - 1.030 HEMOGLOBIN/BLOOD UA (POCT) Trace-intact (A) Negative PH UA (POCT) 6.0 4.5 - 8.0 PROTEIN UA (POCT) Negative Negative mg/dL UROBILINOGEN UA (POCT) 0.2 Normal E.U./dL NITRITE UA (POCT) Negative Negative LEUKOCYTES UA (POCT) Small (A) Negative COLOR UA (POCT) Dark yellow CLARITY UA (POCT) Clear Urine Culture - 01/28/2024 - No Growth PROCEDURES: PVR - 3 ml IMPRESSION/PLAN: 78 year old male with 1. Acute cystitis without hematuria - ICD9: 595.0, ICD10: N30.00 (primary diagnosis) 2. Elevated prostate specific antigen (PSA) - ICD9: 790.93, ICD10: R97.20 > Acute Condition: Resolved needs monitored with labs and follow-up visits > Chronic Conditions: Stable and monitored with labs and follow-up visits > Continue with follow-up in May as planned JABARI Polo, MT, PANoelle Patient's post-void bladder scan: 3 ML. Ceci Oswald MA documented in this encounter [facility] 03-01-2024 Note HNO ID: [id number] Author: CECI OSWALD MA Service: ? Author Type: Gasoline Service Attendant Type: Progress Notes Filed: 03/01/2024 18:50 Note Text: Patient's post-void bladder scan: 3 ML. Ceci Oswald MA [facility] 01-30-2024 Note . MICRO - Microbiology PROCEDURE: Urine Culture [*1] SOURCE: Urine, Clean Catch BODY SITE: COLLECTED DATE/TIME: 01/28/2024 16:50 EDT RECEIVED DATE/TIME: 01/28/2024 19:31 EDT START DATE/TIME: 01/28/2024 19:31 EDT FREE TEXT SOURCE: FINAL REPORTS Final Report [] Verified Date/Time/Personnel: 01/30/2024 07:36 EDT No growth at 48 hours. PRELIMINARY REPORTS Preliminary Report [] Verified Date/Time/Personnel: 01/29/2024 10:58 EDT No growth to date Performing Locations *1: This test was performed at: [facility], [address] [place] [address], [facility] , [facility] ([place]) 01-28-2024 Note . MICRO - Microbiology PROCEDURE: Acid Fast Bacilli Culture w Stain if Ind [*1] SOURCE: Tissue BODY SITE: Knee R COLLECTED DATE/TIME: 12/01/2023 10:52 EST RECEIVED DATE/TIME: 12/01/2023 16:44 EST START DATE/TIME: 12/01/2023 16:44 EST FREE TEXT SOURCE: SUPRAPATELLAR POUCH FINAL REPORTS Final Report [] Verified Date/Time/Personnel: 01/28/2024 08:10 EDT No growth of Acid Fast Bacilli PRELIMINARY REPORTS Preliminary Report [] Verified Date/Time/Personnel: 01/14/2024 08:27 EDT No growth of Acid Fast Bacilli to date. Final report to follow at 8 weeks. STAINS AFS [] Verified Date/Time/Personnel: 12/02/2023 13:23 EST Acid Fast Smear from Concentrated Specimen: Negative Performing Locations *1: This test was performed at: [address], [facility] , [facility] ([facility] 01-28-2024 Note . MICRO - Microbiology PROCEDURE: Acid Fast Bacilli Culture w Stain if Ind [*1] SOURCE: Tissue BODY SITE: Knee R COLLECTED DATE/TIME: 12/01/2023 11:00 EST RECEIVED DATE/TIME: 12/01/2023 16:44 EST START DATE/TIME: 12/01/2023 16:44 EST FREE TEXT SOURCE: FEMORAL MEMBRANE FINAL REPORTS Final Report [] Verified Date/Time/Personnel: 01/28/2024 08:10 EDT No growth of Acid Fast Bacilli PRELIMINARY REPORTS Preliminary Report [] Verified Date/Time/Personnel: 01/14/2024 08:27 EDT No growth of Acid Fast Bacilli to date. Final report to follow at 8 weeks. STAINS AFS [] Verified Date/Time/Personnel: 12/02/2023 13:23 EST Acid Fast Smear from Concentrated Specimen: Negative Performing Locations *1: This test was performed at: [address], [facility]- , [facility] ([place]) 01-28-2024 Note . MICRO - Microbiology PROCEDURE: Acid Fast Bacilli Culture w Stain if Ind [*1] SOURCE: Tissue BODY SITE: Knee R COLLECTED DATE/TIME: 12/01/2023 11:00 EST RECEIVED DATE/TIME: 12/01/2023 16:44 EST START DATE/TIME: 12/01/2023 16:44 EST FREE TEXT SOURCE: TIBIAL MEMBRANE FINAL REPORTS Final Report [] Verified Date/Time/Personnel: 01/28/2024 08:10 EDT No growth of Acid Fast Bacilli PRELIMINARY REPORTS Preliminary Report [] Verified Date/Time/Personnel: 01/14/2024 08:27 EDT No growth of Acid Fast Bacilli to date. Final report to follow at 8 weeks. STAINS AFS [] Verified Date/Time/Personnel: 12/02/2023 13:23 EST Acid Fast Smear from Concentrated Specimen: Negative Performing Locations *1: This test was performed at: [address], [id number] , [facility] ([place]) 01-21-2024 Note . MICRO - Microbiology PROCEDURE: Urine Culture [*1] SOURCE: Urine, Clean Catch BODY SITE: COLLECTED DATE/TIME: 01/19/2024 16:57 EDT RECEIVED DATE/TIME: 01/19/2024 18:58 EDT START DATE/TIME: 01/19/2024 18:59 EDT FREE TEXT SOURCE: FINAL REPORTS Final Report [] Verified Date/Time/Personnel: 01/21/2024 07:52 EDT >100,000 cfu/ml Klebsiella oxytoca Raoultella ornithinolytica PRELIMINARY REPORTS Preliminary Report [] Verified Date/Time/Personnel: 01/20/2024 12:51 EDT >100,000 cfu/ml Klebsiella oxytoca Raoultella ornithinolytica CURTIS to follow SUSCEPTIBILITY RESULTS Klebsiella oxytoca Raoultella ornithinolytica Antibiotic CURTIS Dilut CURTIS Inter Ampicillin >16 Resistant Ampicillin/ 8/4 Susceptible Sulbactam Aztreonam <=4 Susceptible Cefazolin >16 Resistant Cefotaxime <=2 Susceptible Cefuroxime <=4 Susceptible Ciprofloxacin <=0.25 Susceptible Ertapenem <=0.5 Susceptible Gentamicin <=2 Susceptible ID Panel Not Not Applicable Applicable Imipenem <=1 Susceptible Levofloxacin <=0.5 Susceptible Meropenem <=1 Susceptible Minocycline <=4 Susceptible Nitrofurantoin <=32 Susceptible Piperacillin/ <=8 Susceptible Tazobactam Trimethoprim/ <=0.5/9.5 Susceptible Sulfa Performing Locations *1: This test was performed at: [address], [address] , [facility] ([place]) 01-05-2024 Note . MICRO - Microbiology PROCEDURE: Fungal Culture with Stain if Ind [*1] SOURCE: Tissue BODY SITE: Knee R COLLECTED DATE/TIME: 12/01/2023 11:00 EST RECEIVED DATE/TIME: 12/01/2023 16:44 EST START DATE/TIME: 12/01/2023 16:44 EST FREE TEXT SOURCE: TIBIAL MEMBRANE FINAL REPORTS Final Report [] Verified Date/Time/Personnel: 01/05/2024 07:41 EDT No fungus isolated in 4 weeks. PRELIMINARY REPORTS Preliminary Report [] Verified Date/Time/Personnel: 12/04/2023 08:24 EST No fungus isolated to date. Final report to follow. STAINS FUNSM [] Verified Date/Time/Personnel: 12/02/2023 13:22 EST No fungal elements observed by calcofluor white stain. Performing Locations *1: This test was performed at: [address], [facility] , [facility] ([place]) 01-05-2024 Note . MICRO - Microbiology PROCEDURE: Fungal Culture with Stain if Ind [*1] SOURCE: Tissue BODY SITE: Knee R COLLECTED DATE/TIME: 12/01/2023 10:52 EST RECEIVED DATE/TIME: 12/01/2023 16:44 EST START DATE/TIME: 12/01/2023 16:44 EST FREE TEXT SOURCE: SUPRAPATELLAR POUCH FINAL REPORTS Final Report [] Verified Date/Time/Personnel: 01/05/2024 07:41 EDT No fungus isolated in 4 weeks. PRELIMINARY REPORTS Preliminary Report [] Verified Date/Time/Personnel: 12/04/2023 08:24 EST No fungus isolated to date. Final report to follow. STAINS FUNSM [] Verified Date/Time/Personnel: 12/02/2023 13:22 EST No fungal elements observed by calcofluor white stain. Performing Locations *1: This test was performed at: [address], [address] [place] [address] ([place]) 01-05-2024 Note . MICRO - Microbiology PROCEDURE: Fungal Culture with Stain if Ind [*1] SOURCE: Tissue BODY SITE: Knee R COLLECTED DATE/TIME: 12/01/2023 11:00 EST RECEIVED DATE/TIME: 12/01/2023 16:44 EST START DATE/TIME: 12/01/2023 16:44 EST FREE TEXT SOURCE: [facility] FINAL REPORTS Final Report [] Verified Date/Time/Personnel: 01/05/2024 07:41 EDT No fungus isolated in 4 weeks. PRELIMINARY REPORTS Preliminary Report [] Verified Date/Time/Personnel: 12/04/2023 08:23 EST No fungus isolated to date. Final report to follow. STAINS FUNSM [] Verified Date/Time/Personnel: 12/02/2023 13:22 EST No fungal elements observed by calcofluor white stain. Performing Locations *1: This test was performed at: [address], [address] [place] [address] ([place]) 12-08-2023 Note . MICRO - Microbiology PROCEDURE: Culture Tissue [*1] SOURCE: Tissue BODY SITE: Knee R COLLECTED DATE/TIME: 12/01/2023 11:00 EST RECEIVED DATE/TIME: 12/01/2023 16:44 EST START DATE/TIME: 12/01/2023 16:44 EST FREE TEXT SOURCE: [facility]EM[facility] FINAL REPORTS Final Report [] Verified Date/Time/Personnel: 12/08/2023 06:36 EST No aerobes or anaerobes isolated at 7 days. PRELIMINARY REPORTS Preliminary Report [] Verified Date/Time/Personnel: 12/02/2023 10:34 EST No growth to date STAINS GS [] Verified Date/Time/Personnel: 12/01/2023 18:53 EST 2+ White Blood Cells No organisms seen. Performing Locations *1: This test was performed at: [address], [address] [place] [address] ([place]) 12-08-2023 Note . MICRO - Microbiology PROCEDURE: Culture Tissue [*1] SOURCE: Tissue BODY SITE: Knee R COLLECTED DATE/TIME: 12/01/2023 11:00 EST RECEIVED DATE/TIME: 12/01/2023 16:44 EST START DATE/TIME: 12/01/2023 16:44 EST FREE TEXT SOURCE: TIBIAL MEMBRANE FINAL REPORTS Final Report [] Verified Date/Time/Personnel: 12/08/2023 06:35 EST No aerobes or anaerobes isolated at 7 days. PRELIMINARY REPORTS Preliminary Report [] Verified Date/Time/Personnel: 12/02/2023 10:33 EST No growth to date STAINS GS [] Verified Date/Time/Personnel: 12/01/2023 18:20 EST 2+ White Blood Cells No organisms seen. Performing Locations *1: This test was performed at: [address] ([facility] 12-08-2023 Note . MICRO - Microbiology PROCEDURE: Culture Tissue [*1] SOURCE: Tissue BODY SITE: Knee R COLLECTED DATE/TIME: 12/01/2023 10:52 EST RECEIVED DATE/TIME: 12/01/2023 16:44 EST START DATE/TIME: 12/01/2023 16:44 EST FREE TEXT SOURCE: SUPRAPATELLAR POUCH FINAL REPORTS Final Report [] Verified Date/Time/Personnel: 12/08/2023 06:35 EST No aerobes or anaerobes isolated at 7 days. PRELIMINARY REPORTS Preliminary Report [] Verified Date/Time/Personnel: 12/02/2023 10:32 EST No growth to date STAINS GS [] Verified Date/Time/Personnel: 12/01/2023 17:45 EST 1+ White Blood Cells No organisms seen. Performing Locations *1: This test was performed at: [address], [address] [place] [address] ([place]) 12-03-2023 Hospital Discharg e instructions Patient Education 12/03/2023 18:27:33 Post Op Wound Check, Bleeding Wound Check After Surgery: Bleeding Surgery involves cutting through layers of skin, fatty tissue, muscle, and sometimes bone and cartilage. Stitches or shivani are used to close all layers of the wound. The stitches on the inside will dissolve in about 2 to 3 weeks. Any stitches or shivani used on the outside need to be removed in about 7 to 14 days, depending on the location. It is normal to have some clear or bloody discharge on the wound covering or bandage (dressing) for the first few days after surgery. If your wound was stitched closed, you should not have to change the dressing more than 3 times a day in the first few days. Bleeding or discharge requiring more frequent dressing changes can be a sign of a problem. If this occurs, notify your healthcare provider right away. Home care Different types of surgery require different types of care and dressing changes. It is important to follow all instructions and advice from your surgeon, as well as other members of your healthcare team. Wound care If you smoke, get help to quit. Smoking interferes with wound healing. Ask your healthcare provider about ways to quit. Keep the wound clean, as directed by your healthcare provider. Change the dressing as directed. Change the dressing sooner if it becomes wet or stained with blood or fluid from the wound. Bathe with a sponge (no shower or tub baths) for the first few days after surgery, or until there is no more drainage from the wound. Unless you received different instructions from your surgeon, you can then shower. Don't soak the area in water (no baths or swimming) until the tape, sutures, or shivani are removed and any wound opening has dried out and healed. Changing the dressing Wash your hands before changing the dressings. Carefully remove the dressing and tape; don t just yank it off. If it sticks to the wound, you may need to wet it a little to remove it, unless your healthcare provider told you not to wet it. Wash your hands again before putting on a new, clean dressing. Gently clean the wound with clean water (or saline) using gauze or a clean washcloth. Don't rub it or pick at it. Don't use soap, alcohol, hydrogen peroxide, or any other cleanser. If you were told to dry the wound before putting on a new dressing, gently pat it dry. Don't rub. Put the old dressing in a sealed plastic bag and throw it in the trash. Don't reuse it! Wash your hands again when you are done. Types of dressings Your healthcare team will tell you what type of dressing to put on your wound. Follow your healthcare team s instructions carefully, and contact them if you have any questions. Two common types of dressings are described below. You may have one of these or another type. Dry dressing. Use dry gauze. If the wound is still draining, use a nonadherent dressing, which shouldn t stick to the wound. Wet-to-dry dressing. Wet the gauze, and squeeze out the excess water (or saline), before putting it on. Then, cover this with a dry pad. Medicines If you were given antibiotics, take them until they are used up or your healthcare provider tells you to stop. It is important to finish the antibiotics even though you feel better, to make sure the infection has cleared. You can take acetaminophen or ibuprofen for pain, unless you were given a different pain medicine to use. (Note: If you have chronic liver or kidney disease, or have ever had a stomach ulcer or gastrointestinal bleeding, or are taking blood thinner medicines, talk with your healthcare provider before using these medicines.) Aspirin should never be used in anyone under 18 years of age who is ill with a fever. It may cause severe liver damage. Follow-up care Follow up with your healthcare provider, or as advised, for your next wound check or removal of stitches, shivani, or tape. If a culture was done, you will be notified if the results will affect your treatment. You can call as directed for the results. If imaging tests, such as X-rays, an ultrasound, or CT scan were done, they will be reviewed by a specialist. You will be notified of the results, especially if they affect treatment. Call 911 Call 911 if any of these occur: Trouble breathing or swallowing Wheezing Hoarse voice or trouble speaking Extreme confusion Extreme drowsiness or trouble awakening Fainting or loss of consciousness Rapid heart rate or very slow heart rate Vomiting blood, or large amounts of blood in stool Discomfort in the center of the chest that feels like pressure, squeezing, a sense of fullness, or pain Discomfort or pain in other upper body areas, such as the back, one or both arms, neck, jaw, or stomach Stroke symptoms (spot a stroke FAST ) oF: Face drooping. One side of the face is numb or droops. oA: Arm weakness. One arm feels weak or numb. oS: Speech difficulty: Speech is slurred, or the person is unable to speak. oT: Time to call 911. Even if symptoms go away, call 911. When to seek medical advice Call your healthcare provider right away if any of the following occur: Fluid or blood soaking 5 or more bandages a day during the first 3 days after surgery Fluid or blood still draining from the wound more than 3 days after surgery Increasing pain at the site of surgery Fever of 100.4 F (38 C) or higher, or as directed by your healthcare provider Redness around the wound Pus coming from the wound Vomiting, constipation, or diarrhea [id number] [employer]. [address] [place] [address]. All rights reserved. This information is not intended as a substitute for professional medical care. Always follow your healthcare professional's instructions. Follow Up Care 12/03/2023 15:24:47 With:DENNIS SHAIKH DO Address: [address] [place] [phone] When:2-4 days [facility] 12-03-2023 Note Discharge Instructions Thank you for allowing [facility] to assist you with your healthcare needs. The following is important discharge information regarding your hospital visit. Diagnosis from Today's Visit Wound Wound reevaluation with or without suture removal What to Do Next Instructions from Your Care Team No qualifying data available. Post Acute Orders No qualifying data available. You Need to Schedule the Following Appointments Follow Up with DNENIS SHAIKH DO When Within 2-4 days Where: [address] [place] [phone] Allergies Efudex 2% topical solution (Swelling) Solaraze 3% topical gel (Swelling) Medications Please ask your primary doctor or pharmacist before taking any other medication not listed, including over the counter drugs, herbal medications, vitamins and or supplements as they may interact with your home medications. What How Much When Why Instructions Last Dose Unchanged acetaminophen (Tylenol) 1,000 Milligram by mouth Three (3) times a day not to exceed 3000 mg/ day Unchanged aspirin 81 Milligram by mouth Twice daily with meals Take 81 mg aspirin twice daily with food for 4 weeks postoperatively for DVT prophylaxis. Unchanged atorvastatin (Lipitor 80 mg oral tablet) 1 tab(s) by mouth Every day Unchanged cholecalciferol (Vitamin D3 1250 mcg (50,000 intl units) oral capsule) 1 cap by mouth Every week Vitamin D deficiency Duration: 90 Days Unchanged clopidogrel (Plavix 75 mg oral tablet) 1 tab(s) by mouth Every day Unchanged cyanocobalamin (Vitamin B12) unsure what dose Unchanged docusate-senna (Senokot S 50 mg-8.6 mg oral tablet) 2 tab(s) by mouth Two (2) times a day Duration: 3 Days Take until first bowel movement, then as needed Unchanged doxycycline (doxycycline hyclate 100 mg oral capsule) 1 cap by mouth Every 12 hours Duration: 14 Days Unchanged famotidine (Pepcid 20 mg oral tablet) 1 tab(s) by mouth Once a day Unchanged losartan (losartan 50 mg oral tablet) 1 tab(s) by mouth Once a day Unchanged metoprolol (Metoprolol Succinate ER 25 mg oral tablet, extended release) 1 tab(s) by mouth Once a day Unchanged oxyCODONE (oxyCODONE 5 mg oral tablet ( IMMEDIATE release )) See instructions Status post revision of total replacement of right knee 1-2 tab(s) Oral q4h Unchanged sertraline (sertraline 100 mg oral tablet) 1 tab(s) by mouth Once a day Depression, major, recurrent, mild Unchanged tamsulosin (tamsulosin 0.4 mg oral capsule) 1 cap by mouth Once a day after a meal Please take this list to your next doctor s visit. Bring all medications you take, including over the counter medications, herbals and other supplements with you to your doctor s visit. Patients and families are reminded to discard old lists and to update any records with all medication providers or retail pharmacies. Education Materials Wound Check After Surgery: Bleeding Surgery involves cutting through layers of skin, fatty tissue, muscle, and sometimes bone and cartilage. Stitches or shivani are used to close all layers of the wound. The stitches on the inside will dissolve in about 2 to 3 weeks. Any stitches or shivani used on the outside need to be removed in about 7 to 14 days, depending on the location. It is normal to have some clear or bloody discharge on the wound covering or bandage (dressing) for the first few days after surgery. If your wound was stitched closed, you should not have to change the dressing more than 3 times a day in the first few days. Bleeding or discharge requiring more frequent dressing changes can be a sign of a problem. If this occurs, notify your healthcare provider right away. Home care Different types of surgery require different types of care and dressing changes. It is important to follow all instructions and advice from your surgeon, as well as other members of your healthcare team. Wound care If you smoke, get help to quit. Smoking interferes with wound healing. Ask your healthcare provider about ways to quit. Keep the wound clean, as directed by your healthcare provider. Change the dressing as directed. Change the dressing sooner if it becomes wet or stained with blood or fluid from the wound. Bathe with a sponge (no shower or tub baths) for the first few days after surgery, or until there is no more drainage from the wound. Unless you received different instructions from your surgeon, you can then shower. Don't soak the area in water (no baths or swimming) until the tape, sutures, or shivani are removed and any wound opening has dried out and healed. Changing the dressing Wash your hands before changing the dressings. Carefully remove the dressing and tape; don t just yank it off. If it sticks to the wound, you may need to wet it a little to remove it, unless your healthcare provider told you not to wet it. Wash your hands again before putting on a new, clean dressing. Gently clean the wound with clean water (or saline) using gauze or a clean washcloth. Don't rub it or pick at it. Don't use soap, alcohol, hydrogen peroxide, or any other cleanser. If you were told to dry the wound before putting on a new dressing, gently pat it dry. Don't rub. Put the old dressing in a sealed plastic bag and throw it in the trash. Don't reuse it! Wash your hands again when you are done. Types of dressings Your healthcare team will tell you what type of dressing to put on your wound. Follow your healthcare team s instructions carefully, and contact them if you have any questions. Two common types of dressings are described below. You may have one of these or another type. Dry dressing. Use dry gauze. If the wound is still draining, use a nonadherent dressing, which shouldn t stick to the wound. Wet-to-dry dressing. Wet the gauze, and squeeze out the excess water (or saline), before putting it on. Then, cover this with a dry pad. Medicines If you were given antibiotics, take them until they are used up or your healthcare provider tells you to stop. It is important to finish the antibiotics even though you feel better, to make sure the infection has cleared. You can take acetaminophen or ibuprofen for pain, unless you were given a different pain medicine to use. (Note: If you have chronic liver or kidney disease, or have ever had a stomach ulcer or gastrointestinal bleeding, or are taking blood thinner medicines, talk with your healthcare provider before using these medicines.) Aspirin should never be used in anyone under 18 years of age who is ill with a fever. It may cause severe liver damage. Follow-up care Follow up with your healthcare provider, or as advised, for your next wound check or removal of stitches, shivani, or tape. If a culture was done, you will be notified if the results will affect your treatment. You can call as directed for the results. If imaging tests, such as X-rays, an ultrasound, or CT scan were done, they will be reviewed by a specialist. You will be notified of the results, especially if they affect treatment. Call 911 Call 911 if any of these occur: Trouble breathing or swallowing Wheezing Hoarse voice or trouble speaking Extreme confusion Extreme drowsiness or trouble awakening Fainting or loss of consciousness Rapid heart rate or very slow heart rate Vomiting blood, or large amounts of blood in stool Discomfort in the center of the chest that feels like pressure, squeezing, a sense of fullness, or pain Discomfort or pain in other upper body areas, such as the back, one or both arms, neck, jaw, or stomach Stroke symptoms (spot a stroke FAST ) oF: Face drooping. One side of the face is numb or droops. oA: Arm weakness. One arm feels weak or numb. oS: Speech difficulty: Speech is slurred, or the person is unable to speak. oT: Time to call 911. Even if symptoms go away, call 911. When to seek medical advice Call your healthcare provider right away if any of the following occur: Fluid or blood soaking 5 or more bandages a day during the first 3 days after surgery Fluid or blood still draining from the wound more than 3 days after surgery Increasing pain at the site of surgery Fever of 100.4 F (38 C) or higher, or as directed by your healthcare provider Redness around the wound Pus coming from the wound Vomiting, constipation, or diarrhea [id number] [employer]. [address] [place] [address]. All rights reserved. This information is not intended as a substitute for professional medical care. Always follow your healthcare professional's instructions. Additional Information VACCINATE! IT SAVES LIVES! Members of the community who have not yet received the COVID-19 vaccine and would like to receive it can visit one of [facility] vaccine clinics. There are many vaccine clinic locations within the [facility]. For locations and available times, please visit www.gettheshot.coronavirus.[place]. gov/. It is important to note that some COVID mobile vaccine clinics are held outdoors and may be canceled in rainy or stormy conditions. To learn more about pediatric vaccinations (ages 5-11), we invite you to visit the [facility] webpage. https://www.[facility].org/p ages/0882-Vcimy-Xhmgyvtritp-Freq nzqpfv-Lmonl-Bllalvbht.html To learn more about the COVID-19 vaccine, we invite you to visit the CDC website for a list of frequently asked questions. https://www.cdc.gov/coronavirus/ 2019-ncov/vaccines/faq.html [facility] Patient Portal Access Instructions: Stay connected with your healthcare team and access your personal medical information anytime with the [facility] Patient Portal. If you would like a full copy of your medical records please contact the [facility] Medical Records Department Thursday through Thursday between 8a.m. and 4:30p.m. Please follow the directions below to access the portal: 1.Access the email account you provided upon registration to the [facility].2.Look for an invitation email from [facility].3.Open the email and access the invitation link: Accept Invitation to [facility].Fill in the required robertson to create your account. Sign into [email or web address] with your username and password that you created in the above steps to stay up to date. You can then view a summary of results, a summary of your visits, and the ability to download your summaries to your computer or send the information securely to a physician. Remember that your healthcare information is confidential, so carefully consider who you will allow to register on the [facility] Patient Portal for access to your information. You can also access the [facility] Patient Portal on the [employer]. Simply click on Health Records under Health Data and then click on the [employer] logo. HOW TO SAFELY DISPOSE OF PRESCRIPTION MEDICATIONS Please use one of the following methods to safely dispose of your unused medications. 1.Use a drug disposal kit: the drug disposal pouch allows you to safely discard your old and unused drugs. Ask your nurse to give you one when you are discharged.2.Visit a local take-back location: Many local pharmacies and police departments have programs that collect old and unwanted prescription drugs. Call your local pharmacy or go to http://iFollo.[employer]/3G6Ka3e to find one close to you.3.Make use of household items: Use cat litter or old coffee grounds to dispose medications if other options are not available. Mix your drugs with these household products, seal them in an airtight container and throw it into the garbage. Call [facility]: [phone] to be sure your drugs can be disposed of in this way. Some medicines may require a different approach.4.Never flush your medications down the toilet. IF YOU HAVE BEEN PRESCRIBED AN OPIOIDS FOR PAIN If you have been prescribed an opioid (such as hydrocodone, oxycodone or morphine), it is critical to understand the possible side effects and risks of opioid pain medications. Even when taken as directed, opioids can have several side effects including: Tolerance, meaning you might need to take more of a medication for the same pain relief. Nausea, vomiting and/or constipation. Sleepiness, dizziness, dry mouth, confusion, depression or itching. Physical dependence, meaning you have withdrawal symptoms when a medication is stopped ? this can develop within a few days. KNOW YOUR RESPONSIBILITIES It is important to know exactly how much and how often to take the opioid pain medications you are prescribed. Never take opioids in higher amounts or more often than prescribed. Do not combine opioids with alcohol or other drugs that cause drowsiness, such as benzodiazepines, also known as benzos, including diazepam and alprazolam, muscle relaxants or sleep aids. Never sell or share prescription opioids. This is illegal. Store opioids in a secure place and out of reach of others (including children, family, friends and visitors). The last page(s) of this document has been signed and retained as a CHART COPY Signatures Patient Education Materials Post Op Wound Check, Bleeding Medication Leaflets My discharge plan and instructions have been reviewed and explained to me and I,LAZARO AMANDA understand my current condition and have read and understand these discharge instructions. I have received a written copy of the plan/instructions. If I have questions, I am aware that I should contact my doctor. Patient/Gis Specialist Signature: Date/Time: Relationship to Patient: Witness Name/Signature: Date/Time: [facility] 12-03-2023 Note Discharge Instructions Thank you for allowing [facility] to assist you with your healthcare needs. The following is important discharge information regarding your hospital visit. Your Care Team Dr. Rutledge Your Diagnosis BPH (benign prostatic hyperplasia) Depression, major, recurrent, mild Hypertension Osteoarthritis Renal insufficiency S/P knee replacement Status post revision of total replacement of right knee What to do next Scheduled Follow-Up Appointments Appointment Type When With Where Contact InformationPT Outpatient Evaluation 12/07/2023 04:00 PM [facility] [phone] PC OV 03/17/2024 08:30 AM DENNIS SYED [facility] [address] [phone] Follow Up Appointments Follow Up with LENKA DEXTER PA-C, Orthopedic When 12/14/2023 03:15 PM EST Why: This is your post-op appointment. Follow-up as scheduled. Where: [facility] [place] [address]- Follow Up with [facility] When 12/07/2023 04:00 PM EST Why: This is your first physical therapy appointment. Follow-up as scheduled. Where: [address] [place] [address]- [phone] Follow Up with LENKA DEXTER PA-C, Orthopedic When 12/07/2023 08:15 AM EST Why: This is your post-op appointment. Follow-up as scheduled. Where: [facility] [place] [address]- The Following Activity and Diet Have Been Ordered for You Activity: Weight bearing as tolerated. Diet: No changes were made to your diet. The Following Treatments Have Been Ordered for You Discharge Labs No qualifying data available. Discharge Radiology No qualifying data available. Other Therapies Physical Therapy Outpatient Eval & Treat (Physical Therapy Eval and Treat Outpatient) - Future -- 12/07/23, Future Order, ~PATIENTLOCATION, Once, No Wound Care Change dressing daily with ABD pad and NEVA wrap and if saturated. Do Not shower or get incision wet. Allergies Efudex 2% topical solution (Swelling) Solaraze 3% topical gel (Swelling) Medications Please ask your primary doctor or pharmacist before taking any other medication not listed, including over the counter drugs, herbal medications, vitamins and or supplements as they may interact with your home medications. What How Much When Why Instructions Last Dose New acetaminophen (Tylenol) 1,000 Milligram by mouth Three (3) times a day not to exceed 3000 mg/ day 12/03/23 at 0806am New docusate-senna (Senokot S 50 mg-8.6 mg oral tablet) 2 tab(s) by mouth Two (2) times a day Duration: 3 Days Take until first bowel movement, then as needed Pickup at [facility]/pharmacy #[id number] none New doxycycline (doxycycline hyclate 100 mg oral capsule) 1 cap by mouth Every 12 hours Duration: 14 Days Pickup at [facility]/pharmacy #[id number] 12/03/23 at 0806am New famotidine (Pepcid 20 mg oral tablet) 1 tab(s) by mouth Once a day Pickup at [facility]/pharmacy #[id number] 12/03/23 at 0806am New oxyCODONE (oxyCODONE 5 mg oral tablet ( IMMEDIATE release )) See instructions Status post revision of total replacement of right knee 1-2 tab(s) Oral q4h Pickup at [facility]/pharmacy #[id number] none Changed aspirin 81 Milligram by mouth Twice daily with meals Take 81 mg aspirin twice daily with food for 4 weeks postoperatively for DVT prophylaxis. 12/03/23 at 0806am Unchanged atorvastatin (Lipitor 80 mg oral tablet) 1 tab(s) by mouth Every day none Unchanged cholecalciferol (Vitamin D3 1250 mcg (50,000 intl units) oral capsule) 1 cap by mouth Every week Vitamin D deficiency Duration: 90 Days none Unchanged clopidogrel (Plavix 75 mg oral tablet) 1 tab(s) by mouth Every day none Unchanged cyanocobalamin (Vitamin B12) unsure what dose none Unchanged losartan (losartan 50 mg oral tablet) 1 tab(s) by mouth Once a day 12/03/23 at 0806am Unchanged metoprolol (Metoprolol Succinate ER 25 mg oral tablet, extended release) 1 tab(s) by mouth Once a day 12/03/23 at 0806am Unchanged sertraline (sertraline 100 mg oral tablet) 1 tab(s) by mouth Once a day Depression, major, recurrent, mild 12/03/23 at 0806am Unchanged tamsulosin (tamsulosin 0.4 mg oral capsule) 1 cap by mouth Once a day after a meal 12/03/23 at 0806am Pharmacy Information [facility]/pharmacy #[id number]: [address], [place] [id number] [phone] Please take this list to your next doctor s visit. Bring all medications you take, including over the counter medications, herbals and other supplements with you to your doctor s visit. Patients and families are reminded to discard old lists and to update any records with all medication providers or retail pharmacies. Medication Leaflets doxycycline (oral/injection) (DOX i FAHEEM greer) Acticlate, Adoxa, Alodox, Avidoxy, Doryx, Doryx MPC, Lymepak, Mondoxyne NL, Monodox, Morgidox, Morgidox 5p717ts, Morgidox 3c601qx, O[place]bo, Oracea, Targadox, Vibramycin, Vibramycin Monohydrate What is the most important information I should know about doxycycline? You should not take this medicine if you are allergic to any tetracycline antibiotic. Children younger than 8 years old should use doxycycline only in cases of severe or life-threatening conditions. This medicine can cause permanent yellowing or graying of the teeth in children Using doxycycline during could harm the unborn baby or cause permanent tooth discoloration later in the baby's life. What is doxycycline? Doxycycline is a tetracycline antibiotic that Doxycycline is used to treat many different bacterial infections, such as acne, urinary tract infections, intestinal infections, eye infections, gonorrhea, chlamydia, periodontitis (gum disease), and others. Doxycycline is also used to treat blemishes, bumps, and acne-like lesions caused by rosacea. Doxycycline will not treat facial redness caused by rosacea. Some forms of doxycycline are used to prevent malaria, to treat anthrax, or to treat infections caused by mites, ticks, or lice. Doxycycline may also be used for purposes not listed in this medication guide. What should I discuss with my healthcare provider before taking doxycycline? You should not take this medicine if you are allergic to doxycycline or other tetracycline antibiotics such as demeclocycline, minocycline, tetracycline, or tigecycline. Tell your doctor if you have ever had: liver disease; kidney disease; asthma or sulfite allergy; increased pressure inside your skull; or if you also take isotretinoin, seizure medicine, or a blood thinner such as warfarin (Coumadin). If you are using doxycycline to treat gonorrhea, your doctor may test you to make sure you do not also have syphilis, another sexually transmitted disease. Taking this medicine during may affect tooth and bone development in the unborn baby. Taking doxycycline during the last half of can cause permanent tooth discoloration later in the baby's life. Tell your doctor if you are or if you become . Doxycycline can make control pills less effective. Ask your doctor about using a non-hormonal control (condom, diaphragm with spermicide) to prevent . Doxycycline can pass into breast milk and may affect bone and tooth development in a nursing . Do not breastfeed while you are taking doxycycline. Doxycycline can cause permanent yellowing or graying of the teeth in children younger than 8 years old. Children should use doxycycline only in cases of severe or life-threatening conditions such as anthrax or [place] spotted fever. The benefit of treating a serious condition may outweigh any risks to the child's tooth development. How should I take doxycycline? Follow all directions on your prescription label and read all medication guides or instruction sheets. Use the medicine exactly as directed. Take doxycycline with a full glass of water. Drink plenty of liquids while you are taking doxycycline. Read and carefully follow any Instructions for Use provided with your medicine. Ask your doctor or pharmacist if you do not understand these instructions. Most brands of doxycyline may be taken with food or milk if the medicine upsets your stomach. Different brands of doxycycline may have different instructions about taking them with or without food. Take Oracea on an empty stomach, at least 1 hour before or 2 hours after a meal. You may need to split a doxycycline tablet to get the correct dose. Follow your doctor's instructions. Swallow a delayed-release capsule or tablet whole. Do not crush, chew, break, or open it. Measure liquid medicine with the dosing syringe provided, or with a special dose-measuring spoon or medicine cup. If you do not have a dose-measuring device, ask your pharmacist for one. If you take doxycycline to prevent malaria: Start taking the medicine 1 or 2 days before entering an area where malaria is common. Continue taking the medicine every day during your stay and for at least 4 weeks after you leave the area. Doxycycline is usually given by injection only if you are unable to take the medicine by mouth. A healthcare provider will give you this injection as an infusion into a vein. Use this medicine for the full prescribed length of time, even if your symptoms quickly improve. Skipping doses can increase your risk of infection that is resistant to medication. Doxycycline will not treat a viral infection such as the flu or a common cold. Store at room temperature away from moisture, heat, and light. Throw away any unused medicine after the expiration date on the label has passed. Using doxycycline can cause damage to your kidneys. What happens if I miss a dose? Take the medicine as soon as you can, but skip the missed dose if it is almost time for your next dose. Do not take two doses at one time. What happens if I overdose? Seek emergency medical attention or call the Poison Help line at . What should I avoid while taking doxycycline? Do not take iron supplements, multivitamins, calcium supplements, antacids, or laxatives within 2 hours before or after taking doxycycline. Avoid taking any other antibiotics with doxycycline unless your doctor has told you to. Doxycycline could make you sunburn more easily. Avoid sunlight or tanning beds. Wear protective clothing and use sunscreen (SPF 30 or higher) when you are outdoors. Antibiotic medicines can cause diarrhea, which may be a sign of a new infection. If you have diarrhea that is watery or bloody, call your doctor. Do not use anti-diarrhea medicine unless your doctor tells you to. What are the possible side effects of doxycycline? Get emergency medical help if you have signs of an allergic reaction (hives, difficult breathing, swelling in your face or throat) or a severe skin reaction (fever, sore throat, burning in your eyes, skin pain, red or purple skin rash that spreads and causes blistering and peeling). Seek medical treatment if you have a serious drug reaction that can affect many parts of your body. Symptoms may include: skin rash, fever, swollen glands, flu-like symptoms, muscle aches, severe weakness, unusual bruising, or yellowing of your skin or eyes. This reaction may occur several weeks after you began using doxycycline. Call your doctor at once if you have: severe stomach pain, diarrhea that is watery or bloody; throat irritation, trouble swallowing; chest pain, irregular heart rhythm, feeling short of breath; little or no urination; low white blood cell counts--fever, chills, swollen glands, body aches, weakness, pale skin, easy bruising or bleeding; increased pressure inside the skull--severe headaches, ringing in your ears, dizziness, nausea, vision problems, pain behind your eyes; or signs of liver or pancreas problems--loss of appetite, upper stomach pain (that may spread to your back), tiredness, nausea or vomiting, fast heart rate, dark urine, jaundice (yellowing of the skin or eyes). Common side effects may include: nausea, vomiting, upset stomach, loss of appetite; mild diarrhea; skin rash or itching; darkened skin color; or vaginal itching or discharge. This is not a complete list of side effects and others may occur. Call your doctor for medical advice about side effects. You may report side effects to FDA at 7-440-JDZ-3940. What other drugs will affect doxycycline? Sometimes it is not safe to use certain medications at the same time. Some drugs can affect your blood levels of other drugs you take, which may increase side effects or make the medications less effective. Other drugs may affect doxycycline, including prescription and iyzm-eor-wxsnmpj medicines, vitamins, and herbal products. Tell your doctor about all your current medicines and any medicine you start or stop using. Where can I get more information? Your pharmacist can provide more information about doxycycline. Remember, keep this and all other medicines out of the reach of children, never share your medicines with others, and use this medication only for the indication prescribed. Every effort has been made to ensure that the information provided by [employer]. [employer]') is accurate, up-to-date, and complete, but no guarantee is made to that effect. Drug information contained herein may be time sensitive. [employer] information has been compiled for use by healthcare practitioners and consumers in the [place] and therefore [employer] does not warrant that uses outside of the [place] are appropriate, unless specifically indicated otherwise. [facility] drug information does not endorse drugs, diagnose patients or recommend therapy. [facility] drug information is an informational resource designed to assist licensed healthcare practitioners in caring for their patients and/or to serve consumers viewing this service as a supplement to, and not a substitute for, the expertise, skill, knowledge and judgment of healthcare practitioners. The absence of a warning for a given drug or drug combination in no way should be construed to indicate that the drug or drug combination is safe, effective or appropriate for any given patient. [employer] does not assume any responsibility for any aspect of healthcare administered with the aid of information [employer] provides. The information contained herein is not intended to cover all possible uses, directions, precautions, warnings, drug interactions, allergic reactions, or adverse effects. If you have questions about the drugs you are taking, check with your doctor, nurse or pharmacist. Copyright 2214-1555 [employer]. Version: 25.. Revision Date: 06/17/2023. famotidine (oral/injection) (fam [place] ti jack) Heartburn Relief, Pepcid, Pepcid AC, Pepcid AC Maximum Strength, Zantac 360 What is the most important information I should know about famotidine? Follow all directions on the label and package. Use exactly as directed. What is famotidine? Famotidine is used to treat and prevent ulcers in the stomach and intestines. It also treats conditions in which the stomach produces too much acid, such as Mere-Tavares syndrome. Famotidine also treats gastroesophageal reflux disease (GERD) and other conditions in which acid backs up from the stomach into the esophagus, causing heartburn. The Zantac 360 brand of this medicine does not contain ranitidine, a medicine that was withdrawn from market in the [place]. Famotidine may also be used for purposes not listed in this medication guide. What should I discuss with my healthcare provider before taking famotidine? Heartburn can feel like a heart attack. Get emergency medical help if you have chest pain that spreads to your jaw or shoulder. You should not use this medicine if you are allergic to famotidine or similar medicines such as ranitidine (Zantac), cimetidine (Tagamet), or nizatidine (Axid). Ask a doctor or pharmacist if this medicine is safe to use if you have: kidney disease; liver disease; cancer stomach; or long QT syndrome (in you or a family member). Ask a doctor before using this medicine if you are or . How should I take famotidine? Use exactly as directed on the label, or as prescribed by your doctor. Famotidine oral is taken by mouth. Famotidine injection is given in a vein if you are unable to take the medicine by mouth. You may take famotidine oral with or without food. Measure liquid medicine with the supplied syringe or a dose-measuring device (not a kitchen spoon). Most ulcers heal within 4 weeks of famotidine treatment, but it may take up to 8 weeks of using this medicine before your ulcer heals. Keep using the medication as directed. Call your doctor if the condition you are treating with famotidine does not improve, or if it gets worse while using famotidine. Your treatment may also include changes in diet or lifestyle habits. Follow all instructions of your doctor or dietitian. Store at room temperature away from moisture, heat, and light. Do not allow the liquid medicine to freeze. Throw away any unused famotidine liquid that is older than 30 days. What happens if I miss a dose? Take the medicine as soon as you can, but skip the missed dose if it is almost time for your next dose. Do not take two doses at one time. What happens if I overdose? Seek emergency medical attention or call the Poison Help line at . What should I avoid while taking famotidine? Drinking alcohol may increase the risk of damage to your stomach. Avoid taking other stomach acid reducers unless your doctor has told you to. However, you may take an antacid (such as Maalox, Mylanta, Gaviscon, Milk of Magnesia, Rolaids, or Tums) with famotidine. What are the possible side effects of famotidine? Get emergency medical help if you have signs of an allergic reaction: hives; difficult breathing; swelling of your face, lips, tongue, or throat. Stop using famotidine and call your doctor at once if you have: confusion, hallucinations, agitation, lack of energy; a seizure; fast or pounding heartbeats, sudden dizziness (like you might pass out); or unexplained muscle pain, tenderness, or weakness especially if you also have fever, unusual tiredness, and dark colored urine. Some side effects may be more likely in older adults and in people who have severe kidney disease. Common side effects may include: headache; dizziness; or constipation or diarrhea. This is not a complete list of side effects and others may occur. Call your doctor for medical advice about side effects. You may report side effects to FDA at 8-918-BCP-1673. What other drugs will affect famotidine? Famotidine oral can make it harder for your body to absorb other medicines you take by mouth. Tell your doctor if you are taking: cefditoren; dasatinib; delavirdine; fosamprenavir; or tizanidine (if you are taking famotidine liquid). This list is not complete. Other drugs may affect famotidine, including prescription and hilj-wrr-gwbmyve medicines, vitamins, and herbal products. Not all possible drug interactions are listed here. Where can I get more information? Your doctor or pharmacist can provide more information about famotidine. Remember, keep this and all other medicines out of the reach of children, never share your medicines with others, and use this medication only for the indication prescribed. Every effort has been made to ensure that the information provided by [employer]. [employer]') is accurate, up-to-date, and complete, but no guarantee is made to that effect. Drug information contained herein may be time sensitive. [employer] information has been compiled for use by healthcare practitioners and consumers in the [place] and therefore [employer] does not warrant that uses outside of the [place] are appropriate, unless specifically indicated otherwise. [employer] drug information does not endorse drugs, diagnose patients or recommend therapy. [facility] drug information is an informational resource designed to assist licensed healthcare practitioners in caring for their patients and/or to serve consumers viewing this service as a supplement to, and not a substitute for, the expertise, skill, knowledge and judgment of healthcare practitioners. The absence of a warning for a given drug or drug combination in no way should be construed to indicate that the drug or drug combination is safe, effective or appropriate for any given patient. [employer] does not assume any responsibility for any aspect of healthcare administered with the aid of information [employer] provides. The information contained herein is not intended to cover all possible uses, directions, precautions, warnings, drug interactions, allergic reactions, or adverse effects. If you have questions about the drugs you are taking, check with your doctor, nurse or pharmacist. Copyright [id number] [employer]. Version: 20.. Revision Date: 05/04/2023. oxycodone (ox i KOE done) Oxaydo, OxyCONTIN, Roxicodone, RoxyBond, Xtampza ER What is the most important information I should know about oxycodone? MISUSE OF OPIOID MEDICINE CAN CAUSE ADDICTION, OVERDOSE, OR . Fatal side effects may occur if you also drink alcohol or use other drugs that cause drowsiness or slow breathing. Using opioid medicine during may cause life-threatening withdrawal symptoms in the . What is oxycodone? Oxycodone is an opioid pain medication used to treat moderate to severe pain. Oxycodone is usually given after other treatments did not work or were not tolerated. Extended-release oxycodone is for fsltcg-asy-coxzw treatment of severe and chronic pain that requires longer treatment. This medicine is not for use on an as-needed basis. Oxycodone may also be used for purposes not listed in this medication guide. What should I discuss with my healthcare provider before taking oxycodone? You should not use oxycodone if you are allergic to it, or if you have severe asthma, breathing problems or a stomach or bowel obstruction (including paralytic ileus). Tell your doctor if you have ever had: other breathing problems, sleep apnea (breathing that stops during sleep); a head injury, brain tumor, high pressure inside the skull, or seizures, drug or alcohol addiction, or mental illness; if you have used an MAO inhibitor in the past 14 days, such as isocarboxazid, linezolid, methylene blue injection, phenelzine, or tranylcypromine; urination problems, problems with your gallbladder, pancreas, thyroid, or adrenal gland; or liver or kidney disease. Most forms of oxycodone are not approved for use in people under 18 years old. The extended-release tablets should not be given to a child younger than 11 years old. Tell your doctor if you also use stimulant medicine, opioid medicine, herbal products, or medicine for depression, mental illness, Parkinson's disease, migraine headaches, serious infections, or prevention of nausea and vomiting. An interaction with oxycodone could cause a serious condition called serotonin syndrome. May harm an unborn baby. Tell your doctor if you are or plan to become . If you use oxycodone during , your baby could be born with life-threatening withdrawal symptoms, and may need medical treatment for several weeks. Do not breastfeed. Oxycodone in breast milk can cause life-threatening side effects in a nursing baby. Long-term oxycodone may affect fertility in men or women. could be harder to achieve while either parent is using this medicine. How should I take oxycodone? Follow the directions on your prescription label and read all medication guides or instruction sheets. Never use oxycodone in larger amounts, or for longer than prescribed. Tell your doctor if you feel an increased urge to use more of this medicine. Never share opioid medicine with another person, especially someone with a history of drug addiction. MISUSE CAN CAUSE ADDICTION, OVERDOSE, OR . Keep the medicine where others cannot get to it. Selling or giving away this medicine is against the law. Never crush a pill or use the liquid to inhale the mixture or inject it into your vein. This could result in . Your dose needs may change if you switch to a different brand, strength, or form of this medicine. Avoid medication errors by using exactly as directed on the label, or as prescribed by your doctor. Stop taking all other uirshq-iqa-jsjvq opioid pain medicines when you start taking extended-release oxycodone. Swallow the extended-release forms whole to avoid exposure to a potentially fatal overdose. Do not crush, chew, break, open, or dissolve. Take the extended-release capsules with food. Read and carefully follow the instructions for use on how to prepare and take this medicine if you cannot swallow extended release capsules whole or you use a feeding tube. Ask your doctor or pharmacist if you don't understand these instructions. Measure liquid medicine with the supplied measuring device (not a kitchen spoon). You may be given other medications to help prevent or treat certain side effects. You may have withdrawal symptoms if you stop using oxycodone suddenly. Ask your doctor before stopping the medicine. Store at room temperature away from moisture and heat. Keep your medicine in a place where no one can use it improperly. Do not keep leftover medicine. Just one dose can cause in someone using it accidentally or improperly. Ask your pharmacist about a drug take-back program, or flush the unused medicine down the toilet. What happens if I miss a dose? Since oxycodone is used for pain, you are not likely to miss a dose. Skip any missed dose if it is almost time for your next dose. Do not use two doses at one time. What happens if I overdose? Seek emergency medical attention or call the Poison Help line at . An overdose can be fatal, especially in a child or person using opioid medicine without a prescription. Your doctor may recommend you get naloxone (a medicine to reverse an opioid overdose) and keep it with you at all times. A person caring for you can give the naloxone if you stop breathing or don't wake up. Your caregiver must still get emergency medical help and may need to perform CPR (cardiopulmonary resuscitation) on you while waiting for help to arrive. Anyone can buy naloxone from a pharmacy or local health department. Make sure any person caring for you knows where you keep naloxone and how to use it. What should I avoid while taking oxycodone? Do not drink alcohol or any products that contain alcohol. Dangerous side effects or could occur. Avoid driving or hazardous activity until you know how this medicine will affect you. Dizziness or drowsiness can causing falls, accidents, or severe injuries. Also avoid getting up too fast from a sitting or lying position, or you may feel dizzy. What are the possible side effects of oxycodone? Get emergency medical help if you have signs of an allergic reaction: hives, difficult breathing, swelling of your face, lips, tongue, or throat. Opioid medicine can slow or stop your breathing, and may occur, especially if you drink alcohol or use other drugs that cause drowsiness or slow breathing. A person caring for you should give naloxone and/or seek emergency medical attention if you have slow breathing with long pauses, blue colored lips, or if you are hard to wake up. Call your doctor at once if you have: slow heart rate, weak pulse, fainting, slow breathing (breathing may stop); chest pain, fast or pounding heartbeats; a seizure, extreme drowsiness; or decreased adrenal gland hormones--nausea, vomiting, stomach pain, loss of appetite, feeling tired or light-headed, muscle or joint pain, skin discoloration, craving salty foods. Serious breathing problems may be more likely in older adults and in those who are debilitated or have wasting syndrome or chronic breathing disorders. Seek medical attention right away if you have symptoms of serotonin syndrome, such as: agitation, hallucinations, fever, sweating, shivering, fast heart rate, muscle stiffness, twitching, loss of coordination, nausea, vomiting, or diarrhea. Common side effects may include: sleep problems (insomnia), itching; drowsiness, headache, dizziness, tiredness; or constipation, stomach pain, nausea, vomiting. This is not a complete list of side effects and others may occur. Call your doctor for medical advice about side effects. You may report side effects to FDA at 9-246-JWZ-0731. What other drugs will affect oxycodone? You may have a fatal oxycodone overdose if you start or stop using certain medicines. Tell your doctor about all your medications. Tell your doctor about all your medications especially if you use medicine to treat HIV, antibiotic, antifungal medication, or seizure medication. Many other drugs can be dangerous when used with opioid medicine. Tell your doctor if you also use: medicine for allergies, asthma, blood pressure, motion sickness, irritable bowel, or overactive bladder; other opioid medicines, a benzodiazepine sedative like Valium, Klonopin, or Xanax; sleep medicine, muscle relaxers, or other drugs that make you drowsy; or drugs that affect serotonin, such as antidepressants, stimulants, or medicine for migraines or Parkinson's disease. This list is not complete and many other drugs may affect oxycodone. This includes prescription and [id number] medicines, vitamins, and herbal products. Not all possible drug interactions are listed here. Where can I get more information? Your doctor or pharmacist can provide more information about oxycodone. Remember, keep this and all other medicines out of the reach of children, never share your medicines with others, and use this medication only for the indication prescribed. Every effort has been made to ensure that the information provided by [employer]. ('[employer]') is accurate, up-to-date, and complete, but no guarantee is made to that effect. Drug information contained herein may be time sensitive. [employer] information has been compiled for use by healthcare practitioners and consumers in the [place] and therefore [employer] does not warrant that uses outside of the [place] are appropriate, unless specifically indicated otherwise. [employer]'s drug information does not endorse drugs, diagnose patients or recommend therapy. [facility] drug information is an informational resource designed to assist licensed healthcare practitioners in caring for their patients and/or to serve consumers viewing this service as a supplement to, and not a substitute for, the expertise, skill, knowledge and judgment of healthcare practitioners. The absence of a warning for a given drug or drug combination in no way should be construed to indicate that the drug or drug combination is safe, effective or appropriate for any given patient. [employer] does not assume any responsibility for any aspect of healthcare administered with the aid of information [employer] provides. The information contained herein is not intended to cover all possible uses, directions, precautions, warnings, drug interactions, allergic reactions, or adverse effects. If you have questions about the drugs you are taking, check with your doctor, nurse or pharmacist. Copyright Jerson Zambrano [facility]. Version: 17.01. Revision Date: 11/03/2023. Education Materials [facility] Post-operative Instructions PLEASE FOLLOW [facility] POST-OP INSTRUCTIONS GIVEN WATCH FOR SIGNS OF INFECTION: call the office ([phone]) if experencing any of the following: (Usually appears 36-48 hours after surgery) Increased temperature (101 degrees Fahrenheit or higher) Redness or swelling Increased uncontrolled pain Foul odor or drainage Calf discomfort Significant swelling Or if having any chest pain, shortness of breath, or difficulty breathing or swallowing call the office or go the nearest Emergency Room. If you have any questions, please call your doctor at the number listed on your follow up instructions. Form: 338A (32264) R: 02/15 Additional Information VACCINATE! IT SAVES LIVES! Members of the community who have not yet received the COVID-19 vaccine and would like to receive it can visit one of [facility] vaccine clinics. There are many vaccine clinic locations within the [facility]. For locations and available times, please visit https://gettheshot.coronavirus.o hio.gov/. It is important to note that some COVID mobile vaccine clinics are held outdoors and may be canceled in rainy or stormy conditions. To learn more about pediatric vaccinations (ages 5-11), we invite you to visit the [facility] webpage. [email or web address] To learn more about the COVID-19 vaccine, we invite you to visit the CDC website for a list of frequently asked questions.https://www.cdc.gov/co ronavirus/2019-ncov/vaccines/faq .html [facility] Patient Portal Access Instructions: Stay connected with your healthcare team and access your personal medical information anytime with the [facility] Patient Portal. Please follow the directions below to create your [facility] account: 1.Access the email account you provided upon registration to the hospital/physician office.2.Look for an invitation email from [facility].3.Open the email and access the invitation link: Accept Invitation to [facility].4.Fill in the required robertson to create your account. To access your account, visit [email or web address]. Click the blue button labeled Access Patient Portal and then log in with the username and password that you created in the steps above. You will be able to view your test results, lab results, a summary of your visits, upcoming appointments and more. There is also a convenient messaging option where you can send secure messages to your provider. In addition, you will have the ability to download any documents or summaries to your computer and/or send the information securely to a physician. Remember that your healthcare information is confidential, so carefully consider who you will allow to register on the [facility] Patient Portal for access to your information. You can also access the [facility] Patient Portal on the [facility] caio. Simply click on Patient Portal and then log into your account. If you would like to receive a full copy of your medical records, please contact the [facility] Medical Records Department by calling [phone], Thursday through Thursday between 8 a.m. and 4:30 p.m. HOW TO SAFELY DISPOSE OF PRESCRIPTION MEDICATIONS Please use one of the following methods to safely dispose of your unused medications. 1.Use a drug disposal kit: the drug disposal pouch allows you to safely discard your old and unused drugs. Ask your nurse to give you one when you are discharged.2.Visit a local take-back location: Many local pharmacies and police departments have programs that collect old and unwanted prescription drugs. Call your local pharmacy or go to http://iFollo.[employer]/4R2Ak9b to find one close to you.3.Make use of household items: Use cat litter or old coffee grounds to dispose medications if other options are not available. Mix your drugs with these household products, seal them in an airtight container and throw it into the garbage. Call [facility]: [phone] to be sure your drugs can be disposed of in this way. Some medicines may require a different approach.4.Never flush your medications down the toilet. IF YOU HAVE BEEN PRESCRIBED AN OPIOID FOR PAIN If you have been prescribed an opioid (such as hydrocodone, oxycodone or morphine), it is critical to understand the possible side effects and risks of opioid pain medications. Even when taken as directed, opioids can have several side effects including: Tolerance, meaning you might need to take more of a medication for the same pain relief. Nausea, vomiting and/or constipation. Sleepiness, dizziness, dry mouth, confusion, depression or itching. Physical dependence, meaning you have withdrawal symptoms when a medication is stopped, can develop within a few days. KNOW YOUR RESPONSIBILITIES It is important to know exactly how much and how often to take the opioid pain medications you are prescribed. Never take opioids in higher amounts or more often than prescribed. Do not combine opioids with alcohol or other drugs that cause drowsiness, such as benzodiazepines, also known as benzos, including diazepam and alprazolam, muscle relaxants or sleep aids. Never sell or share prescription opioids. This is illegal. Store opioids in a secure place and out of reach of others (including children, family, friends and visitors). The last page of this document has been signed and retained as a CHART COPY. Signatures Patient Education Materials [address] [place] [address] Post-op Instruction 05/2017 ([id number]) Medication Leaflets doxycycline (oral/injection), famotidine (oral/injection), oxycodone My discharge plan and instructions have been reviewed and explained to me and I,LAZARO AMANDA understand my current condition and have read and understand these discharge instructions. I have received a written copy of the plan/instructions. If I have questions, I am aware that I should contact my doctor. Patient/Gis Specialist Signature: Date/Time: Relationship to Patient: Witness Name/Signature: Date/Time: [facility] 12-03-2023 Note Date of Service December 03, 2023 Subjective The patient was sitting in bed upon examination with his present. Patient denies any chest pain, shortness of breath, dizziness, lightheadedness, nausea or vomiting, or calf pain. No adverse overnight events. Pain has been controlled on medications. Patient did require an additional night stay secondary to drainage from the right knee. Patient required compressive dressing with ABD and Neva wrap with sandbag. We limited physical therapy with range of motion. Today patient has been doing well. Pain has been very well-controlled. Upon removal of the Neva wrap there was minimal drainage on the ABD and dressing. There was no active drainage present. A new Mepilex dressing was then placed over the right incision. Patient's cultures have been negative. Objective Vitals and Measurements T: 36.5 C (Oral) TMIN: 36.3 C (Oral) TMAX: 36.9 C (Oral) HR: 66 RR: 16 BP: 102/64 SpO2: 98% Intake and Output 7AM Yesterday to 7AM Today Intake and Output (Last 24 hours) Intake Oral Intake 300.00 Supplement Intake 100.00 Output Urine Voided 150.00 Stool Count 2.00 Urine Count 2.00 Total Summary Total Intake 400.00 Total Output 150.00 Fluid Balance 250.00 Physical Exam Vital signs stable, afebrile SCDs and BALTA hose were in place bilaterally Patient is able to plantarflex and dorsiflex actively Sensation is intact to saphenous, sural, superficial and deep peroneal, and tibial distribution Compressive Neva wrap dressing was removed and there was no active drainage. Minimal old drainage on dressing. A new Mepilex dressing was placed. Negative signs and symptoms of DVT, negative Homans bilaterally Weight Dosing Weight: 97.1 kg (12/01/23) Dosing Weight: 97.1 kg (12/01/23) Medications Medications (23) Active Scheduled: (13) aspirin 81 mg Chewable 81 mg 1 tab(s), Oral, BIDM atorvastatin 40 mg tablet 80 mg 2 tab(s), Oral, Daily clopidogrel 75 mg Tablet 75 mg 1 tab(s), Oral, Daily docusate sodium 100 mg Capsule 100 mg 1 cap(s), Oral, BID docusate-senna (Senokot S) 50 mg-8.6 mg Tablet 2 tab(s), Oral, BID doxycycline hyclate 100 mg Capsule 100 mg 1 cap(s), Oral, q12h famotidine 20 mg tablet 20 mg 1 tab(s), Oral, qDay losartan 50 mg tablet 50 mg 1 tab(s), Oral, qDay magnesium hydroxide 8% Suspension 30 mL UD 30 mL, Oral, Daily metoprolol succinate 25 mg ER tablet 25 mg 1 tab(s), Oral, qDay multivitamin (Myadec) with minerals Therapeutic Multiple Vitamins with Minerals Tablet 1 tab(s), Oral, qDayM sertraline 50 mg tablet 100 mg 2 tab(s), Oral, qDay tamsulosin 0.4 mg Capsule 0.4 mg 1 cap(s), Oral, qDayPC Continuous: (1) Lactated Ringers 1,000 mL 1,000 mL, Intravenous, 100 mL/hr PRN: (9) acetaminophen 325 mg Tablet 650 mg 2 tab(s), Oral, q4h diphenhydramine 25 mg tablet 25 mg 1 tab(s), Oral, q6h diphenhyDRAMINE 50 mg/mL (1 mL) INJ 25 mg 0.5 mL, IV Push, q6h morphine 2 mg/mL 1 mL syringe 2 mg 1 mL, IV Push, q1h ondansetron 2 mg/ 1 mL 2 mL INJ 4 mg 2 mL, IV Push, q8h oxycodone 5 mg tablet (immediate release) 5 mg 1 tab(s), Oral, q4h oxycodone 5 mg tablet (immediate release) 10 mg 2 tab(s), Oral, q4h prochlorperazine 10 mg/2 mL vial 5 mg 1 mL, IV Push, q6h sodium biphosphate-sodium phosphate 19 gm-7 gm Enema 133 mL, Rectal, qDay Lab Results 12/03 05:15 WBC: 8.8 Hgb: 10.0 L Hct: 28.0 L Platelet: 152 Neutrophil %: 64.6 Glucose Level: 115 H Sodium Level: 141 Potassium Level: 4.4 BUN: 29 H Creatinine Lvl (s): 1.33 H 12/02 05:14 WBC: 12.7 H Hgb: 12.0 L Hct: 33.8 L Platelet: 176 Neutrophil %: 87.0 H Glucose Level: 162 H Sodium Level: 138 Potassium Level: 4.2 BUN: 26 H Creatinine Lvl (s): 1.37 H EKG No qualifying data available. Assessment/Plan BPH (benign prostatic hyperplasia) Depression, major, recurrent, mild Hypertension Osteoarthritis Renal insufficiency S/P knee replacement 1. 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 Continue pain medications: Tylenol and oxycodone. We are unable to use nonsteroidal anti-inflammatories. 3. DVT prophylaxis: Take 81 mg aspirin twice daily with food for 4 weeks postoperatively for DVT prophylaxis. Patient denies past history of DVT or pulmonary embolism 4. Physical therapy: Weightbearing as tolerated with walker 5. H & H: 10.0/28.0, asymptomatic. Lab work has been reviewed and currently stable. At this time there is no need for treatment. 6. Reactive Leukocytosis: Resolved currently 8.8 today with white blood cell count yesterday 12.7, afebrile. Patient did receive decadron intra-operatively. No clinical signs of infection. 7. Postoperative wound drainage: Patient's compressive dressing was removed today in which there was no active drainage. There was minimal drainage on the dressing since being replaced yesterday. We limited physical therapy. Patient had a Mepilex dressing placed over the incision. He can shower and get this wet. He was given an additional Mepilex dressing in case it needed to be changed at home. If there is any drainage at home he is to contact [facility]. 8. Continue antibiotics while following cultures: Patient will continue with doxycycline for 2 weeks postoperatively while following cultures. Microbiology results were reviewed and there is currently been no growth and no organisms seen on cultures and Gram stain. No cultures available currently. I discussed with the patient potential side effects with the doxycycline including hypersensitivity to the sunlight and must take appropriate precautions. Also recommended probiotic while taking the antibiotic for 2 weeks postoperatively. Patient voiced understanding and agreement. 9. Encouraged incentive spirometry 10. Continue postoperative medical management per medicine: Patient had a slight bump in his kidney function in which she is currently with BUN at 26 and creatinine 1.37. Preoperatively BUN was 25 and creatinine 1.20. 11. Postoperative constipation: Patient has had a bowel movement in the hospital. Stool softener will be used as needed 12. Disposition: Patient did require additional night stay secondary to draining wound. This has resolved and patient has regular Mepilex dressing in place now. He can shower and get this wet. He is given another dressing in case change needs to occur at home. If there is any further drainage he will contact [facility]. He has already had prescription sent to the pharmacy in which his is already picked up. He will continue medications as discussed. He will follow-up per postoperative instructions. I am having case preparer and liner moved patient's physical therapy appointment from tomorrow December 04, 2023 and rescheduled to Thursday, December 07, 2023. Upon discharge patient will contact our office with any concerns or questions. All questions were answered from patient and his today. I have reviewed the [place] Automated Rx Reporting System (OARRS) report for this patient for refill pattern and other prescriber involvement as part of the appropriate surveillance for the provision of acute and chronic controlled medications. The report was requested and reviewed on the date of this entry, and was considered in the prescribing process This dictation was created using voice recognition software. Phonetic and/or grammatical errors may exist. Status post revision of total replacement of right knee Orders: Physical Therapy Outpatient Eval & Treat Digitally Signed by LENKA DEXTER PA-C on 12/03/2023 01:20 PM [facility] 12-03-2023 Note Date of Service December 03, 2023 Subjective The patient was sitting in bed upon examination with his present. Patient denies any chest pain, shortness of breath, dizziness, lightheadedness, nausea or vomiting, or calf pain. No adverse overnight events. Pain has been controlled on medications. Patient did require an additional night stay secondary to drainage from the right knee. Patient required compressive dressing with ABD and Neva wrap with sandbag. We limited physical therapy with range of motion. Today patient has been doing well. Pain has been very well-controlled. Upon removal of the Neva wrap there was minimal drainage on the ABD and dressing. There was no active drainage present. A new Mepilex dressing was then placed over the right incision. Patient's cultures have been negative. Objective Vitals and Measurements T: 36.5 C (Oral) TMIN: 36.3 C (Oral) TMAX: 36.9 C (Oral) HR: 66 RR: 16 BP: 102/64 SpO2: 98% Intake and Output 7AM Yesterday to 7AM Today Intake and Output (Last 24 hours) Intake Oral Intake 300.00 Supplement Intake 100.00 Output Urine Voided 150.00 Stool Count 2.00 Urine Count 2.00 Total Summary Total Intake 400.00 Total Output 150.00 Fluid Balance 250.00 Physical Exam Vital signs stable, afebrile SCDs and BALTA hose were in place bilaterally Patient is able to plantarflex and dorsiflex actively Sensation is intact to saphenous, sural, superficial and deep peroneal, and tibial distribution Compressive Neva wrap dressing was removed and there was no active drainage. Minimal old drainage on dressing. A new Mepilex dressing was placed. Negative signs and symptoms of DVT, negative Homans bilaterally Weight Dosing Weight: 97.1 kg (12/01/23) Dosing Weight: 97.1 kg (12/01/23) Medications Medications (23) Active Scheduled: (13) aspirin 81 mg Chewable 81 mg 1 tab(s), Oral, BIDM atorvastatin 40 mg tablet 80 mg 2 tab(s), Oral, Daily clopidogrel 75 mg Tablet 75 mg 1 tab(s), Oral, Daily docusate sodium 100 mg Capsule 100 mg 1 cap(s), Oral, BID docusate-senna (Senokot S) 50 mg-8.6 mg Tablet 2 tab(s), Oral, BID doxycycline hyclate 100 mg Capsule 100 mg 1 cap(s), Oral, q12h famotidine 20 mg tablet 20 mg 1 tab(s), Oral, qDay losartan 50 mg tablet 50 mg 1 tab(s), Oral, qDay magnesium hydroxide 8% Suspension 30 mL UD 30 mL, Oral, Daily metoprolol succinate 25 mg ER tablet 25 mg 1 tab(s), Oral, qDay multivitamin (Myadec) with minerals Therapeutic Multiple Vitamins with Minerals Tablet 1 tab(s), Oral, qDayM sertraline 50 mg tablet 100 mg 2 tab(s), Oral, qDay tamsulosin 0.4 mg Capsule 0.4 mg 1 cap(s), Oral, qDayPC Continuous: (1) Lactated Ringers 1,000 mL 1,000 mL, Intravenous, 100 mL/hr PRN: (9) acetaminophen 325 mg Tablet 650 mg 2 tab(s), Oral, q4h diphenhydramine 25 mg tablet 25 mg 1 tab(s), Oral, q6h diphenhyDRAMINE 50 mg/mL (1 mL) INJ 25 mg 0.5 mL, IV Push, q6h morphine 2 mg/mL 1 mL syringe 2 mg 1 mL, IV Push, q1h ondansetron 2 mg/ 1 mL 2 mL INJ 4 mg 2 mL, IV Push, q8h oxycodone 5 mg tablet (immediate release) 5 mg 1 tab(s), Oral, q4h oxycodone 5 mg tablet (immediate release) 10 mg 2 tab(s), Oral, q4h prochlorperazine 10 mg/2 mL vial 5 mg 1 mL, IV Push, q6h sodium biphosphate-sodium phosphate 19 gm-7 gm Enema 133 mL, Rectal, qDay Lab Results 12/03 05:15 WBC: 8.8 Hgb: 10.0 L Hct: 28.0 L Platelet: 152 Neutrophil %: 64.6 Glucose Level: 115 H Sodium Level: 141 Potassium Level: 4.4 BUN: 29 H Creatinine Lvl (s): 1.33 H 12/02 05:14 WBC: 12.7 H Hgb: 12.0 L Hct: 33.8 L Platelet: 176 Neutrophil %: 87.0 H Glucose Level: 162 H Sodium Level: 138 Potassium Level: 4.2 BUN: 26 H Creatinine Lvl (s): 1.37 H EKG No qualifying data available. Assessment/Plan BPH (benign prostatic hyperplasia) Depression, major, recurrent, mild Hypertension Osteoarthritis Renal insufficiency S/P knee replacement 1. 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 Continue pain medications: Tylenol and oxycodone. We are unable to use nonsteroidal anti-inflammatories. 3. DVT prophylaxis: Take 81 mg aspirin twice daily with food for 4 weeks postoperatively for DVT prophylaxis. Patient denies past history of DVT or pulmonary embolism 4. Physical therapy: Weightbearing as tolerated with walker 5. H & H: 10.0/28.0, asymptomatic. Lab work has been reviewed and currently stable. At this time there is no need for treatment. 6. Reactive Leukocytosis: Resolved currently 8.8 today with white blood cell count yesterday 12.7, afebrile. Patient did receive decadron intra-operatively. No clinical signs of infection. 7. Postoperative wound drainage: Patient's compressive dressing was removed today in which there was no active drainage. There was minimal drainage on the dressing since being replaced yesterday. We limited physical therapy. Patient had a Mepilex dressing placed over the incision. He can shower and get this wet. He was given an additional Mepilex dressing in case it needed to be changed at home. If there is any drainage at home he is to contact [facility]. 8. Continue antibiotics while following cultures: Patient will continue with doxycycline for 2 weeks postoperatively while following cultures. Microbiology results were reviewed and there is currently been no growth and no organisms seen on cultures and Gram stain. No cultures available currently. I discussed with the patient potential side effects with the doxycycline including hypersensitivity to the sunlight and must take appropriate precautions. Also recommended probiotic while taking the antibiotic for 2 weeks postoperatively. Patient voiced understanding and agreement. 9. Encouraged incentive spirometry 10. Continue postoperative medical management per medicine: Patient had a slight bump in his kidney function in which she is currently with BUN at 26 and creatinine 1.37. Preoperatively BUN was 25 and creatinine 1.20. 11. Postoperative constipation: Patient has had a bowel movement in the hospital. Stool softener will be used as needed 12. Disposition: Patient did require additional night stay secondary to draining wound. This has resolved and patient has regular Mepilex dressing in place now. He can shower and get this wet. He is given another dressing in case change needs to occur at home. If there is any further drainage he will contact [facility]. He has already had prescription sent to the pharmacy in which his is already picked up. He will continue medications as discussed. He will follow-up per postoperative instructions. I am having case preparer and liner moved patient's physical therapy appointment from tomorrow December 04, 2023 and rescheduled to Thursday, December 07, 2023. Upon discharge patient will contact our office with any concerns or questions. All questions were answered from patient and his today. I have reviewed the [place] Automated Rx Reporting System (OARRS) report for this patient for refill pattern and other prescriber involvement as part of the appropriate surveillance for the provision of acute and chronic controlled medications. The report was requested and reviewed on the date of this entry, and was considered in the prescribing process This dictation was created using voice recognition software. Phonetic and/or grammatical errors may exist. Status post revision of total replacement of right knee Orders: Physical Therapy Outpatient Eval & Treat Digitally Signed by LENKA DEXTER PA-C on 12/03/2023 01:20 PM [facility] 12-02-2023 Hospital Discharg e instructions Patient Education 12/02/2023 07:38:29 5 - [facility] Post-op Instruction 05/2017 ([id number]) [facility] Post-operative Instructions PLEASE FOLLOW [facility] POST-OP INSTRUCTIONS GIVEN WATCH FOR SIGNS OF INFECTION: call the office ([phone]) if experencing any of the following: (Usually appears 36-48 hours after surgery) Increased temperature (101 degrees Fahrenheit or higher) Redness or swelling Increased uncontrolled pain Foul odor or drainage Calf discomfort Significant swelling Or if having any chest pain, shortness of breath, or difficulty breathing or swallowing call the office or go the nearest Emergency Room. If you have any questions, please call your doctor at the number listed on your follow up instructions. Form: 338A ([id number]) R: 02/15 Follow Up Care 09/17/2023 14:26:46 With:LENKA DEXTER PA-C, Orthopedic Address: [facility] [address] [place] [phone] When:12/07/2023 08:15:00 Comments:This is your post-op appointment. Follow-up as scheduled. With:[facility] Address: [address] [place] [phone] When:12/07/2023 16:00:00 Comments:This is your first physical therapy appointment. Follow-up as scheduled. With:LENKA DEXTER PA-C, Orthopedic Address: [facility] [address] [place] [phone] When:12/14/2023 15:15:00 Comments:This is your post-op appointment. Follow-up as scheduled. [facility] 12-02-2023 Note Date of Service December 02, 2023 Subjective The patient was sitting in bed upon examination. Patient denies any chest pain, shortness of breath, dizziness, lightheadedness, nausea or vomiting, or calf pain. No adverse overnight events. Pain has been controlled on medications. Patient overall is doing well this morning. He states he did not get a great night sleep. He has been able to urinate on his own in which she does have underlying benign prostatic hyperplasia. Patient does have some drainage over the middle one third of the incision. Objective Vitals and Measurements T: 36.7 C (Oral) TMIN: 36.4 C (Oral) TMAX: 36.7 C (Temporal Artery) HR: 70(Monitored) RR: 16 BP: 129/75 SpO2: 94% HT: 186 cm WT: 97.1 kg BMI: 28.07 Intake and Output 7AM Yesterday to 7AM Today Intake and Output (Last 24 hours) Intake Administration Information 869.43 Supplement Intake 360.00 Output Urine Voided 1100.00 Intra-Op EBL 100.00 Urine Count 2.00 Total Summary Total Intake 1229.43 Total Output 1200.00 Fluid Balance 29.43 Physical Exam Vital signs stable, afebrile. Patient currently on room air in no distress SCDs and BALTA hose are in place bilaterally Patient is able to plantarflex and dorsiflex actively Sensation is intact to saphenous, sural, superficial and deep peroneal, and tibial distribution Mepilex dressing had moderate drainage contacting to borders over the middle one third. This was removed and incision was assessed. There is a very slow ooze over the middle one third between 2 shivani. Compressive dressing was placed with ABDs and Neva wrap. Case was discussed with nursing Negative signs and symptoms of DVT, negative Homans bilaterally Weight Dosing Weight: 97.1 kg (12/01/23) Dosing Weight: 97.1 kg (12/01/23) Medications Medications (26) Active Scheduled: (16) acetaminophen 500 mg Tablet 1,000 mg 2 tab(s), Oral, q6hr aspirin 81 mg Chewable 81 mg 1 tab(s), Oral, BIDM atorvastatin 40 mg tablet 80 mg 2 tab(s), Oral, Daily bisacodyl 5 mg EC tablet 10 mg 2 tab(s), Oral, Once clopidogrel 75 mg Tablet 75 mg 1 tab(s), Oral, Daily docusate sodium 100 mg Capsule 100 mg 1 cap(s), Oral, BID docusate-senna (Senokot S) 50 mg-8.6 mg Tablet 2 tab(s), Oral, BID doxycycline hyclate 100 mg Capsule 100 mg 1 cap(s), Oral, q12h famotidine 20 mg tablet 20 mg 1 tab(s), Oral, qDay losartan 50 mg tablet 50 mg 1 tab(s), Oral, qDay magnesium hydroxide 8% Suspension 30 mL UD 30 mL, Oral, Daily metoprolol succinate 25 mg ER tablet 25 mg 1 tab(s), Oral, qDay multivitamin (Myadec) with minerals Therapeutic Multiple Vitamins with Minerals Tablet 1 tab(s), Oral, qDayM ondansetron 2 mg/ 1 mL 2 mL INJ 4 mg 2 mL, IV Push, q8h sertraline 50 mg tablet 100 mg 2 tab(s), Oral, qDay tamsulosin 0.4 mg Capsule 0.4 mg 1 cap(s), Oral, qDayPC Continuous: (1) Lactated Ringers 1,000 mL 1,000 mL, Intravenous, 100 mL/hr PRN: (9) acetaminophen 325 mg Tablet 650 mg 2 tab(s), Oral, q4h diphenhydramine 25 mg tablet 25 mg 1 tab(s), Oral, q6h diphenhyDRAMINE 50 mg/mL (1 mL) INJ 25 mg 0.5 mL, IV Push, q6h morphine 2 mg/mL 1 mL syringe 2 mg 1 mL, IV Push, q1h ondansetron 2 mg/ 1 mL 2 mL INJ 4 mg 2 mL, IV Push, q8h oxycodone 5 mg tablet (immediate release) 5 mg 1 tab(s), Oral, q4h oxycodone 5 mg tablet (immediate release) 10 mg 2 tab(s), Oral, q4h prochlorperazine 10 mg/2 mL vial 5 mg 1 mL, IV Push, q6h sodium biphosphate-sodium phosphate 19 gm-7 gm Enema 133 mL, Rectal, qDay Lab Results 12/02 05:14 WBC: 12.7 H Hgb: 12.0 L Hct: 33.8 L Platelet: 176 Neutrophil %: 87.0 H Glucose Level: 162 H Sodium Level: 138 Potassium Level: 4.2 BUN: 26 H Creatinine Lvl (s): 1.37 H EKG No qualifying data available. Assessment/Plan BPH (benign prostatic hyperplasia) Depression, major, recurrent, mild Hypertension Osteoarthritis S/P knee replacement 1. 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 Continue pain medications: Tylenol and oxycodone. We are unable to use nonsteroidal anti-inflammatories. 3. DVT prophylaxis: Take 81 mg aspirin twice daily with food for 4 weeks postoperatively for DVT prophylaxis. Patient denies past history of DVT or pulmonary embolism 4. Physical therapy: Weightbearing as tolerated with walker 5. H & H: 12.0/33.8, asymptomatic. Lab work has been reviewed and currently stable. At this time there is no need for treatment. 6. Reactive Leukocytosis: currently 12.7, afebrile. Patient did receive decadron intra-operatively. No clinical signs of infection. 7. Postoperative wound drainage: Mepilex dressing was removed today and a compressive dressing was placed using Neva wrap and ABDs. We will keep this on throughout the day and reassess the incision after afternoon therapy. If there is continued drainage we will keep him an additional night to continue to monitor. If there is no further drainage we will then place a 12 inch silver Mepilex dressing and give him an additional dressing to take home. I did discuss this with the nurse. 8. Continue antibiotics while following cultures: Patient will continue with doxycycline for 2 weeks postoperatively while following cultures. Microbiology results were reviewed and there is currently been no growth and no organisms seen on Gram stain. No cultures available currently. I discussed with the patient potential side effects with the doxycycline including hypersensitivity to the sunlight and must take appropriate precautions. Also recommended probiotic while taking the antibiotic for 2 weeks postoperatively. Patient voiced understanding and agreement. 9. Encouraged incentive spirometry 10. Continue postoperative medical management per medicine: Patient had a slight bump in his kidney function in which she is currently with BUN at 26 and creatinine 1.37. Preoperatively BUN was 25 and creatinine 1.20. 11. Postoperative constipation: Discussed with the patient to continue stool softener until first bowel movement. After first bowel movement patient can then take as needed. They were also instructed that if they are not able to have a bowel movement within 3 days they are to contact our office for change of medication. Patient voiced understanding. 12. Disposition: Post case with Dr. Judson Rutledge. At this time we will plan for possible discharge home this afternoon as long as patient does not have continued drainage. We will also have medicine evaluate patient to make sure he is appropriate for discharge. Physical therapy will currently be on board as well and we appreciate any further recommendations. Patient would like his prescriptions E scribed to [facility] in [facility]. He does have outpatient physical therapy established. We will reassess patient's incision this afternoon in which the nurse will reassess the incision. I will contact the nurse this afternoon to discuss his incision and drainage. If there is no further drainage we will place a new Mepilex dressing and possible discharge home this afternoon as long as he is appropriate for discharge. Upon discharge patient will contact our office with any recommendations. If there is continued drainage we will keep him an additional night. We discussed medications in great detail. All questions were answered. Patient also has underlying benign prostatic hyperplasia in which she has been urinating on his own. I have reviewed the [place] Automated Rx Reporting System (OARRS) report for this patient for refill pattern and other prescriber involvement as part of the appropriate surveillance for the provision of acute and chronic controlled medications. The report was requested and reviewed on the date of this entry, and was considered in the prescribing process This dictation was created using voice recognition software. Phonetic and/or grammatical errors may exist. Digitally Signed by LENKA DEXTER PA-C on 12/02/2023 07:34 AM [facility] 12-01-2023 Note ORIGINAL EXAMINATION: TWO XRAY VIEWS OF THE RIGHT KNEE 12/01/2023 1:27 pm COMPARISON: None. HISTORY: ORDERING SYSTEM PROVIDED HISTORY: Reason for Exam: Status Post Arthroplasty FINDINGS: A complete knee prosthesis is identified. The components appear well seated and intact. No acute fracture or dislocation. Gas in the soft tissues is likely postoperative. Surgical shivani overlie the skin anteriorly. Vascular calcifications are shown soft tissues. IMPRESSION: Surgical changes. Interpreted by: Nichelle Olson MD Preliminary Report By: Nichelle Olson MD Electronically signed By Nichelle Olson MD Dictated Date: 12/01/2023 1:36:46 PM Prelim Date: 12/01/2023 1:37:22 PM Sign Date: 12/01/2023 1:37:22 PM Ordering Provider: JUDSON RUTLEDGE [facility] 12-01-2023 Anesthesiology Consult note Patient: LAZARO AMANDA Age: 78 years Sex: Male : 1945 Associated Diagnoses: None Author: INNA TODD WATERMELON HARVESTING SUPERVISOR-OCCUPATIONAL THERAPY INSTRUCTOR Preoperative Information Time of last food or liquid consumption: 12/01/2023 00:00:00 Anesthesia history Patient's history: negative. Family's history: negative. Review of Systems Ear/Nose/Mouth/Throat: Negative. Respiratory: Pleuritic pain. Cardiovascular: CAD, htn. Gastrointestinal: Reflux. Genitourinary: BPH. Endocrine: Negative. Musculoskeletal: Neck pain, OA. Integumentary: Negative. Neurologic: anxiety, depression, [place]. Health Status Allergies: Allergic Reactions (Selected) Severity Not Documented Efudex 2% topical solution- Swelling. Solaraze 3% topical gel- Swelling., Allergies (2) ActiveReaction Efudex 2% topical solutionSwelling Solaraze 3% topical gelSwelling Current medications: (Selected) Inpatient Medications Ordered Decadron: 10 mg, 1 mL, IV Push, AsDirected LR 1,000 mL: 20 mL/hr, Intravenous, Stop: 12/01/23 23:59:00 EST LR 1000 mL: 20 mL/hr, Intravenous Zofran ( PACU ): 4 mg, 2 mL, IV Push, AsDirected, PRN: Nausea/Vomiting ceFAZolin: 2 gram(s), 200 mL/hr, IV Piggyback, PREOP pharm morphine ( PACU ): 2 mg, 1 mL, IV Push, q5min, PRN: Pain, scale 4-6 Prescriptions Prescribed Vitamin D3 1250 mcg (50,000 intl units) oral capsule: 1,250 mcg, 1 cap(s), Oral, qWeek, for 90 day(s), 13 cap(s), 3 Refill(s) sertraline 100 mg oral tablet: 100 mg, 1 tab(s), Oral, qDay, 90 tab(s), 3 Refill(s) Documented Medications Documented Lipitor 80 mg oral tablet: 80 mg, 1 tab(s), Oral, Daily Metoprolol Succinate ER 25 mg oral tablet, extended release: 25 mg, 1 tab(s), Oral, qDay, 30 tab(s), 0 Refill(s) Plavix 75 mg oral tablet: 75 mg, 1 tab(s), Oral, Daily Vitamin B12: unsure what dose, 0 Refill(s) aspirin: 81 mg, Oral, qDay, 0 Refill(s) losartan 50 mg oral tablet: 50 mg, 1 tab(s), Oral, qDay, 0 Refill(s) tamsulosin 0.4 mg oral capsule: 0.4 mg, 1 cap(s), Oral, qDayPC, 0 Refill(s), Medications (6) Active Scheduled: (2) ceFAZolin 2 gram(s), IV Piggyback, PREOP pharm dexamethasone 10 mg/mL (1mL) SDV 10 mg 1 mL, IV Push, AsDirected Continuous: (2) Lactated Ringers 1,000 mL 1,000 mL, Intravenous, 20 mL/hr Lactated Ringers Infusion 1000 mL 1,000 mL, Intravenous, 20 mL/hr PRN: (2) morphine 2 mg/mL 1 mL syringe 2 mg 1 mL, IV Push, q5min ondansetron 2 mg/ 1 mL 2 mL INJ 4 mg 2 mL, IV Push, AsDirected Problem list: Medical Anxiety / SNOMED CT 07649222 / Confirmed Vitamin B12 deficiency / SNOMED CT 920504347 / Confirmed CAD (coronary artery disease) / SNOMED CT 22190511 / Confirmed Depression / SNOMED CT 69628484 / Confirmed Fatigue / SNOMED CT 901841165 / Confirmed GERD (gastroesophageal reflux disease) / SNOMED CT 590043722 / Confirmed Hemorrhoid / SNOMED CT 298209817 / Confirmed 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 / SNOMED CT 4956739279 / Confirmed History of myocardial infarction / SNOMED CT 8857906968 / Confirmed Hypercholesterolemia / SNOMED CT 71106900 / Confirmed Hyperglycemia / SNOMED CT 756784049 / Confirmed Hypertension / SNOMED CT 47612849 / Confirmed Lumbar back pain / SNOMED CT 764574665 / Confirmed Skin cancer / SNOMED CT 6558608199 / Confirmed Muscle twitching / SNOMED CT 005839392 / Confirmed Neck pain on left side / SNOMED CT 362049950 / Confirmed Need for influenza vaccination / SNOMED CT 666228622 / Confirmed Osteoarthritis of left knee / SNOMED CT 4932382005 / Confirmed Cervical spine pain / SNOMED CT 321785407 / Confirmed Right knee pain / SNOMED CT 8738284418 / Confirmed Medicare annual wellness visit, subsequent / SNOMED CT 623054260 / Confirmed Screening for ischemic heart disease / SNOMED CT 399597099 / Confirmed Screening for diabetes mellitus / SNOMED CT 814703513 / Confirmed Screening for prostate cancer / SNOMED CT 872859145 / Confirmed Screening for colon cancer / SNOMED CT 752204764 / Confirmed Encounter for screening colonoscopy / SNOMED CT 900359776 / Confirmed Preoperative clearance / SNOMED CT 942685091 / Confirmed Elevated prostate specific antigen (PSA) / SNOMED CT 1752784230 / Confirmed Depression, major, recurrent, mild / SNOMED CT 296167556 / Confirmed Sensorineural hearing loss, bilateral / SNOMED CT 469872247 / Confirmed Left shoulder pain / SNOMED CT 15279914 / Confirmed Need for hepatitis C screening test / SNOMED CT 350341850 / Confirmed Vitamin D deficiency / SNOMED CT 44748488 / Confirmed, Active Problems (35) Anxiety BPH (benign prostatic hyperplasia) CAD (coronary artery disease) Cervical spine pain Depression Depression, major, recurrent, mild Elevated prostate specific antigen (PSA) Encounter for screening colonoscopy Fatigue GERD (gastroesophageal reflux disease) Hemorrhoid 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 History of myocardial infarction Hypercholesterolemia Hyperglycemia Hypertension Left shoulder pain Lumbar back pain Medicare annual wellness visit, subsequent Muscle twitching Neck pain on left side Need for hepatitis C screening test Need for influenza vaccination Osteoarthritis Osteoarthritis of left knee Preoperative clearance Right knee pain Screening for colon cancer Screening for diabetes mellitus Screening for ischemic heart disease Screening for prostate cancer Sensorineural hearing loss, bilateral Skin cancer Vitamin B12 deficiency Vitamin D deficiency Histories Past Medical History: Active Hypercholesterolemia (96384647) Depression (52690863) CAD (coronary artery disease) (33212840) Skin cancer (1608216894) Comments: 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 Comments: 08/30/2019 9:42 MAGDALENE - Adiit Gamble RN LEFT Tonsillectomy (967389170). Rotator cuff (53408325). Comments: 07/27/2016 18:05 SHARATH HESS bilateral Arthroplasty of the knee (074173027). Comments: 07/27/2016 18:06 SHARATH HESS right Stent (189516994). Comments: 07/27/2016 18:06 SHARATH HESS cardiac x 3 Skin cancer ([id number]). Comments: 07/27/2016 18:06 SHARATH HESS removal of Inguinal hernia (5375293115). Comments: 07/27/2016 18:07 SHARATH HESS right Colonoscopy (050275604). Appendectomy (177356511). Prostate biopsy sample ([id number]). Social History Social & Psychosocial Habits Alcohol 11/10/2023 Use: Current Type: Beer Frequency: 3-5 times per week Substance Abuse 11/10/2023 Use: Never Tobacco 11/10/2023 Tobacco Use: Former smoker, quit more Exposure to Tobacco Smoke Lives in non-smoking home Home/Environment 11/10/2023 Living situation: Home/Independent Nutrition/Health 11/10/2023 Caffeine intake amount: 2-3 cups a day . Physical Examination Vital Signs 12/01/2023 10:35 EST Heart Rate Monitored 56 bpm bpm Respiratory Rate - Anes 3 br/min br/min Systolic Blood Pressure Non-Invasive 92 mmHg mmHg Diastolic Blood Pressure Non-Invasive 59 mmHg mmHg 12/01/2023 10:30 EST Heart Rate Monitored 58 bpm bpm Respiratory Rate - Anes 0 br/min br/min Systolic Blood Pressure Non-Invasive 107 mmHg mmHg Diastolic Blood Pressure Non-Invasive 64 mmHg mmHg 12/01/2023 10:25 EST Respiratory Rate - Anes 0 br/min br/min Systolic Blood Pressure Non-Invasive 125 mmHg mmHg Diastolic Blood Pressure Non-Invasive 69 mmHg mmHg 12/01/2023 10:20 EST Respiratory Rate - Anes 0 br/min br/min Systolic Blood Pressure Non-Invasive 129 mmHg mmHg Diastolic Blood Pressure Non-Invasive 79 mmHg mmHg 12/01/2023 9:19 EST Temperature Temporal Artery 36.7 DegC Peripheral Pulse Rate 60 bpm Respiratory Rate 12 br/min LOW Systolic Blood Pressure Non-Invasive 124 mmHg Diastolic Blood Pressure Non-Invasive 76 mmHg Vital Signs(last 24 hrs) Last Charted Heart Rate [id number] bpm (DEC 01 10:35) SBP92 mmHg (DEC 01 10:35) DBP59 mmHg (DEC 01 10:35) Measurements from flowsheet : Measurements 12/01/2023 9:19 EST Height 186 cm Admission Weight 97.1 kg [place] Body Weight 80.43 kg Admission Body Mass Index 28.07 m2 Pain assessment: Pain Assessment 12/01/2023 10:11 EST Primary Pain Intensity Not Done: See OR Record (Not Done) Primary Pain Intensity Not Done: See OR Record (Not Done) 12/01/2023 9:19 EST Primary Pain Intensity 0 Pain Scale Type 0-10 Pain scale . General: Alert and oriented. Airway: Normal temporomandibular joint mobility. Mallampati classification: II (soft palate, fauces, uvula visible). Head: Normocephalic. Dentition Evaluation: Own teeth. Neck: Supple. Respiratory: Lungs are clear to auscultation. Cardiovascular: Normal rate. Heart Sounds: Normal. Gastrointestinal: Soft. Musculoskeletal Normal range of motion. Integumentary: Intact. Neurologic: Alert, Oriented. Review / Management Results review: No qualifying data available , Lab results 12/01/2023 10:35 EST Heart Rate Monitored 56 bpm bpm Respiratory Rate - Anes 3 br/min br/min Systolic Blood Pressure Non-Invasive 92 mmHg mmHg Diastolic Blood Pressure Non-Invasive 59 mmHg mmHg Oxygen Saturation 95 % % 12/01/2023 10:30 EST Heart Rate Monitored 58 bpm bpm Respiratory Rate - Anes 0 br/min br/min Systolic Blood Pressure Non-Invasive 107 mmHg mmHg Diastolic Blood Pressure Non-Invasive 64 mmHg mmHg Oxygen Saturation 94 % % 12/01/2023 10:25 EST Respiratory Rate - Anes 0 br/min br/min Systolic Blood Pressure Non-Invasive 125 mmHg mmHg Diastolic Blood Pressure Non-Invasive 69 mmHg mmHg 12/01/2023 10:20 EST Respiratory Rate - Anes 0 br/min br/min Systolic Blood Pressure Non-Invasive 129 mmHg mmHg Diastolic Blood Pressure Non-Invasive 79 mmHg mmHg 12/01/2023 10:18 EST SN - CTm - Anesthesia Start Time Anesthesia Start 12/01/2023 10:11 EST Primary Pain Intensity Not Done: See OR Record (Not Done) Primary Pain Intensity Not Done: See OR Record (Not Done) epinephrine Not Done: See OR Record (Not Done) epinephrine Not Done: See OR Record (Not Done) ketorolac Not Done: See OR Record (Not Done) ketorolac Not Done: See OR Record (Not Done) morphine Not Done: See OR Record (Not Done) morphine Not Done: See OR Record (Not Done) povidone iodine topical Not Done: See OR Record (Not Done) ROPivacaine Not Done: See OR Record (Not Done) ROPivacaine Not Done: See OR Record (Not Done) tranexamic acid Not Done: See OR Record (Not Done) 12/01/2023 10:08 EST SN - Proc - Anesthesia Type Spinal, Regional, Local 12/01/2023 10:08 EST SN - Irl - Irrigant Normal Saline SN - Irl - Irrigant Normal Saline SN - Irl - Irrigant Normal Saline SN - IrI - Volume In 450 mL SN - IrI - Volume In 3,000 mL SN - IrI - Volume In 500 mL SN - Irl - Additive CHG SN - Irl - Additive BETADINE 10% SN - IrI - Volume Out 450 mL SN - IrI - Volume Out 3,000 mL SN - IrI - Volume Out 500 mL 12/01/2023 10:07 EST SN - SP - Prep Agents Chloraprep SN - SP - HR - Method Clipped 12/01/2023 10:06 EST SN - PP - Body Position Supine Standard Intra-op 12/01/2023 10:05 EST SN - PTCare - Anti-thromboembolism Erin Sequential Compression Device (SCD) 12/01/2023 10:04 EST SN - Assess - LOC Alert, Awake SN - Assess - Orientation Oriented X 3 SN - Assess - Post-op Skin Integrity Intact/Dry 12/01/2023 10:04 EST SN - MA - Medication NAROPIN 25MG SN - MA - Route of Administration Local SN - MA - By (Single) SN - MA - By (Single) 12/01/2023 10:02 EST SN - GCD - Post-operative Diagnosis UNILATERAL PRIMARY OSTEOARTHRITIS RIGHT KNEE SN - GCD - Case Level Level 6 12/01/2023 10:01 EST SN - CAt - Case Attendee SN - CAt - Case Attendee SN - CAt - Case Attendee SN - CAt - Case Attendee SN - CAt - Case Attendee SN - CAt - Case Attendee SN - CAt - Case Attendee SN - CAt - Case Attendee SN - CAt - Case Attendee SN - CAt - Case Attendee SN - CAt - Case Attendee SN - CAt - Case Attendee SN - CAt - Case Attendee SN - CAt - Case Attendee SN - CAt - Role Performed OCCUPATIONAL THERAPY INSTRUCTOR SN - CAt - Role Performed Stem Roller 1 SN - CAt - Role Performed C4 Planner 1 SN - CAt - Role Performed Scrub 1 SN - CAt - Role Performed Physician Infantry Unit Leader SN - CAt - Role Performed Insurance Agency Owner SN - CAt - Role Performed Observer 12/01/2023 9:59 EST SN - Proc - Actual Procedure ROBOTIC ASSISTED RIGHT PARTIAL TO TOTAL KNEE ARTHROPLASTY, INTRAINCISIONAL PINS SN - CAt - Case Attendee SN - CAt - Case Attendee SN - CAt - Role Performed Primary Surgeon 12/01/2023 9:54 EST SN - Preop - CTm Pt in SDS Room 12/01/2023 9:00 12/01/2023 9:53 EST citric acid-sodium citrate Not Done: Other (Not Done) 12/01/2023 9:49 EST celecoxib 400 mg mg 12/01/2023 9:48 EST famotidine 20 mg mg 12/01/2023 9:25 EST Lactated Ringers Injection 1,000 mL mL 12/01/2023 9:24 EST Wrist Left 20 gauge Peripheral IV Activity: Insert new site Peripheral IV Dressing Condition: Clean, Dry, Intact Peripheral IV Dressing Activity: Transparent dressing Peripheral IV Line Status/Patency: Continuous infusion Peripheral IV Site Condition: No complications Peripheral IV Equipment: Extension set Peripheral IV Number of Attempts: 1 12/01/2023 9:19 EST ABO/Rh Interp A POS Antibody Screen Gel Negative ABSC Height 186 cm Admission Weight 97.1 kg [place] Body Weight 80.43 kg Admission Body Mass Index 28.07 m2 Temperature Temporal Artery 36.7 DegC Peripheral Pulse Rate 60 bpm Respiratory Rate 12 br/min LOW Systolic Blood Pressure Non-Invasive 124 mmHg Diastolic Blood Pressure Non-Invasive 76 mmHg Primary Pain Intensity 0 Pain Scale Type 0-10 Pain scale Heart Rhythm Regular Dorsalis Pedis Pulse, Left 2+ Normal Dorsalis Pedis Pulse, Right 2+ Normal Respirations Unlabored All Lobes Breath Sounds Clear Oxygen Therapy Room air Oxygen Saturation 97 % Abdomen Description Non-distended, Soft Bowel Sounds All Quadrants Present Skin Temperature Warm Skin Description [place] Skin Integrity Intact Mucous Membrane Color [place] Neurological Symptoms Patient denies Characteristics of Speech Clear Level of Consciousness Alert Strength All Extremities Strong Affect/Behavior Appropriate, Calm, Cooperative Orientation Oriented x 4 Standard Safety ID band on, Allergy Band on, Call device within reach, Bed in low position, Non-Slip footwear 12/01/2023 9:07 EST Designated Person #1 We May Share PHI Designated Person #1 We May Share PHI Designated Person #1 Relationship Spouse Designated Person #2 We May Share PHI ROMAN Designated Person #2 Relationship Family member Privacy Restrictions Requested None Status N/A Sensory Deficits Hearing deficit, left ear, Hearing deficit, right ear Sleep Apnea Snore No Sleep Apnea Tired No Sleep Apnea Obstruction No Sleep Apnea Pressure Yes Sleep Apnea BMI No Sleep Apnea Age Yes Sleep Apnea Neck No Sleep Apnea Gender Yes Sleep Apnea Score 3 Diagnosed With Sleep Apnea No Advanced Directives No - refuses information Infectious Disease Symptoms Patient states no symptoms Infectious Disease Recent Exposure No Alcohol and Drug Use No Employee of Institutional Living No Health Care Employee No History of Exposure to TB No History of Positive Chest X-Ray for TB No History of Positive TB Skin Test No Homeless No Known Immunosuppression No Recent Immigrant No Resident of Institutional Living No Bloody Sputum No Fatigue No Fever No Loss of Appetite No Night Sweats No Persistent Cough > 3 Weeks No Weight Loss No Pre-Op Patient Education NPO after midnight, No jewelry, Responsible Green Party, Aware of surgery location, Pre-op education done, 1 bottle CHG wash with instructions given, Instructed to take ordered medications, Total Joint Replacement/Colorectal Book Given, Anesthesia block education provided SN - Preprocedure Comments Spoke with patient, Verbalizes/Nonverbally indicates understanding, Other: LOSARTAN, METOPROLOL Barriers to Learning None evident Teaching Method Explanation, Printed materials Preferred Spoken Language Kyrgyz Preferred Written Language Kyrgyz Teaching Evaluation Verbalizes/Nonverbally indicates understanding Total Joint Book Given Yes Safety Brochure Information Reviewed Yes Maura Arellano Video Viewed No Information Given by Patient Patient's Current Physicians Patient's Current Physicians Discharge To, Anticipated Home independently Prev Test Positive/Diagnosis w/COVID-19 Yes Previous COVID-19 Positive Date 2022 Current Quarantine/Isolated any Illness No Any Contact with Sick Animals/Birds No Traveled Anywhere in Last 30 Days No Lost Weight Unintentionally Recently No Eat Poorly Due to Decreased Appetite No Total MST Score 0 N/A Personal Devices, Patient Valuables Dentures, partial plate Anesthesia/Transfusions Prior anesthesia Admission Note-Nursing Same Day Patient History 12/01/2023 9:00 EST Urinary Elimination Voiding, no difficulties IV Present Present Allergies Yes Anesthesia Extension Set Applied Yes Consent Form Signed Yes Patient Dressed In Hospital gown CHG Preoperative Wash/Wipe Night before procedure, Day of procedure Preop Nasal Swab Povidone-Iodine CHG Skin Prep Completed for Eligible Surgery History & Physical Update On Chart Yes History & Physical On Chart Yes Obstructive Sleep Apnea Assess Completed Yes Belongings At Bedside Pants, Rings, Shirt, Shoes Personal Home Medications Received No home medications were brought in NPO Status Maintained Allergy Band on and Verified Yes Patient ID Band on and Verified Yes Implants Verified Yes Pacemaker/AICD Verified Yes Site Verified by Patient/Family Yes Anesthesia Consent Signed Yes Blood Consent Signed Yes Last Fluid Intake 11/30/2023 19:00 Last Food Intake 11/30/2023 20:00 . Assessment and Plan [place] [employer] Anesthesiologists (ASA) physical status classification: Class III. Anesthetic Preoperative Plan Premedication: intravenous. Anesthetic technique: Spinal. Induction: intravenously. Maintenance airway: 40% FM. Postoperative pain management: Per surgeon. Informed consent: signed by patient. Digitally Signed by NINA TODD on 12/01/2023 10:46 AM [facility] 06-02-2023 Instructions Teena Crockett PA-C - 06/02/2023 10:49 AM EDT > 1 year Appt w/ B. JABARI Crockett, SAQIB ENCARNACION with PSA prior documented in this encounter [facility] 06-02-2023 History of Presen t illness Narrative Images from the original note were not included. [facility] ESTABLISHED PATIENT CLINIC NOTE Some elements copied from his previous note, which have been updated where appropriate, and all reflect current medical decision making from date of this visit. SERVICE DATE: 06/02/2023 SERVICE TIME: 10:48 AM NAME: Lazaro Amanda CHIEF COMPLAINT: Annual BPH Follow -up and refills HISTORY OF PRESENT ILLNESS: Lazaro Amanda is a 77 year old male an established patient following up for Annual BPH Follow -up and refills The patient reports he is doing quite well m no new LUTs and medication working well He has state he wishes not to have any furthe PSA a Component Latest Ref Rng & Units 12/19/2013 12/21/2014 12/24/2015 06/24/2016 07/15/2017 10/02/2020 05/27/2022 05/28/2023 PSA <2.60 ng/mL 6.08 (H) 7.76 (H) 8.47 (H) 8.01 (H) 7.58 (H) 8.30 (H) 9.07 (H) PSA Screening <2.60 ng/mL 8.45 (H) ISO PSA 3% LUTS: Non new LUTs Other symptoms: ED - no LABS: No results found for: HCT PSA (ng/mL) Date Value 05/27/2022 9.07 10/02/2020 8.30 07/15/2017 7.58 06/24/2016 8.01 12/24/2015 8.47 PSA Screening (ng/mL) Date Value 05/28/2023 8.45 No results found for: TESTOST PSA (ng/mL) Date Value 05/27/2022 9.07 10/02/2020 8.30 07/15/2017 7.58 06/24/2016 8.01 12/24/2015 8.47 PSA Screening (ng/mL) Date Value 05/28/2023 8.45 No results found for: CREAT MEDICATIONS: tamsulosin (FLOMAX) 0.4 mg Take 1 capsule by mouth once daily. losartan (COZAAR) 50 mg tablet Take 50 mg by mouth once daily. iv contrast (will be provided with radiology test) MRI Prostate Inject, intravenously, once for 1 dose. No IV access, insert saline lock prior to the beginning of sedation, infusion, injection of imaging exam. Discontinue saline lock post exam. If Pt. has a central line or IVAD, may access for administration according to line specific nursing protocol. Once exam is complete flush line and de-access according to line specific nursing protocol in the MR contrast administration guidelines link. aspirin 81 mg ORAL chewable tablet Take 1 tablet by mouth once daily. clopidogrel (PLAVIX) 75 mg tablet take one tablet daily atorvastatin (LIPITOR) 80 mg tablet take one tablet daily metoprolol tartrate 25 mg ORAL tablet take one tablet twice daily sertraline hcl(ZOLOFT 100 MG TAB) Take one(1) tablet daily. lisinopril (ZESTRIL, PRINIVIL) 10 mg tablet Take 10 mg by mouth once daily. PAST MEDICAL HISTORY: PAST MEDICAL HISTORY Diagnosis Date Depression Elevated prostate specific antigen (PSA) Essential hypertension Heart attack (HCC) 08/13/2010 History of BPH PAST SURGICAL HISTORY: PAST SURGICAL HISTORY Procedure Laterality Date PAST SURGICAL HISTORY OF knee replacement PAST SURGICAL HISTORY OF rotator cuff repair STENT PLACEMENT three stents/cardiac FAMILY HISTORY: FAMILY HISTORY Problem Relation Age of Onset Heart disease Mother Ischemic Heart Disease Father Pancreatic Cancer Brother Prostate Cancer Brother Prostate Cancer Brother SOCIAL HISTORY: Social Connections: Not on file REVIEW OF SYSTEMS: GENERAL: No fever, chills, weight loss, or fatigue. All other systems reviewed and are negative PHYSICAL EXAMINATION: Blood pressure 114/70, pulse 72, temperature 36.7 C (98 F), height 188 cm (6' 2 ), weight 97 kg (213 lb 12.8 oz), SpO2 96 %. GENERAL: WNL nutrition, no deformities, healthy appearing PROBLEM LIST REVIEW: Yes LABS: Results for orders placed or performed in visit on 06/02/23 UA DIP, URINE (POC) Result Value Ref Range GLUCOSE UA (POCT) Negative Negative mg/dL BILIRUBIN UA (POCT) Negative Negative KETONE UA (POCT) Negative Negative mg/dL SPECIFIC GRAVITY UA (POCT) 1.025 1.005 - 1.030 HEMOGLOBIN/BLOOD UA (POCT) Trace-lysed (A) Negative PH UA (POCT) 5.0 4.5 - 8.0 PROTEIN UA (POCT) Negative Negative mg/dL UROBILINOGEN UA (POCT) 0.2 Normal E.U./dL NITRITE UA (POCT) Negative Negative LEUKOCYTES UA (POCT) Negative Negative COLOR UA (POCT) Dark yellow CLARITY UA (POCT) Clear PROCEDURES: PVR: 0 ml IMPRESSION/PLAN: 77 year old male with 1. Elevated prostate specific antigen (PSA) - ICD9: 790.93, ICD10: R97.20 (primary diagnosis) 2. Urinary frequency - ICD9: 788.41, ICD10: R35.0 3. Urinary incontinence, unspecified type - ICD9: 788.30, ICD10: R32 Flomax refilled > 1 year Appt w/ B. JABARI Crockett MT, PA-C for annual follow-up and refills. JABARI Polo MT, PA-C Patient's post-void bladder scan: 0 ML. Ceci Oswald MA documented in this encounter [facility] 05-20-2023 Miscellaneous Notes Images from the original note were not included. Teena Crockett PA-C [facility] Pool 1 hour ago (11:41 AM) Short Script sent, but needs appointment before more refills. Thank you, Nya Called patient. Verified name and date of . Patient informed- verbalizes understanding. Lana Yarbrough LPN Patient phones requesting refills as follows: Requested Prescriptions Pending Prescriptions Disp Refills tamsulosin (FLOMAX) 0.4 mg 90 capsule 3 Sig: Take 1 capsule by mouth once daily. Second request. Patient is scheduled for an office visit on 06/02/2023. If the prescription cannot be filled, please call the patient and let him know at [phone]. Please review and advise. Minna Sparks RN documented in this encounter [facility] 09-15-2022 Miscellaneous Notes Received fax from [facility] requesting records. Faxed most recent urology office visit notes (05/30/2022). Lana Yarbrough LPN documented in this encounter [facility] 06-04-2022 Miscellaneous Notes Pt viewed provider message on [employer]. Ceci Oswald Called patient. No answer- left message. Lana Yarbrough LPN Called patient. No answer and unable to leave message. [employer] message sent. Lana Yarbrough LPN ----- Message from Teena Crockett PA-C sent at 06/02/2022 6:22 PM EDT ----- Please let patient know his ISO PSA is < 6% and no prostate biopsy recommended. JABARI Polo, SAQIB ENCARNACION documented in this encounter [facility] 05-30-2022 History of Presen t illness Narrative Images from the original note were not included. [facility] Some elements copied from my previous note, which have been updated where appropriate, and all reflect current medical decision making from date of this visit. CC: Elevated PSA HPI Lazaro Amanda is a 76 year old male, who has a history of BPH with LUTS. Currently taking Flomax daily Patient states no LUTS today PSA - today 9.07 lower than previous, we discussed IsoPSA and he would like to do the test. He had a benign biopsy in 2016 and ordered a Prostate MRI, but his insurance denied it. Current Tx: Flomax Previous Studies: Prostate Biopsy - Negative - in 2016 LAB: No results found for: TESTOST No results found for: TESTFREE PSA (ng/mL) Date Value 05/27/2022 9.07 10/02/2020 8.30 07/15/2017 7.58 06/24/2016 8.01 09/12/2021 - 10.19 07/2017 - 8.71 No results found for: CREAT No results found for: HCT IMAGING: No imaging today ALLERGIES: Solaraze [Diclofenac Sodium] CURRENT MEDICATIONS: Current Outpatient Medications Medication Sig Dispense Refill losartan (COZAAR) 50 mg tablet Take 50 mg by mouth once daily. tamsulosin (FLOMAX) 0.4 mg TAKE 1 CAPSULE BY MOUTH ONCE DAILY 90 capsule 3 aspirin 81 mg ORAL chewable tablet Take 1 tablet by mouth once daily. 0 clopidogrel (PLAVIX) 75 mg tablet take one tablet daily atorvastatin (LIPITOR) 80 mg tablet take one tablet daily metoprolol tartrate 25 mg ORAL tablet take one tablet twice daily sertraline hcl(ZOLOFT 100 MG TAB) Take one(1) tablet daily. 0 iv contrast (will be provided with radiology test) MRI Prostate Inject, intravenously, once for 1 dose. No IV access, insert saline lock prior to the beginning of sedation, infusion, injection of imaging exam. Discontinue saline lock post exam. If Pt. has a central line or IVAD, may access for administration according to line specific nursing protocol. Once exam is complete flush line and de-access according to line specific nursing protocol in the MR contrast administration guidelines link. 1 Each 0 lisinopril (ZESTRIL, PRINIVIL) 10 mg tablet Take 10 mg by mouth once daily. No current facility-administered medications for this visit. REVIEW OF SYSTEMS GENERAL:SEE HPI, No weight loss, malaise or fevers. GENITOURINARY: No history of dysuria, frequency or incontinence The remainder of the ROS was negative. PHYSICAL EXAMINATION Blood pressure 138/74, pulse 72, temperature 36.4 C (97.6 F), temperature source Temporal, resp. rate 16, height 188 cm (6' 2 ), weight 98 kg (216 lb), SpO2 98 %. General appearance: Well appearing, alert, in no acute distress, well-hydrated, well nourished IMPRESSION/PLAN: > History of BPH with LUTS - stable PSA > Family history of CaP > Prostate Biopsy - Benign - 2016 > PSA today 9.07 > Iso PSA JABARI Polo, ALYSHA, SAQIB CC Post Void Residual HPI: Lazaro Amanda is a 76 year old male. The patient is here now for an appointment with Teena Crockett, JABARI, MT, PA-COV. Procedure: Explained procedure to patient and verbalizes understanding. Performed a PVR. Patient urinated and instructed to empty bladder as much as possible just prior to having PVR done using bladder ultrasound scanner. Results of scan: 35 mL The patient tolerated the procedure well. Plan: Appointment with Teena. documented in this encounter [facility] 01-03-2022 Hospital Discharg e instructions Patient Education 01/03/2022 12:37:58 Colon Polyps Colon Polyps Polyps are tissue growths inside the body. Polyps can grow in many places, including the large intestine (colon). A polyp may be a round bump or a mushroom-shaped growth. You could have one polyp or several. Most colon polyps are noncancerous (benign). However, some colon polyps can become cancerous over time. Finding and removing the polyps early can help prevent this. What are the causes? The exact cause of colon polyps is not known. What increases the risk? You are more likely to develop this condition if you: Have a family history of colon cancer or colon polyps. Are older than 50 or older than 45 if you are . Have inflammatory bowel disease, such as ulcerative colitis or Crohn's disease. Have certain hereditary conditions, such as: ?Familial adenomatous polyposis. ?Montoya syndrome. ?Turcot syndrome. ?Peutz Jeghers syndrome. Are overweight. Smoke cigarettes. Do not get enough exercise. Drink too much alcohol. Eat a diet that is high in fat and red meat and low in fiber. Had childhood cancer that was treated with abdominal radiation. What are the signs or symptoms? Most polyps do not cause symptoms. If you have symptoms, they may include: Blood coming from your rectum when having a bowel movement. Blood in your stool. The stool may look dark red or black. Abdominal pain. A change in bowel habits, such as constipation or diarrhea. How is this diagnosed? This condition is diagnosed with a colonoscopy. This is a procedure in which a lighted, flexible scope is inserted into the anus and then passed into the colon to examine the area. Polyps are sometimes found when a colonoscopy is done as part of routine cancer screening tests. How is this treated? Treatment for this condition involves removing any polyps that are found. Most polyps can be removed during a colonoscopy. Those polyps will then be tested for cancer. Additional treatment may be needed depending on the results of testing. Follow these instructions at home: Lifestyle Maintain a healthy weight, or lose weight if recommended by your health care provider. Exercise every day or as told by your health care provider. Do not use any products that contain nicotine or tobacco, such as cigarettes and e-cigarettes. If you need help quitting, ask your health care provider. If you drink alcohol, limit how much you have: ?0 1 drink a day for women. ? 0 2 drinks a day for men. Be aware of how much alcohol is in your drink. In the [place] one drink equals one 12 oz bottle of beer (355 mL), one 5 oz glass of wine (148 mL), or one 1 oz shot of hard liquor (44 mL). Eating and drinking Eat foods that are high in fiber, such as fruits, vegetables, and whole grains. Eat foods that are high in calcium and vitamin D, such as milk, cheese, yogurt, eggs, liver, fish, and broccoli. Limit foods that are high in fat, such as fried foods and desserts. Limit the amount of red meat and processed meat you eat, such as hot dogs, sausage, mary, and lunch meats. General instructions Keep all follow-up visits as told by your health care provider. This is important. ?This includes having regularly scheduled colonoscopies. ?Talk to your health care provider about when you need a colonoscopy. Contact a health care provider if: You have new or worsening bleeding during a bowel movement. You have new or increased blood in your stool. You have a change in bowel habits. You lose weight for no known reason. Summary Polyps are tissue growths inside the body. Polyps can grow in many places, including the colon. Most colon polyps are noncancerous (benign), but some can become cancerous over time. This condition is diagnosed with a colonoscopy. Treatment for this condition involves removing any polyps that are found. Most polyps can be removed during a colonoscopy. This information is not intended to replace advice given to you by your health care provider. Make sure you discuss any questions you have with your health care provider. Document Released: 06/24/2005 Document Revised: 01/13/2019 Document Reviewed: 01/13/2019 [employer] Patient Education 2020 [employer]. 01/03/2022 12:37:52 Colonoscopy, Adult, Care After, Ohei-yv-Tdia Colonoscopy, Adult, Care After This sheet gives you information about how to care for yourself after your procedure. Your doctor may also give you more specific instructions. If you have problems or questions, call your doctor. What can I expect after the procedure? After the procedure, it is common to have: A small amount of blood in your poop for 24 hours. Some gas. Mild cramping or bloating in your belly. Follow these instructions at home: General instructions For the first 24 hours after the procedure: ?Do not drive or use machinery. ?Do not sign important documents. ?Do not drink alcohol. ?Do your daily activities more slowly than normal. ?Eat foods that are soft and easy to digest. Take [id number] or prescription medicines only as told by your doctor. To help cramping and bloating: Try walking around. Put heat on your belly (abdomen) as told by your doctor. Use a heat source that your doctor recommends, such as a moist heat pack or a heating pad. ?Put a towel between your skin and the heat source. ?Leave the heat on for 20 30 minutes. ?Remove the heat if your skin turns bright red. This is especially important if you cannot feel pain, heat, or cold. You can get burned. Eating and drinking Drink enough fluid to keep your pee (urine) clear or pale yellow. Return to your normal diet as told by your doctor. Avoid heavy or fried foods that are hard to digest. Avoid drinking alcohol for as long as told by your doctor. Contact a doctor if: You have blood in your poop (stool) 2 3 days after the procedure. Get help right away if: You have more than a small amount of blood in your poop. You see large clumps of tissue (blood clots) in your poop. Your belly is swollen. You feel sick to your stomach (nauseous). You throw up (vomit). You have a fever. You have belly pain that gets worse, and medicine does not help your pain. Summary After the procedure, it is common to have a small amount of blood in your poop. You may also have mild cramping and bloating in your belly. For the first 24 hours after the procedure, do not drive or use machinery, do not sign important documents, and do not drink alcohol. Get help right away if you have a lot of blood in your poop, feel sick to your stomach, have a fever, or have more belly pain. This information is not intended to replace advice given to you by your health care provider. Make sure you discuss any questions you have with your health care provider. Document Released: 10/31/2011 Document Revised: 07/29/2018 Document Reviewed: 06/22/2017 [employer] Patient Education 2020 [employer]. Follow Up Care 10/14/2021 14:51:24 With:SUZANNE DYSON MD, Surgery Address: [id number] When: Unknown Comments:Follow-up as needed [facility] Evaluation + Plan note Future Appointments Appointment Date:03/12/2022 10:30:00 AM Scheduled Provider:DENNIS SHAIKH DO Location:[facility] Appointment Type:PC OV [facility] Evaluation + Plan note Future Appointments Appointment Date:09/12/2022 10:00:00 AM Scheduled Provider:DENNIS SHAIKH DO Location:[facility] Appointment Type:PC Wellness Medicare Future Scheduled TestsXR Shoulder Minimum 2 Views Left 03/12/22XR Spine Lumbar W/Obliques 4 Views 03/12/22 [facility] Evaluation + Plan note Future Appointments Appointment Date:03/17/2023 10:30:00 AM Scheduled Provider:DENNIS SHAIKH DO Location:[facility] Appointment Type: OV Future Scheduled TestsComplete Metabolic Panel 05/13/22XR Shoulder Minimum 2 Views Left 03/12/22XR Spine Lumbar W/Obliques 4 Views 03/12/22 [facility] Evaluation + Plan note Future Appointments Appointment Date:05/19/2023 11:30:00 AM Scheduled Provider:DENNIS SHAIKH DO Location:[facility] Appointment Type:PC OV Appointment Date:09/16/2023 11:00:00 AM Scheduled Provider:DENNIS SHAIKH DO Location:[facility] Appointment Type:PC Wellness Medicare Future Scheduled TestsComplete Metabolic Panel 05/13/22 [facility] Evaluation + Plan note Future Appointments Appointment Date:09/16/2023 11:00:00 AM Scheduled Provider:DENNIS SHAIKH DO Location:[facility] Appointment Type:PC Wellness Medicare Future Scheduled TestsProstate Specific Antigen 05/19/23Thyroid Stimulating Hormone 05/19/23Vitamin B12 Level 05/19/23Lipid Profile 05/19/23Vitamin D Level 05/19/23Complete Metabolic Panel 05/19/23 [facility] Evaluation + Plan note Future Appointments Appointment Date:11/10/2023 11:00:00 AM Scheduled Provider:DENNIS SHAIKH DO Location:[facility] Appointment Type:PC OV Pre Op Future Scheduled TestsProstate Specific Antigen 05/19/23Thyroid Stimulating Hormone 05/19/23Vitamin B12 Level 05/19/23Lipid Profile 05/19/23Vitamin D Level 05/19/23Complete Metabolic Panel 05/19/23 [facility] Evaluation + Plan note Future Appointments Appointment Date:12/07/2023 04:00:00 PM Scheduled Provider: Luz Marina:[facility] Appointment Type:PT Outpatient Evaluation Appointment Date:03/17/2024 08:30:00 AM Scheduled Provider:DENNIS SHAIKH DO Location:[facility] Appointment Type:PC OV Future Scheduled TestsProstate Specific Antigen 05/19/23Thyroid Stimulating Hormone 05/19/23Vitamin B12 Level 05/19/23Lipid Profile 05/19/23Vitamin D Level 05/19/23Complete Metabolic Panel 05/19/23 [facility] Evaluation + Plan note Future Appointments Appointment Date:03/17/2024 08:30:00 AM Scheduled Provider:DENNIS SHAIKH DO Location:[facility] Appointment Type:PC OV Future Scheduled TestsProstate Specific Antigen 05/19/23Thyroid Stimulating Hormone 05/19/23Vitamin B12 Level 05/19/23Lipid Profile 05/19/23Vitamin D Level 05/19/23Complete Metabolic Panel 05/19/23 [facility] Evaluation note Diagnosis Elevated prostate specific antigen (PSA)- Primary documented in this encounter [facility] note* Diagnosis Elevated prostate specific antigen (PSA)- Primary documented in this encounter [facility] note* Diagnosis Elevated prostate specific antigen (PSA)- Primary Urinary frequency Urinary incontinence, unspecified type documented in this encounter [facility] note* Diagnosis Acute cystitis without hematuria- Primary Acute cystitis Elevated prostate specific antigen (PSA) documented in this encounter [facility] note* Diagnosis Benign prostatic hyperplasia with urinary frequency- Primary Elevated prostate specific antigen (PSA) [facility] Narrative No data available for this section [facility] Hospital Discharge instructions No data available for this section [facility] Progress note No data available for this section [facility] Summary Purpose Family History No Family History Records Found Advance Directives No Advanced Directives Records FoundNo Advanced Directives Records Found Additional Source Comments Care Team (unrecognized sect ion and content) Street Supervisor Relationship Specialty Start Date End Date Anu Dominguez PCP - General Family Practice 12/22/13 Street Supervisor Relationship Specialty Start Date End Date Anu Dominguez PCP - General Family Practice 12/22/13 Street Supervisor Relationship Specialty Start Date End Date Anu Dominguez PCP - General Family Practice 12/22/13 Street Supervisor Relationship Specialty Start Date End Date Anu Dominguez PCP - General Family Practice 12/22/13 Street Supervisor Relationship Specialty Start Date End Date Anu Dominguez Brianna PCP - General Family Medicine 12/22/13 Street Supervisor Relationship Specialty Start Date End Date Anu Dominguez Brianna PCP - General Family Medicine 12/22/13 Street Supervisor Relationship Specialty Start Date End Date Anu Dominguez Brianna PCP - General Family Medicine 12/22/13 Street Supervisor Relationship Specialty Start Date End Date Anu Dominguez Brianna PCP - General Family Medicine 12/22/13 Street Supervisor Relationship Specialty Start Date End Date Dennis Shaikh DO [address] [place] [address] PCP - General Family Medicine 06/07/24 Street Supervisor Relationship Specialty Start Date End Date Dennis Shaikh DO [address] [place] [address] PCP - General Family Medicine 06/07/24 Source Comments (unrecognize d section and content) In the event this informatio n is protected by the Federal Confidentiality of Alcohol and Drug Abuse Patient Records regulations: The Federal rules restrict any use of the information to criminally investigate or prosecute any alcohol or drug abuse patient.[facility] the event this information is protected by the Federal Confidentiality of Alcohol and Drug Abuse Patient Records regulations: The Federal rules restrict any use of the information to criminally investigate or prosecute any alcohol or drug abuse patient.[facility] Hospital[facility] the event this information is protected by the Federal Confidentiality of Alcohol and Drug Abuse Patient Records regulations: The Federal rules restrict any use of the information to criminally investigate or prosecute any alcohol or drug abuse patient.[facility] the event this information is protected by the Federal Confidentiality of Alcohol and Drug Abuse Patient Records regulations: The Federal rules restrict any use of the information to criminally investigate or prosecute any alcohol or drug abuse patient.[facility] Hospital[facility] the event this information is protected by the Federal Confidentiality of Alcohol and Drug Abuse Patient Records regulations: The Federal rules restrict any use of the information to criminally investigate or prosecute any alcohol or drug abuse patient.[facility] Hospital[facility] the event this information is protected by the Federal Confidentiality of Alcohol and Drug Abuse Patient Records regulations: The Federal rules restrict any use of the information to criminally investigate or prosecute any alcohol or drug abuse patient.[facility] Hospital[facility] the event this information is protected by the Federal Confidentiality of Alcohol and Drug Abuse Patient Records regulations: The Federal rules restrict any use of the information to criminally investigate or prosecute any alcohol or drug abuse patient.[facility] Hospital[facility] the event this information is protected by the Federal Confidentiality of Alcohol and Drug Abuse Patient Records regulations: The Federal rules restrict any use of the information to criminally investigate or prosecute any alcohol or drug abuse patient.[facility] HospitalIn the event this information is protected by the Federal Confidentiality of Alcohol and Drug Abuse Patient Records regulations: The Federal rules restrict any use of the information to criminally investigate or prosecute any alcohol or drug abuse patient.[facility] HospitalIn the event this information is protected by the Federal Confidentiality of Alcohol and Drug Abuse Patient Records regulations: The Federal rules restrict any use of the information to criminally investigate or prosecute any alcohol or drug abuse patient.[facility] Reason for Visit (unrecogniz ed section and content) Reason Comments Refill Request Reason Comments Follow Up Reason Comments Results Reason Comments Release Of Medical Records Reason Onset Date Comments Refill Request 05/20/2023 Reason Comments Follow Up Benign Prostatic Hypertrophy Reason Comments Follow Up UTI Elevated PSA Reason Comments Follow Up Elevated PSA Care Team (unrecognized sect ion and content) Care Team Personnel Name: Sajan Vergara PT Position: P3 Scheduling - Nocturnist Advanced Member Role: Other Name: DENNIS SHAIKH DO Position: P4 Physician - Primary Care Member Role: Primary Care Physician Address: Address: [address] [place] [address]- Name: VELMA NEWBERRY MD Member Role: Knife Setter Address: Address: [address] [place] [address]- [place] Name: PRABHA GOOD MD Member Role: Jewel Bearing Grinder Address: Address: [facility] [address] [place] [address]- [place] Name: GAYLA VALVERDE MA, [facility] Member Role: Waffle Machine Operator Address: Address: [address] [place] [address]- [place] Care Team Related Persons Name: ADEN AMANDA Care Team Personnel Name: Sajan Vergara PT Position: P3 Scheduling - Nocturnist Advanced Member Role: Other Name: DENNIS SHAIKH DO Position: P4 Physician - Primary Care Member Role: Primary Care Physician Address: Address: [address] [place] [id number]- [place] Name: VELMA NEWBERRY MD Member Role: Knife Setter Address: Address: [address] [facility] [address] [place] [address]- [place] Name: PRABHA GOOD MD Member Role: Jewel Bearing Grinder Address: Address: [facility] [address] [place] [address]- [place] Name: GAYLA VALVERDE MA, [facility] Member Role: Waffle Machine Operator Address: Address: [address] [address] [place] [address]- Care Team Related Persons Name: ADEN AMANDA (unrecognized sect ion and content) No Status Records FoundNo Status Records Found INFORMATION SOURCE (unrecogn ized section and content) DATE CREATED AUTHOR 02/02/2024 formerly [facility] ([place]) DATE CREATED AUTHOR AUTHOR'S JAMEELIZ ATION 06/08/2024 [facility] FOR RECORDS PERTAINING TO PATIENTS WHO ARE OR HAVE BEEN ENROLLED IN A CHEMICAL DEPENDENCY/SUBSTANCEABUSE PROGRAM, SOME INFORMATION MAY BE OMITTED. This clinical summary was aggregated from multiple sources. Caution should be exercised in using it in the provision of clinical care. This summary normalizes information from multiple sources, and as a consequence, information in this document may materially change the coding, format and clinical context of patient data. In addition, data may be omitted in some cases. CLINICAL DECISIONS SHOULD BE BASED ON THE PRIMARY CLINICAL RECORDS. [facility]. provides no warranty or guarantee of the accuracy or completeness of information in this document.
--- NOTE | 2024-08-08 09:12 | STRESSREP ---
Stress Test Report Exercise myocardial perfusion stress test. 78-year-old man with a history of coronary artery disease Stress protocol: Resting EKG demonstrates normal sinus rhythm with a rate of 55 bpm resting blood pressure is 138/84 mmHg. The patient exercised according to the regular Jovanni protocol for a total duration of 4 minutes attaining a maximum heart rate of 144 bpm which was 101% of maximum predicted heart rate; the maximum workload was 7 metabolic equivalents. At rest there were no ST or T wave changes noted to suggest ischemia and at peak exercise upsloping ST changes only were noted which did not meet the criteria for ischemia. Premature ventricular complexes were noted especially during recovery. No clinical angina was noted the test was terminated due to the target heart rate being achieved/fatigue. The peak blood pressure was 152/84 mmHg. Rate-pressure product was 17,000. Myocardial perfusion protocol. 9.8 mCi of technetium 99m sestamibi was injected at rest. The patient exercised according to regular Jovanni protocol for total duration of 4-minute and at peak exercise 31 mCi of technetium 99m sestamibi was injected stress images were obtained stress and rest images were reconstructed in comparing the short axis vertical long and horizontal long axis. Gated images were also obtained. Perfusion SPECT analysis: Review of the stress images demonstrate normal uptake of tracer noted in all areas of the myocardium. There is a small area in the mid to distal anterior wall with reduced perfusion the resting images similarly demonstrate normal uptake of tracer noted in all areas of the myocardium. Mild reversibility is noted in the mid anterior wall. Reversibility are noted to suggest ischemia no previous infarct was noted. Gated SPECT analysis: The gated ejection fraction is 57%. Conclusion: Mildly abnormal exercise myocardial perfusion stress test with mild mid anterior ischemia. Preserved ejection fraction.
== END | disposition home or self-care (01) ==
LOC: CVS 05:57
PROVIDERS: PCP Family Medicine; Referring Provider Internal Medicine Cardiovascular Disease; Visit Provider Internal Medicine Cardiovascular Disease
DX: Z95.5 Presence of coronary angioplasty implant and graft (principal)
CPT/HCPCS: 78452; 93017; A9500; A4216

== ENCOUNTER 2024-08-15 08:08 | Day surgery (SDC) | payer MEDICARE, SELFPAY ==
[2024-08-10 08:50] LABS: Absolute Lymphocyte Count 2.18 X10^3/uL (0.83-4.51); Absolute Neutrophil Count 3.6 X10^3/uL (2.0-7.7); Basophil# 0.05 X10^3/uL; Basophil% 0.8 % (0-1); Eosinophils% 1.5 % (0-5); Hematocrit 41.4 % (40-54); Hemoglobin 14.1 g/dL (13.0-16.5); Lymphocyte # 2.18 X10^3/ul (0.83-4.51); Lymphocyte % 33.6 % (19-41); Mean Corp Hgb Conc 34.1 g/dL (32-36); Mean Corpuscular Hgb 32.4 pg (27.0-32.0); Mean Corpuscular Volume 95.2 fL (80-94); Mean Platelet Vol. 9.9 fl (6.2-12.0); Monocyte# 0.51 X10^3/uL; Monocyte% 7.9 % (0-10); NRBC Flagged by Analyzer 0 % (0-5); Neutrophil # 3.63 X10^3/uL (2.7-7.7); Neutrophil % 55.9 % (47-70); Platelet Count 203 K/mm3 (150-450); RBC Distribution Width CV 13.6 % (11.6-14.6); RBC Distribution Width SD 47.7 fl (35.1-43.9); Red Blood Count 4.35 M/mm3 (4.6-6.2); White Blood Count 6.5 K/mm3 (4.4-11.0)
[2024-08-10 09:22] LABS: Anion Gap 4 (5-15); BUN 29 mg/dL (7-18); BUN/Creat Ratio 22.3 RATIO (10-20); Calcium,Total 9.9 mg/dL (8.5-10.1); Chloride 108 mmol/L (98-107); EST Glomerular Filtration Rate 57 mL/min (>60); Est Glom Filt Rate - Afr Amer 69 mL/min (>60); Glucose 118 mg/dL (74-106); Potassium 4.6 mmol/L (3.5-5.1); Sodium Level 139 mmol/L (136-145)
[2024-08-12 09:52] VITALS: BMI 26.9
--- NOTE | 2024-08-15 10:10 | CL.D_ITS ---
Patient Name: ERNESTO AMANDA Study Date: 08/15/2024 Performing: Joshua Bennett MD Ht: 74 inches 187.96 cm : 1945 Wt: 209.99 lbs 95.25 kg Age: 78 Gender: male BSA: 2.22 PROCEDURE(S) PERFORMED DC01-(25544)LHC/COR/LV CLINICAL PROFILE AND INDICATIONS Indications: Suspected CAD Heart Failure: None Stress/Imaging Date: 08/04/24 CAD Presentations: Symptom unlikely to be ischemic. CONCLUSIONS Diffuse coronary disease status post previous stenting of the LAD which is patent with diffuse distal disease and posterolateral vessel disease with preserved ejection fraction RECOMMENDATIONS Medical therapy DESCRIPTION OF PROCEDURE The patient arrived to the procedure lab. The risks and benefits of the procedure as well as a full description of our services here and current unavailability of surgical backup were fully explained to the patient and/or their significant other prior to the catheterization. The Timeout was completed, verifying the correct patient and procedure. The patient's procedural site was prepped and draped in the usual fashion. Local anesthetic was given subcutaneously to right radial region with Lidocaine 2%. Using a modified Seldinger technique, arterial access was obtained via the right radial artery, a 6Fr sheath was inserted. Left Coronary Artery selective angiography was performed in multiple views using a 5 Fr. 4.0 [place] catheter. Right Coronary Artery selective angiography was then performed in multiple views using a 5 Fr. JR 5 catheter. Left Ventriculography was performed in BARNES projection using a 5 Fr. Pig[place] catheter. LV to AO pullback pressures were then recorded.The arterial sheath was pulled and a TR Band was applied for hemostasis 10ml of air CORONARY ANGIOGRAPHY DOMINANCE: Right Dominant LEFT HEART ASSESSMENT Left Ventricular Ejection Fraction: by LV Gram 60 % Normal LV wall motion Normal Left Ventricular systolic function LEFT MAIN: Mildly calcified with mild atherosclerotic plaquing and mild stenosis LEFT ANTERIOR DESCENDING ARTERY: Previously stented vessel. 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 The stent itself appears to be patent with minimal in-stent stenosis and distally there is 70% stenosis close to the apex. The second diagonal vessel is diffusely diseased calcified with mid segment 60 to 70% stenosis present. CIRCUMFLEX ARTERY: Moderate diffuse disease is present RIGHT CORONARY ARTERY: Dominant large vessel with proximal eccentric 30% stenosis, mid 40% stenosis, and a second posterolateral vessel with 2 tandem 95% stenotic lesions. COMPLICATIONS No Complications PROCEDURE MEDICATIONS Fentanyl 50 mcg IV Versed 1 mg IV Oxygen: 2 L/min via nasal cannula Heparin given IA 08/15/2024 09:47:26 Verapamil 2.5mg, Ntg 100mcgs, 3000 units of Heparin given IA 08/15/2024 09:47:26 SUMMARY OF HEMODYNAMIC DATA Time AIR REST ECG 08:29:28 AO 124/76 (98) SA 09:49:49 AO 119/76 (95) 09:50:56 AO 123/77 (95) 09:56:22 LV 131/13, 28 10:00:48 LV 129/14, 24 10:00:56 LV 116/21, 24 10:01:25 LV 115/11, 18 10:01:33 LVp 96/8, 15 10:01:40 AOp 115/64 (88) 10:01:47 Signed By Joshua Bennett MD On 08/15/2024 10:08:52 Joshua Bennett MD
== END 2024-08-15 11:35 | disposition home or self-care (01) ==
PROVIDERS: Nurse Practitioner Gerontology; PCP Family Medicine; Referring Provider Internal Medicine Cardiovascular Disease; Visit Provider Internal Medicine Cardiovascular Disease
DX: I25.10 Atherosclerotic heart disease of native coronary artery without angina pectoris (principal); I25.2 Old myocardial infarction; E78.00 Pure hypercholesterolemia, unspecified; I10 Essential (primary) hypertension; Z79.899 Other long term (current) drug therapy; Z79.82 Long term (current) use of aspirin; Z95.5 Presence of coronary angioplasty implant and graft; Z87.891 Personal history of nicotine dependence
CPT/HCPCS: 36415; 80048; 85025; 93458; 99152; 99153; J7040; Q9967; C1769; C1894

== ENCOUNTER → 2025-04-19 | Outpatient (CLI) | payer MEDICARE, SELFPAY ==
[2025-04-19 09:06] LABS: AST(SGOT) 25 U/L (<=37); Alanine Aminotransfer ALT/SGPT 29 U/L (<=46); Albumin, Serum 4.3 g/dL (3.4-4.8); Alkaline Phosphatase 70 U/L (40-129); Bilirubin, Direct 0.23 mg/dL (0.00-0.30); Cholesterol 128 mg/dL (<=200); Globulin 3.0 g/dL (2.2-4.2); Low Density Lipoprotein Calc. 65 mg/dL; Triglycerides 70 mg/dL; Very Low Density Lipoprotein 14 mg/dL (5-40); cholesterol:hdl ratio screen 2.59
== END | disposition home or self-care (01) ==
PROVIDERS: PCP Family Medicine; Referring Provider Nurse Practitioner Gerontology; Visit Provider Nurse Practitioner Gerontology
DX: E78.00 Pure hypercholesterolemia, unspecified (principal)
CPT/HCPCS: 36415; 80061; 80076